=== PATIENT | male | born 1940 | race Caucasian/White ===

== ENCOUNTER 2016-04-24 23:34 | Emergency (ER) | payer OTHER ==
[~2016-04-24] VITALS: Ht 180.3 cm; Wt 99.5 kg
[2016-04-24 23:38] VITALS: TEMP 36.6; Ht 180.3 cm; Wt 99.5 kg
--- NOTE | 2016-04-25 00:20 | EMERGENCY ROOM VISIT NOTE ---
History Report prepared by Nydia: Kamila Schneider Under the Supervision of: Dr. Silvino Moyer M.D. First contact with patient: 23:52 Chief Complaint: URINARY SYMPTOMS Stated Complaint: BLOOD IN URINE Nursing Triage Summary: pt reports he noticed "a lot" of bright red blood in his urine starting at 0 today. Hx of enlarged prostate. Denies flank or back pain. No pain or discomfort during urination. History of Present Illness The patient is a 75 year old male who presents to the Emergency Room with complaints of persistent hematuria that started around 2129 tonight. He admits to some mild flank pain. He states he is still able to urinate normally and denies any dysuria, his urine is just "really red". He denies any history of kidney stones but notes he has a history of an enlarged prostate. He does take a daily baby Aspirin. He denies any fevers, headaches, chest pain, shortness of breath, abdominal pain, rashes or recent trauma. The patient denies any personal history of cancer or blood clots. He also denies any rectal pain or pain with bowel movements. He reports he has never seen a Urologist before. Source of History: patient Onset: 2129 tonight Position: other (urinary system) Timing: other (persistent) Associated Symptoms: + back pain, No SOB, No abdominal pain, No chest pain, No fevers, No headache, No rash Review of Systems See HPI for pertinent positives & negatives. A total of 10 systems reviewed and were otherwise negative. Past Medical & Surgical Medical Problems: (1) Enlarged prostate Family History Cancer Social History Smoking Status: Never Smoker Alcohol Use: none Drug Use: none Marital Status: Housing Status: lives with family Occupation Status: retired Current/Historical Medications Scheduled Ciprofloxacin Tab (Cipro), 1 TAB PO BID Physical Exam Vital Signs Date Time Temp Pulse Resp B/P Pulse Ox O2 Delivery O2 Flow Rate FiO2 04/25/16 01:24 87 18 127/71 95 Room Air 04/24/16 23:38 36.6 104 18 127/79 93 Room Air Physical Exam GENERAL: Patient is mildly anxious appearing and appears to be in minimal distress. HEENT: No acute trauma, normocephalic atraumatic, mucous membranes moist, no nasal congestion, no scleral icterus. NECK: No stridor, no adenopathy, no meningismus, trachea is midline. LUNGS: No dyspnea. Clear to auscultation and equal bilaterally. No wheeze, no rhonchi. HEART: Regular rate and rhythm. No murmurs, rubs, gallops appreciated. ABDOMEN: Soft, nontender, bowel sounds positive, no masses appreciated, no peritonitis. BACK: No midline tenderness, no CVA tenderness EXTREMITIES: Normal motion all extremities, no cyanosis, no edema. NEUROLOGIC: Alert and oriented, no acute motor or sensory deficits, no focal weakness, cranial nerves grossly intact. SKIN: No rash, no jaundice, no diaphoresis. Medical Decision & Procedures Laboratory Results Test 04/25/16 00:30 Urine Color RED Urine Appearance CLOUDY (CLEAR) Urine pH 6.0 (4.5-7.5) Urine Specific [place] 1.025 (1.000-1.030) Urine Protein 3+ (NEG) Urine Glucose (UA) NEG (NEG) Urine Ketones TRACE (NEG) Urine Occult Blood 3+ (NEG) Urine Nitrite NEG (NEG) Urine Bilirubin NEG (NEG) Urine Urobilinogen NEG (NEG) Urine Leukocyte Esterase NEG (NEG) Urine RBC >30 /hpf (0-4) Urine WBC 10-30 /hpf (0-5) Urine Epithelial Cells 20-30 /lpf (0-5) Urine Bacteria 1+ (NEG) Laboratory results as reviewed by me. Medications Administered Medications (Trade) Dose Ordered Sig/Colt Route Start Time Stop Time Status Last Admin Dose Admin Ciprofloxacin (Cipro Tab) 500 mg NOW STAT PO 04/25/16 01:33 04/25/16 01:34 DC 04/25/16 01:38 500 MG Ciprofloxacin (Cipro 500MG Home Pack) 1 homepack UD ONCE PO 04/25/16 01:45 04/25/16 01:46 DC 04/25/16 01:44 1 HOMEPACK ED Course 0015: The patient was evaluated in room B12. A complete history and physical exam was performed. 0133: Cipro Tab 500 mg PO. 0140: I reevaluated the patient. He is feeling much better. I discussed his results and discharge instructions and he verbalized complete understanding and agreement. 0145: Cipro Tab 500 mg 1 homepack PO. Medical Decision Differential: UTI, Cancer, Spontaneous bleed, renal colic, Hemorrhagic Cystitis , Prostatitis amongst other pathologies entertained. 75 yr old male with painless hematuria. Did note very faint right lower back discomfort though no flank pain nor other symptoms. No rashes appreciated. No rectal pain nor pain with bowel movements. Stable and in no distress. UA clearly bloody with 1+ bacteria. Will start 1 week of cipro with PCP follow up in 1 week. Given Uro information to make appointment with them as well. Discussed symptoms requiring return. I did discuss possibility that this is cancer related and the importance of PCP/Uro follow up. Aware risks of retention. With no other significant symptoms I do not feel imaging indicated at this time nor further lab testing. Impression Primary Impression: Blood in urine Scribe Attestation The scribe's documentation has been prepared under my direction and personally reviewed by me in its entirety. I confirm that the note above accurately reflects all work, treatment, procedures, and medical decision making performed by me. Departure Information Dispostion Home / Self-Care Prescriptions Ciprofloxacin Tab (Cipro) 250 Mg Tab 1 TAB PO BID for 7 Days, #14 TAB Prov: Silvino Moyer M.D. 04/25/16 Referrals Evangelist Bragg III, M.D. (PCP) Chinyere Mercado MD Patient Instructions ED Hematuria, My [facility] Additional Instructions Please follow up with your primary care provider in 1 week for repeat check.
[2016-04-25 01:12] LABS: MANUAL MICROSCOPIC REQUIRED? YES; URINE APPEARANCE CLOUDY (CLEAR); URINE BILIRUBIN NEG (NEG); URINE COLOR RED; URINE NITRITE NEG (NEG); URINE SPECIFIC GRAVITY 1.025 (1.000-1.030); UROBILINOGEN NEG (NEG)
[2016-04-25 01:13] LABS: REVIEW REQ? NO
[2016-04-25 01:15] LABS: URINE RBC >30 /hpf (0-4)
[2016-04-25 01:18] LABS: URINE BACTERIA 1+ (NEG)
[2016-04-25 01:19] LABS: ZZUR CULT IF INDIC CLEAN CATCH YES
[2016-04-25 01:24] VITALS: BP 127/71; PULSE 87; O2SAT 95
[2016-04-25] MEDS ORDERED: CIPROFLOXACIN 500 MG TAB PO STA (01:33)
[2016-04-25] MEDS ORDERED: CIPR1TAB11 PO (01:34)
[2016-04-25] MEDS ORDERED: CIPROFLOXACIN 500MG HOME PACK PO ONE (01:45)
[2016-06-12] MEDS ORDERED: SIMV40TA2 PO (14:38)
[2016-06-12] MEDS ORDERED: LISI-461 PO (14:38)
[2016-06-12] MEDS ORDERED: TADA10TA PO (14:38)
[2016-06-12] MEDS ORDERED: CHOL2000 PO (14:38)
[2016-06-12] MEDS ORDERED: ASPI81TA28 PO (14:38)
[2016-06-25] MEDS ORDERED: OXYC-57 PO (11:41)
== END 2016-04-25 01:45 | disposition home or self-care (01) ==
LOC: C.EDB 23:35
DX: R31.9 Hematuria, unspecified (principal); N40.0 Benign prostatic hyperplasia without lower urinary tract symptoms; Z80.9 Family history of malignant neoplasm, unspecified

== ENCOUNTER → 2016-04-30 | Outpatient (CLI) | payer OTHER ==
[~2016-04-30] MED LIST: ASPI81TA28 PO; CHOL2000 PO; CIPR1TAB11 PO; LISI-461 PO; OXYC-57 PO; SIMV40TA2 PO; TADA10TA PO
== END | disposition home or self-care (01) ==
LOC: C.PATHSPEC 17:25
PROVIDERS: ATTEND Urology
DX: Z12.5 Encounter for screening for malignant neoplasm of prostate (principal)

== ENCOUNTER → 2016-05-10 | Outpatient (CLI) | payer OTHER ==
[~2016-05-10] MED LIST changes: -CIPR1TAB11 PO; +OPTIRAY 320 IV PRN
--- NOTE | 2016-05-10 11:06 | DIAGNOSTIC IMAGING REPORT ---
ABDOMEN AND PELVIS CT WITH AND WITHOUT IV CONTRAST, UROGRAM PROTOCOL CT DOSE: 1880.80 mGycm HISTORY: Hematuria. TECHNIQUE: Multiaxial CT images of the abdomen and pelvis were performed both before and after the use of intravenous contrast to evaluate the urinary system. Maximal intensity projection images were performed at the workstation by the radiologist. COMPARISON STUDY: None. FINDINGS: No renal or ureteral calculi. No hydronephrosis. No suspicious filling defects seen within the bilateral renal collecting systems, ureters, or bladder. A 3 mm hypodense lesion within the right kidney is too small to characterize. There is mild to moderate bladder wall thickening. The lung bases are clear. There are few hypodense lesions within the left hepatic dome with the largest measuring 2.2 cm. These favor cysts. The gallbladder, spleen, adrenal glands, and pancreas are unremarkable. No retroperitoneal lymphadenopathy. Left retroaortic renal vein. Small fat-containing umbilical hernia. No bowel wall thickening or obstruction. IMPRESSION: 1. No renal or ureteral stones. No hydronephrosis. 2. No suspicious filling defects seen within the opacified bilateral renal collecting systems, ureters, or bladder. 3. Mild/moderate bladder wall thickening. Some of this may be due to the underdistention. Electronically signed by: Antonio Godinez M.D. 05/10/2016 11:05 AM Dictated Date/Time: 05/10/2016 10:20 AM
== END | disposition home or self-care (01) ==
LOC: C.CTS 09:50
PROVIDERS: ATTEND Urology
DX: R31.9 Hematuria, unspecified (principal)

== ENCOUNTER 2016-06-25 08:29 | Day surgery (SDC) | payer OTHER ==
--- NOTE | 2016-06-12 15:02 | PAT Medication Instructions ---
Service Date Jun 12, 2016. Current Home Medication List Aspirin (Aspirin Ec), 81 MG PO QPM Cholecalciferol (Vitamin D3), 1 CAP PO QPM Lisinopril (Zestril), 10 MG PO QPM Simvastatin (Zocor), 40 MG PO QPM Tadalafil (Cialis), 10 MG PO UD Medication Instructions For Your Scheduled Surgery - Take the following medications as scheduled the night before surgery: Aspirin (Aspirin Ec), 81 MG PO QPM Cholecalciferol (Vitamin D3), 1 CAP PO QPM Simvastatin (Zocor), 40 MG PO QPM - DO NOT Take the following medications as scheduled the night before surgery: Lisinopril (Zestril), 10 MG PO QPM Nothing to eat or drink after midnight If you have any questions please call us at [phone] or [phone] or [phone]
[2016-06-12 15:48] LABS: BASO % 0.3 %; BASO ABS # 0.02 K/uL (0-0.2); COMPLETE YES; EOS % 1.9 %; HEMATOCRIT 45.4 % (42-52); IG% 0.2 %; LYMPH % 12.6 %; LYMPH ABS # 0.78 K/uL (1.2-3.4); MEAN CELL VOLUME 91.2 fL (80-100); MEAN CORPUSCULAR HEMOGLOBIN 30.5 pg (25-34); MEAN CORPUSCULAR HGB CONC 33.5 g/dl (32-36); MEAN PLATELET VOLUME 10.3 fL (7.4-10.4); MONO % 13.4 %; NEUT % 71.6 %; PLATELET COUNT 309 K/uL (130-400); RED BLOOD COUNT 4.98 M/uL (4.7-6.1); WHITE BLOOD COUNT 6.21 K/uL (4.8-10.8)
--- NOTE | 2016-06-12 15:54 | DIAGNOSTIC IMAGING REPORT ---
CHEST 2 VIEWS ROUTINE HISTORY: Preop. COMPARISON: None. FINDINGS: The lungs are clear. Cardiac silhouette is normal in size. No pleural effusions. No pneumothorax. IMPRESSION: No acute process. Electronically signed by: Antonio Godinez M.D. 06/12/2016 3:52 PM Dictated Date/Time: 06/12/2016 3:51 PM
[2016-06-12 15:57] LABS: URINE APPEARANCE CLEAR (CLEAR); URINE BILIRUBIN NEG (NEG); URINE COLOR YELLOW; URINE NITRITE NEG (NEG); URINE PH 6.5 (4.5-7.5); URINE SPECIFIC GRAVITY 1.016 (1.000-1.030); UROBILINOGEN NEG (NEG)
[2016-06-12 16:09] LABS: BUN/CREATININE RATIO 16.3 (10-20); CALCIUM 9.2 mg/dl (8.5-10.1); CREATININE 1.2 mg/dl (0.60-1.40); POTASSIUM 4.2 mmol/L (3.5-5.1)
[2016-06-12 16:15] LABS: MANUAL MICROSCOPIC REQUIRED? NO; REVIEW REQ? NO
[~2016-06-25] VITALS: Ht 180.3 cm; Wt 98.6 kg
[~2016-06-25 08:29] MED LIST changes: +CIPROFLOXACIN / D5W 400 MG IV SCH; +DEXAMETHASONE SOD INJ 4 MG/ML VIAL ONE; +FENTANYL CITRATE INJ 50 MCG/1 ML 2 ML VIAL ONE; +LACTATED RINGER'S 1000ML 1,000 ML IV SCH; +LACTATED RINGER'S 1000ML 500 ML IV ONE; +LIDOCAINE HCL 2% 2 ML VIAL (20MG/ML) ONE; +ONDANSETRON INJ 2 MG/ML 2 ML VIAL ONE; -OPTIRAY 320 IV PRN; -OXYC-57 PO; +PROPOFOL IV EMULSION 10 MG/ML 20 ML VIAL IV ONE
[2016-06-25 09:03] VITALS: BP 137/82; PULSE 100; TEMP 36.9; O2SAT 97; Ht 180.3 cm; Wt 98.6 kg
--- NOTE | 2016-06-25 10:12 | History & Physical Bridge Note ---
H&P Re-Evaluation Bridge Note: I have examined the patient, reviewed the History & Physical and in the interval since the performance of the History & Physical I have noted the following changes of clinical significance: No changes noted
[2016-06-25] MEDS ORDERED: CONRAY 30% 150ML BOTTLE ONE (10:40)
[2016-06-25] MEDS ORDERED: FENTANYL CITRATE INJ 50 MCG/1 ML 2 ML VIAL ONE (11:19)
[2016-06-25] MEDS ORDERED: PHENYLEPHRINE 100MCG/ML 5ML SYR ONE ×2 (11:26→11:27)
[2016-06-25] MEDS ORDERED: OXYC-57 PO (11:41)
--- NOTE | 2016-06-25 11:41 | [facility] Post Operative Brief Note ---
Immediate Operative Summary Operative Date Jun 25, 2016. Pre-Operative Diagnosis abnormal bladder mucosa Post-Operative Diagnosis abnormal bladder mucosa Procedure(s) Performed cystoscopy, bladder biospy, fulgeration Surgeon Dr Barrie Walker Molecular Biology Scientist Surgeon(s) none Estimated Blood Loss 2ml Findings abnormal mucosa at dome Specimens A: Bladder biopsy Drains none Anesthesia gen Complication(s) None Disposition Recovery Room / PACU
--- NOTE | 2016-06-25 11:42 | Discharge Instructions ---
Discharge Instructions Date of Service Jun 25, 2016. Visit Reason for Visit: Abnormal Mucosa Discharge Discharge Diagnosis / Problem: abnormal bladder mucosa Discharge Goals Goal(s): Therapeutic intervention Activity Recommendations Activity Limitations: resume your previous activity (take it easy today) Anesthesia . Post Anesthesia Instructions: If you have had General Anesthesia or IV Sedation: * Do not drive today. * Resume driving when surgeon permits. * Do not make important decisions or sign legal documents today. * Call surgeon for: 1. Temperature elevations greater than 101 degrees F. 2. Uncontrollable pain. 3. Excessive bleeding. 4. Persistent nausea and vomiting. 5. Medication intolerance (nausea, vomiting or rash). * For nausea and vomiting use only clear liquids such as: tea, soda, bouillon until nausea subsides, then gradually increase diet as tolerated. * If you have any concerns or questions, call your surgeon's office. If physician is unavailable and it is an emergency, call 911 or go to the nearest emergency room. . Diet Recommendations Recommended Home Diet: resume previous diet Procedures Procedures Performed: cystoscopy, bladder biospy, fulgeration Pending Studies Studies pending at discharge: no Medical Emergencies . Who to Call and When: Medical Emergencies: If at any time you feel your situation is an emergency, please call 911 immediately. . Non-Emergent Contact Non-Emergency issues call your: Urologist . . "Provider Documentation" section prepared by Barrie Walker. [place] Drug Monitoring Program Search Results: patient reviewed within database
[2016-06-25] MEDS ORDERED: OXYCODONE/ACETAMINOPHEN 5-325 TAB PO PRN (11:45)
--- NOTE | 2016-06-25 12:22 | Anesthesiology Progress Note ---
Anesthesia Post Op Note Date & Time Jun 25, 2016 at 12:22 Vital Signs Pain Intensity: 0 Vital Signs Past 12 Hours Date Time Temp Pulse Resp B/P Pulse Ox O2 Delivery O2 Flow Rate FiO2 06/25/16 12:15 36.7 100 13 117/77 94 Room Air 06/25/16 12:05 94 11 107/78 92 Room Air 06/25/16 11:55 100 19 116/74 99 Mask 10 06/25/16 11:45 105 15 98/63 96 Mask 10 06/25/16 11:39 36.5 112 12 122/67 95 Mask 10 06/25/16 09:03 36.9 100 18 137/82 97 Room Air Notes Mental Status: alert / awake / arousable, participated in evaluation Pt Amnestic to Procedure: Yes Nausea / Vomiting: adequately controlled Pain: adequately controlled Airway Patency, RR, SpO2: stable & adequate BP & HR: stable & adequate Hydration State: stable & adequate Anesthetic Complications: no major complications apparent
[2016-06-25 12:25] VITALS: BP 119/73; PULSE 93; TEMP 36.9; O2SAT 95
[2016-06-25 12:55] VITALS: BP 120/76; PULSE 84; TEMP 36.3; O2SAT 98
[2016-06-25 13:25] VITALS: BP 119/70; PULSE 89; TEMP 36.6; O2SAT 97
--- NOTE | 2016-06-25 14:00 | OPERATIVE REPORT ---
DATE OF OPERATION: 06/25/2016 PREOPERATIVE DIAGNOSIS: Abnormal bladder mucosa. POSTOPERATIVE DIAGNOSIS: Same. PROCEDURE: Cystoscopy, bladder biopsy x4 with fulguration. FINDINGS: Cystoscopic exam revealed normal anterior urethra. Prostatic fossa was mild to moderately obstructing with kissing lateral lobes and elevated median lobe. Bladder showed 1+ trabeculation. There were no bladder tumors seen. Both ureteral orifices were effluxing clear urine. There was an area on the dome of the bladder which was some beefy red and heaped up mucosa which was somewhat worrisome for carcinoma in situ. SURGEON: Dr. Walker. ANESTHESIA: General. DRAINS: None. COMPLICATIONS: None. SPECIMENS: Bladder biopsy x4. INDICATIONS: The patient is a 75-year-old white male who on workup for hematuria was found to have some abnormal bladder mucosa is being brought in now for biopsy. PROCEDURE: After the induction of an adequate general anesthetic and appropriate time-out, the patient was placed in the dorsal lithotomy position, lower abdomen and genitalia were prepped with Hibiclens and draped in a sterile fashion. Using a 22-Cymraes cystoscope, routine cystoscopic exam was performed with the above-noted findings with the 30 and 70 degree lenses. Next, using cold cup biopsy forceps, the abnormal mucosa was biopsied x4 and off the table as specimen. Next, using a Bugbee electrode the entire area was fulgurated for hemostasis and to eliminate the rest of the abnormal-looking mucosa. After completing this making sure there was no bleeding. The patient's bladder was drained, cystoscope and sheath were removed. All needle, sponge and instrument counts were correct at the end of the case. The patient tolerated the procedure well and went to the recovery room in stable condition. I attest to the content of the Intraoperative Record and any orders documented therein. Any exceptio ns are noted below.
== END 2016-06-25 13:40 | disposition home or self-care (01) ==
LOC: C.ACU 08:29
PROVIDERS: ATTEND Urology
DX: R94.8 Abnormal results of function studies of other organs and systems (principal); N40.0 Benign prostatic hyperplasia without lower urinary tract symptoms; Z87.891 Personal history of nicotine dependence; Z79.82 Long term (current) use of aspirin; Z83.3 Family history of diabetes mellitus

== ENCOUNTER 2020-07-14 16:42 | Inpatient (IN) ==
[2020-07-14] MEDS ORDERED: SODIUM CHLORIDE 0.9% 1000ML 1,000 ML IV ONE (17:13)
--- NOTE | 2020-07-14 17:20 | Emergency Department Note ---
Impression & Plan Pneumonia due to COVID-19 virus, Hypoxia, Breath shortness ED Provider Note NAME: VIKAS COLLINS AGE: 79 SEX: M : 1940 ARRIVES VIA: Walk-In INFORMANT: Patient ED PROVIDER(S): Mainor Massey DO CHIEF COMPLAINT: Shortness of breath HPI: Patient is an 79-year-old male who presents to the ER for shortness of breath. Symptoms started this past Friday. He admits to cough and congestion as well as loss of taste or smell. Everybody in the family's been sick with same symptoms. Denies any headache or change in vision. No chest pain, belly pain, nausea, vomiting, or diarrhea. No dysuria, urgency, or frequency. ROS: See above HPI for pertinent positives & negatives. A total of 10 systems reviewed and were otherwise negative. PAST MEDICAL HISTORY:See Below PAST SURGICAL HISTORY:See Below FAMILY HISTORY:See Below SOCIAL HISTORY:See Below HOME MEDICATIONS:See Below ALLERGIES:See Below VITALS:See Below PHYSICAL EXAMINATION: GENERAL: Sitting up in bed, alert, ill-appearing, disheveled, on nasal cannula EYE EXAM: normal conjunctiva. OROPHARYNX: no exudate, no erythema, lips, buccal mucosa, and tongue normal and mucous membranes are moist NECK: supple, no nuchal rigidity, no adenopathy, non-tender LUNGS: Diminished bilaterally. Normal chest wall mechanics HEART: no murmurs, S1 normal and S2 normal ABDOMEN: abdomen soft, non-tender, normo-active bowel sounds, no masses, no rebound or guarding. BACK: Back is symmetrical on inspection and there is no deformity, no midline tenderness, no CVA tenderness. SKIN: no rashes and no bruising UPPER EXTREMITIES: upper extremities are grossly normal. LOWER EXTREMITIES: No pitting edema. Calves are equal bilateral NEURO EXAM: Normal sensorium, cranial nerves II-XII grossly intact, normal speech, no gross weakness of arms, no gross weakness of legs. MEDICAL DECISION MAKING: Patient is an 79-year-old male who presents ER with a cough and shortness of breath. He was found to be hypoxic. He was placed on 4 L nasal cannula initially. IV was established blood work was obtained. Labs show no significant leukocytosis or anemia. BMP with mild hyponatremia. LFTs bilirubin was unremarkable. Troponin was negative. He is Covid positive. Chest x-ray with multifocal pneumonia. Lipase slightly elevated at 458. Patient was given steroids and remained on nasal cannula. He was updated bedside and discussed with the hospitalist for further evaluation. Triage Nursing notes reviewed. Limited review of prior medical records performed Vital Signs: reviewed and remarkable for hypoxic Differential diagnosis: Differential diagnoses includes but is not limited to pneumonia, bronchitis, COPD/Asthma exacerbation, pneumothorax, pulmonary embolism, congestive heart failure, acute coronary syndrome ER treatment provided: See below Diagnostics interpreted by me: ECG: Sinus rhythm rate of 91 Left axis No PVCs QTC 396 Cardiac Monitoring: An order was placed for continuous cardiac monitoring. The monitor shows a rate of 80 with sinus rhythm. Laboratory studies: As stated above and show below. Imaging studies: Portable AP upright 1 view of the chest shows multifocal pneumonia Consultation(s): Discussed with the hospitalist for further evaluation Procedures: none Critical Care: I have personally spent 40 minutes of critical care time in the direct management of this patient. This includes bedside care, interpretation of diagnostic studies, and testing, discussion with consultants, patient, and family members, and other required patient management activities. This 40 min utes is in excess of all separately billable procedures. Past Med/Surg History Medical History (Updated 07/14/20 @ 21:38 by Mainor Massey DO) Hematuria No pertinent past medical history Prostate cancer screening encounter, options and risks discussed Surgical History (Updated 11/22/19 @ 14:52 by Todd Pascual) No pertinent past surgical history Family History (Updated 11/22/19 @ 14:53 by Todd Pascual) Brother Diabetes Social History (Updated 11/22/19 @ 14:53 by Todd Pascual) Smoking Status: Former smoker Tobacco Type: Cigarettes Preferred Language: Citizen Of [place] marital status: Feels Safe at Home: Yes Allergies Allergies Allergy/AdvReac Type Severity Reaction Status Date / Time ENVIRONMENTAL Allergy Intermediate RUNNY Uncoded 07/14/20 17:37 NOSE, SNEEZING Home Meds Home Medications Medication Instructions Recorded Confirmed cholecalciferol (vitamin D3) 25 1,000 unit PO DAILY 11/22/19 07/14/20 mcg (1,000 unit) tablet coQ10 (ubiquinol) 100 mg capsule 100 mg PO DAILY 11/22/19 07/14/20 lisinopril 10 mg tablet 10 mg PO DAILY 11/22/19 07/14/20 simvastatin 40 mg tablet 40 mg PO HS 11/22/19 07/14/20 tadalafil 20 mg tablet 10 - 20 mg PO DIRECTED PRN 11/22/19 07/14/20 aspirin 81 mg PO DAILY 07/14/20 07/14/20 dextromethorphan-guaifenesin 10 ml PO DIRECTED PRN 07/14/20 07/14/20 [Delsym Cough-Chest Congest DM] tamsulosin 0.8 mg PO DAILY 07/14/20 07/14/20 Results & Data (ED) Vital Signs Vital Signs - 24 hr 07/14/20 16:55 07/14/20 17:16 07/14/20 17:20 Temperature 37.6 C H Temperature Source Temporal Artery Scan Pulse Rate 93 H 88 90 Pulse Rate from SpO2 Sensor 87 88 Pulse Rhythm Respiratory Rate 24 Respiratory Effort / Characteristics Short of Breath Blood Pressure 144/66 H Blood Pressure Mean 92 Blood Pressure Position Sitting Pulse Oximetry 74 L 96 94 Oxygen Delivery Method Room Air Oxygen Flow Rate Sepsis Recent Fever Within 48 Hours No Sepsis New/Unexplained Change in Mental Status N/A Sepsis Action Taken by Nursing No Action Required 07/14/20 17:26 07/14/20 17:30 07/14/20 17:40 Temperature Temperature Source Pulse Rate 88 88 95 H Pulse Rate from SpO2 Sensor 88 91 H Pulse Rhythm Regular Respiratory Rate 20 21 Respiratory Effort / Characteristics Blood Pressure Blood Pressure Mean Blood Pressure Position Pulse Oximetry 95 94 94 Oxygen Delivery Method Oxymask Oxygen Flow Rate 8 Sepsis Recent Fever Within 48 Hours Sepsis New/Unexplained Change in Mental Status Sepsis Action Taken by Nursing 07/14/20 17:50 07/14/20 18:00 07/14/20 18:01 Temperature Temperature Source Pulse Rate 88 89 89 Pulse Rate from SpO2 Sensor 90 91 H 89 Pulse Rhythm Respiratory Rate 32 H Respiratory Effort / Characteristics Blood Pressure 138/64 Blood Pressure Mean 88 Blood Pressure Position Pulse Oximetry 96 96 97 Oxygen Delivery Method Oxygen Flow Rate Sepsis Recent Fever Within 48 Hours Sepsis New/Unexplained Change in Mental Status Sepsis Action Taken by Nursing 07/14/20 18:10 07/14/20 18:20 07/14/20 18:30 Temperature Temperature Source Pulse Rate 85 83 83 Pulse Rate from SpO2 Sensor 86 85 83 Pulse Rhythm Respiratory Rate 29 H 32 H 37 H Respiratory Effort / Characteristics Blood Pressure 130/67 Blood Pressure Mean 88 Blood Pressure Position Pulse Oximetry 96 94 96 Oxygen Delivery Method Oxygen Flow Rate Sepsis Recent Fever Within 48 Hours Sepsis New/Unexplained Change in Mental Status Sepsis Action Taken by Nursing 07/14/20 18:31 07/14/20 18:40 07/14/20 18:50 Temperature Temperature Source Pulse Rate 81 83 82 Pulse Rate from SpO2 Sensor 81 83 82 Pulse Rhythm Respiratory Rate 35 H 29 H 27 H Respiratory Effort / Characteristics Blood Pressure Blood Pressure Mean Blood Pressure Position Pulse Oximetry 96 95 93 Oxygen Delivery Method Oxygen Flow Rate Sepsis Recent Fever Within 48 Hours Sepsis New/Unexplained Change in Mental Status Sepsis Action Taken by Nursing 07/14/20 19:00 07/14/20 19:01 07/14/20 19:10 Temperature Temperature Source Pulse Rate 82 83 83 Pulse Rate from SpO2 Sensor 83 84 83 Pulse Rhythm Respiratory Rate 33 H 40 H 32 H Respiratory Effort / Characteristics Blood Pressure 129/64 Blood Pressure Mean 85 Blood Pressure Position Pulse Oximetry 94 93 96 Oxygen Delivery Method Oxygen Flow Rate Sepsis Recent Fever Within 48 Hours Sepsis New/Unexplained Change in Mental Status Sepsis Action Taken by Nursing 07/14/20 19:20 07/14/20 19:30 07/14/20 19:31 Temperature Temperature Source Pulse Rate 96 H 84 80 Pulse Rate from SpO2 Sensor 99 H 83 81 Pulse Rhythm Respiratory Rate 20 35 H 26 H Respiratory Effort / Characteristics Blood Pressure 121/70 Blood Pressure Mean 87 Blood Pressure Position Pulse Oximetry 90 93 94 Oxygen Delivery Method Oxygen Flow Rate Sepsis Recent Fever Within 48 Hours Sepsis New/Unexplained Change in Mental Status Sepsis Action Taken by Nursing 07/14/20 19:40 07/14/20 19:50 07/14/20 20:00 Temperature Temperature Source Pulse Rate 84 81 78 Pulse Rate from SpO2 Sensor 83 81 78 Pulse Rhythm Respiratory Rate 21 28 H 31 H Respiratory Effort / Characteristics Blood Pressure 132/68 Blood Pressure Mean 89 Blood Pressure Position Pulse Oximetry 93 93 92 Oxygen Delivery Method Oxygen Flow Rate Sepsis Recent Fever Within 48 Hours Sepsis New/Unexplained Change in Mental Status Sepsis Action Taken by Nursing 07/14/20 20:01 07/14/20 20:10 07/14/20 20:20 Temperature Temperature Source Pulse Rate 81 81 81 Pulse Rate from SpO2 Sensor 81 81 81 Pulse Rhythm Respiratory Rate 27 H Respiratory Effort / Characteristics Blood Pressure Blood Pressure Mean Blood Pressure Position Pulse Oximetry 93 94 94 Oxygen Delivery Method Oxygen Flow Rate Sepsis Recent Fever Within 48 Hours Sepsis New/Unexplained Change in Mental Status Sepsis Action Taken by Nursing 07/14/20 20:30 07/14/20 20:31 07/14/20 20:40 Temperature Temperature Source Pulse Rate 80 81 78 Pulse Rate from SpO2 Sensor 78 81 78 Pulse Rhythm Respiratory Rate 31 H 36 H Respiratory Effort / Characteristics Blood Pressure 124/66 Blood Pressure Mean 85 Blood Pressure Position Pulse Oximetry 93 92 93 Oxygen Delivery Method Oxygen Flow Rate Sepsis Recent Fever Within 48 Hours Sepsis New/Unexplained Change in Mental Status Sepsis Action Taken by Nursing 07/14/20 20:50 07/14/20 21:00 07/14/20 21:01 Temperature Temperature Source Pulse Rate 73 75 79 Pulse Rate from SpO2 Sensor 72 76 79 Pulse Rhythm Respiratory Rate 29 H 35 H 39 H Respiratory Effort / Characteristics Blood Pressure 128/60 Blood Pressure Mean 82 Blood Pressure Position Pulse Oximetry 93 93 93 Oxygen Delivery Method Oxygen Flow Rate Sepsis Recent Fever Within 48 Hours Sepsis New/Unexplained Change in Mental Status Sepsis Action Taken by Nursing Laboratory Data Result diagrams: 07/14/20 17:20 07/14/20 17:20 Lab Results 07/14/20 07/14/20 07/14/20 Range/Units 17:20 17:20 18:02 WBC 7.02 (4.8-10.8) K/uL RBC 4.50 L (4.7-6.1) M/uL Hgb 13.8 L (14.0-18.0) g/dL Hct 40.0 L (42-52) % MCV 88.9 (80-100) fL MCH 30.7 (25-34) pg MCHC 34.5 (32-36) g/dL RDW Std Deviation 45.6 (36.4-46.3) fL RDW Coeff of Coretta 13.8 (11.5-14.5) % Plt Count 290 (130-400) K/uL MPV 9.8 (7.4-10.4) fL Immature Gran % (Auto) 0.1 % Neut % (Auto) 89.7 % Lymph % (Auto) 4.4 % [place] % (Auto) 5.3 % Eos % (Auto) 0.4 % Baso % (Auto) 0.1 % Neut # (Auto) 6.29 (1.4-6.5) K/uL Lymph # (Auto) 0.31 L (1.2-3.4) K/uL [place] # (Auto) 0.37 (0.11-0.59) K/uL Eos # (Auto) 0.03 (0-0.5) K/uL Baso # (Auto) 0.01 (0-0.2) K/uL Immature Gran # (Auto) 0.01 (0.00-0.02) K/uL Sodium 134 L (136-145) mmol/L Potassium 4.5 (3.5-5.1) mmol/L Chloride 105 (98-107) mmol/L Carbon Dioxide 24 (21-32) mmol/L Anion Gap 5.0 (3-11) BUN 35 H (7-18) mg/dl Creatinine 1.47 H (0.6-1.4) mg/dl Est Cr Clr Drug Dosing 46.5 ml/min Est GFR ( Amer) 51.1 Est GFR (Non-Af Amer) 44.1 BUN/Creatinine Ratio 23.5 H (10-20) Glucose 114 H (70-99) mg/dl Calcium 8.6 (8.5-10.1) mg/dl Total Bilirubin 0.6 (0.2-1) mg/dl AST 58 H (15-37) U/L ALT 54 (12-78) U/L Alkaline Phosphatase 67 (45-117) U/L Troponin I < 0.015 (0-0.045) ng/ml Total Protein 8.1 (6.4-8.2) gm/dl Albumin 3.2 L (3.4-5.0) gm/dl Globulin 4.9 H (2.5-4.0) gm/dl Albumin/Globulin Ratio 0.7 L (0.9-2) Lipase 458 H (73-393) U/L COVID-19 Eval Order CovFluRsv at [facility] SARS-CoV-2 (PCR) (Negative) Influenza Type A (PCR) (Neg) Influenza Type B (PCR) (Neg) RSV (RT-PCR) (Neg) 07/14/20 Range/Units 18:02 WBC (4.8-10.8) K/uL RBC (4.7-6.1) M/uL Hgb (14.0-18.0) g/dL Hct (42-52) % MCV (80-100) fL MCH (25-34) pg MCHC (32-36) g/dL RDW Std Deviation (36.4-46.3) fL RDW Coeff of Coretta (11.5-14.5) % Plt Count (130-400) K/uL MPV (7.4-10.4) fL Immature Gran % (Auto) % Neut % (Auto) % Lymph % (Auto) % [place] % (Auto) % Eos % (Auto) % Baso % (Auto) % Neut # (Auto) (1.4-6.5) K/uL Lymph # (Auto) (1.2-3.4) K/uL [place] # (Auto) (0.11-0.59) K/uL Eos # (Auto) (0-0.5) K/uL Baso # (Auto) (0-0.2) K/uL Immature Gran # (Auto) (0.00-0.02) K/uL Sodium (136-145) mmol/L Potassium (3.5-5.1) mmol/L Chloride (98-107) mmol/L Carbon Dioxide (21-32) mmol/L Anion Gap (3-11) BUN (7-18) mg/dl Creatinine (0.6-1.4) mg/dl Est Cr Clr Drug Dosing ml/min Est GFR ( Amer) Est GFR (Non-Af Amer) BUN/Creatinine Ratio (10-20) Glucose (70-99) mg/dl Calcium (8.5-10.1) mg/dl Total Bilirubin (0.2-1) mg/dl AST (15-37) U/L ALT (12-78) U/L Alkaline Phosphatase (45-117) U/L Troponin I (0-0.045) ng/ml Total Protein (6.4-8.2) gm/dl Albumin (3.4-5.0) gm/dl Globulin (2.5-4.0) gm/dl Albumin/Globulin Ratio (0.9-2) Lipase (73-393) U/L COVID-19 Eval Order SARS-CoV-2 (PCR) POSITIVE A* (Negative) Influenza Type A (PCR) Negative (Neg) Influenza Type B (PCR) Negative (Neg) RSV (RT-PCR) Negative (Neg) Administered Medications Discontinued Medications Dexamethasone Sodium Phosphate (DexamethasonePf 10 Mg/Ml Vial) 8 mg IV NOW ONE Stop: 07/14/20 17:49 Last Admin: 07/14/20 18:20 Dose: 8 mg Documented by: [id number] Sodium Chloride (Nss 1000ml) 1,000 mls @ 999 mls/hr IV .Q1H1M ONE Stop: 07/14/20 18:13 Last Admin: 07/14/20 18:02 Dose: 999 mls/hr Documented by: [id number] Imaging Data Radiologist's Impression: Chest X-Ray 07/14/20 17:13 XR chest 1V portable CLINICAL HISTORY: Atypical chest pain. COMPARISON STUDY: Chest radiograph June 12, 2016. FINDINGS: Lung volumes are normal. There is no pneumothorax or pleural effusion. Moderate multifocal bilateral airspace opacities are noted. These are most pronounced within the left mid to lower lung. Cardiac size is at the upper limits of normal. IMPRESSION: Moderate multifocal bilateral airspace opacities suggestive of an infectious process such as viral pneumonia. Radiographic follow-up to ensure resolution is recommended. ACT 112: Negative or not required by law. Electronically signed by: Adrian Olson M.D. 07/14/2020 5:41 PM Discharge Plan Visit Data Chief Complaint: Illness Stated Complaint: COVID SYMPTOMS ED Provider: Mainor Massey Discharge Problem: Pneumonia due to COVID-19 virus, Hypoxia, Breath shortness Discharge Instructions Interventions: ED Discharge Assessment Last Done: 07/14/20 21:08 Forms Stand Alone Forms: My [facility] [employer] Prescriptions Prescriptions: No Action coQ10 (ubiquinol) 100 mg capsule 100 mg PO DAILY RF: 0 cholecalciferol (vitamin D3) 25 mcg (1,000 unit) tablet 1,000 unit PO DAILY RF: 0 tadalafil 20 mg tablet 10 - 20 mg PO DIRECTED PRN (Reason: Erectile Dysfunction) RF: 0 lisinopril 10 mg tablet 10 mg PO DAILY RF: 0 simvastatin 40 mg tablet 40 mg PO HS RF: 0 aspirin 81 mg Tablet,Delayed Release (Dr/Ec) 81 mg PO DAILY RF: 0 Delsym Cough-Chest Congest DM 5-100 mg/5 mL Liquid 10 ml PO DIRECTED PRN (Reason: Cough) RF: 0 tamsulosin 0.4 mg capsule 0.8 mg PO DAILY RF: 0 Referrals Referrals: Evangelist Bragg MD [Primary Care Provider] -
[2020-07-14 17:31] LABS: Basophils # (auto) 0.01 K/uL (0-0.2); Basophils % (auto) 0.1 %; Eosinophils # (auto) 0.03 K/uL (0-0.5); Eosinophils % (auto) 0.4 %; Hemoglobin 13.8 g/dL (14.0-18.0); Immature Granulocytes # (auto) 0.01 K/uL (0.00-0.02); Immature Granulocytes % (auto) 0.1 %; Lymphocytes # (auto) 0.31 K/uL (1.2-3.4); Lymphocytes % (auto) 4.4 %; Mean Corpuscular Hemoglobin 30.7 pg (25-34); Mean Corpuscular Hgb Conc 34.5 g/dL (32-36); Mean Corpuscular Volume 88.9 fL (80-100); Mean Platelet Volume 9.8 fL (7.4-10.4); Monocytes # (auto) 0.37 K/uL (0.11-0.59); Monocytes % (auto) 5.3 %; Neutrophils # (auto) 6.29 K/uL (1.4-6.5); Neutrophils % (auto) 89.7 %; Platelet Count 290 K/uL (130-400); RDW Coefficient of Variation 13.8 % (11.5-14.5); RDW Standard Deviation 45.6 fL (36.4-46.3); White Blood Count 7.02 K/uL (4.8-10.8)
--- NOTE | 2020-07-14 17:43 | XRay Report ---
XR chest 1V portable CLINICAL HISTORY: Atypical chest pain. COMPARISON STUDY: Chest radiograph June 12, 2016. FINDINGS: Lung volumes are normal. There is no pneumothorax or pleural effusion. Moderate multifocal bilateral airspace opacities are noted. These are most pronounced within the left mid to lower lung. Cardiac size is at the upper limits of normal. IMPRESSION: Moderate multifocal bilateral airspace opacities suggestive of an infectious process suc h as viral pneumonia. Radiographic follow-up to ensure resolution is recommended. ACT 112: Negative or not required by law. Electronically signed by: Adrian Olson M.D. 07/14/2020 5:41 PM
[2020-07-14 17:47] LABS: Albumin Level 3.2 gm/dl (3.4-5.0); BUN Creatinine Ratio 23.5 (10-20); Blood Urea Nitrogen 35 mg/dl (7-18); Calcium 8.6 mg/dl (8.5-10.1); Carbon Dioxide 24 mmol/L (21-32); Chloride 105 mmol/L (98-107); Creatinine Clr Calc Pharmacy 46.5 ml/min; Est GFR (African American) 51.1; Est GFR (Non-African American) 44.1; Glucose 114 mg/dl (70-99); Lipase 458 U/L (73-393); Potassium 4.5 mmol/L (3.5-5.1); Sodium 134 mmol/L (136-145)
[2020-07-14] MEDS ORDERED: dexAMETHasone**PF** 10 MG/ML VIAL IV ONE (17:48)
[2020-07-14 17:55] LABS: Alanine Aminotransferase 54 U/L (12-78); Albumin Globulin Ratio 0.7 (0.9-2); Alkaline Phosphatase 67 U/L (45-117); Aspartate Aminotransferase 58 U/L (15-37); Bilirubin,Total 0.6 mg/dl (0.2-1); Globulin 4.9 gm/dl (2.5-4.0); Total Protein 8.1 gm/dl (6.4-8.2); Troponin I < 0.015 ng/ml (0-0.045)
[2020-07-14 19:29] LABS: Influenza A virus by PCR Negative (Neg); Influenza B virus by PCR Negative (Neg); RSV by PCR Negative (Neg)
[2020-07-14 20:09] LABS: SARS CoV2 RNA(COVID-19) InHosp POSITIVE (Negative)
[2020-07-14] MEDS ORDERED: ACETAMINOPHEN 325 MG TAB PO PRN (21:55)
[2020-07-14] MEDS ORDERED: SODIUM CHLORIDE 0.9% 1000ML 1,000 ML IV SCH (21:55)
[2020-07-14] MEDS ORDERED: REMDESIVIR 200 MG in SODIUM CHLORIDE 0.9% 210 ML IV STA (21:58)
--- NOTE | 2020-07-14 21:59 | History and Physical Report ---
DATE OF ADMISSION: 07/14/2020 CHIEF COMPLAINT: Fever, cough, and shortness of breath. HISTORY OF PRESENT ILLNESS: This is an 79-year-old male with past medical history significant for hyperlipidemia, hypertension, who lives with his 5 family members with his and sons having symptoms of cough, fever since last Friday, having fever on and off and bringing some phlegm with cough, poor appetite, feeling weak, tired and getting short of breath, not getting better, so came to the ER. In the ER, he was saturating 74%, requiring 8 liters OxyMask. Currently with oxygen he is feeling fine and is able to talk and give history. Son is in the room. Son says all the family members are sick. While all of them got better, but dad was only not getting better and was bought to ER. Denies any chest pain, some nausea, no vomiting, no abdominal pain, some diarrhea. Normal bladder movements. Has headache, and some runny nose, no earaches, no sore throat. He has loss of sense of smell and taste and poor appetite. Otherwise, ambulating okay at home. ALLERGIES: No known drug allergies. PAST MEDICAL HISTORY: As mentioned above. PAST SURGICAL HISTORY: Removal of tonsillectomy. MEDICATIONS: Aspirin 81 mg p.o. daily, vitamin D 1000 units p.o. daily, Coenzyme Q10 100 mg p.o. daily, Delsym DM 10 mL p.o. p.r.n., lisinopril 10 mg p.o. daily, simvastatin 40 mg p.o. at bedtime, Flomax 0.8 mg p.o. daily. FAMILY HISTORY: Significant for brother has diabetes and heart disorder. SOCIAL HISTORY: and lives with his family. No smoking, no alcohol, no drug use. REVIEW OF SYMPTOMS: As per HPI. Rest of review of systems negative. PHYSICAL EXAMINATION: GENERAL: The patient is of moderate build, not in acute distress. VITAL SIGNS: Temperature 37.6, pulse 81, respiratory rate 28, blood pressure 121/70, oxygen 72% on room air, 93% on 8 liters OxyMask. HEENT: Pupils equal, round, reactive to light. Oral mucosa dry. NECK: No JVD. No neck masses. CARDIOVASCULAR: S1, S2 heard, regular rate and rhythm, no murmur, no gallop. RESPIRATORY SYSTEM: Normal AP diameter. No accessory muscle use. Mild bibasilar crackles. No wheezing. ABDOMEN: Soft, bowel sounds present, nontender. No distention. CENTRAL NERVOUS SYSTEM: Cranial nerves II-XII grossly intact, nonfocal. EXTREMITIES: No edema, no erythema. LABORATORY DATA: WBC 7, hemoglobin 13.8, hematocrit 40, platelets 290. Sodium 134, potassium 4.5, chloride 105, bicarbonate 24, BUN 35, creatinine 1.4, serum glucose 114, calcium 8.6, total bilirubin 0.6, AST 58, ALT 54, alkaline phosphatase 67. Troponin I less than 0.015. Lipase 458. SARS-CoV-2 PCR positive. Influenza A and B PCR negative, RSV PCR negative. IMAGING DATA: Chest x-ray, moderate multifocal bilateral airspace opacities suggestive of infectious process such as viral pneumonia. EKG: Sinus rhythm with first degree AV block at a rate of 91. Incomplete right bundle branch block, Q-waves in inferior leads. ASSESSMENT AND PLAN: An 79-year-old male presents with COVID pneumonia and hypoxia. 1. COVID pneumonia, hypoxia. Symptoms started since last Friday, about 6-7 days ago. Hypoxic, requiring 8 liters OxyMask. Meets criteria for remdesivir and steroids. Continue steroids and remdesivir. Follow remdesivir labs. Monitor inflammatory markers. Closely monitor in tele floor. 2. History of hypertension. Continue his lisinopril. 3. History of hyperlipidemia. Continue statin. 4. History of benign prostatic hypertrophy, ongoing. Monitor for urinary retention. We will continue his Flomax. 5. Chronic kidney disease stage III, creatinine is 1.4, which seems to be close to baseline. We will follow the labs. 6. Deep venous thrombosis prophylaxis. We will place him on Lovenox. DISPOSITION: Closely monitor in the tele floor. Level 1 full code. Expect discharge home and follow with family doctor. JOE
[2020-07-14] MEDS: SIMVASTATIN 40 MG TAB PO SCH (23:34)
[2020-07-15] MEDS: SODIUM CHLORIDE 0.9% 10ML FLUSH IV SCH ×2 (01:48→22:40)
[2020-07-15 06:43] LABS: Hemoglobin 12.8 g/dL (14.0-18.0); Immature Granulocytes # (auto) 0.01 K/uL (0.00-0.02); Immature Granulocytes % (auto) 0.2 %; Lymphocytes # (auto) 0.14 K/uL (1.2-3.4); Lymphocytes % (auto) 3.2 %; Mean Corpuscular Hgb Conc 33.7 g/dL (32-36); Mean Corpuscular Volume 89.2 fL (80-100); Mean Platelet Volume 9.9 fL (7.4-10.4); Monocytes # (auto) 0.29 K/uL (0.11-0.59); Monocytes % (auto) 6.6 %; Neutrophils # (auto) 3.94 K/uL (1.4-6.5); Platelet Count 259 K/uL (130-400); RDW Coefficient of Variation 13.9 % (11.5-14.5); RDW Standard Deviation 45.8 fL (36.4-46.3); Red Blood Count 4.26 M/uL (4.7-6.1); White Blood Count 4.38 K/uL (4.8-10.8)
[2020-07-15 06:53] LABS: D Dimer 2390 ug/L FEU (0-500)
[2020-07-15 07:32] LABS: Alanine Aminotransferase 53 U/L (12-78); Albumin Level 2.5 gm/dl (3.4-5.0); Aspartate Aminotransferase 52 U/L (15-37); BUN Creatinine Ratio 25.4 (10-20); Bilirubin Direct 0.1 mg/dl (0-0.2); Blood Urea Nitrogen 30 mg/dl (7-18); Calcium 7.8 mg/dl (8.5-10.1); Carbon Dioxide 23 mmol/L (21-32); Chloride 110 mmol/L (98-107); Creatinine Clr Calc Pharmacy 58.1 ml/min; Est GFR (African American) 67.4; Est GFR (Non-African American) 58.1; Glucose 165 mg/dl (70-99); Magnesium 2.3 mg/dl (1.8-2.4); Potassium 4.6 mmol/L (3.5-5.1); Sodium 137 mmol/L (136-145)
[2020-07-15 07:34] LABS: Alkaline Phosphatase 61 U/L (45-117); Bilirubin,Total 0.4 mg/dl (0.2-1); Ferritin 489.1 ng/ml (8-388); Total Protein 6.8 gm/dl (6.4-8.2); Troponin I < 0.015 ng/ml (0-0.045)
[2020-07-15] MEDS: dexAMETHasone 6 MG in SYRINGE 0 ML IV SCH (08:27)
[2020-07-15] MEDS: CHOLECALCIFEROL 1,000 UNITS 25 MCG TAB PO SCH (08:27)
[2020-07-15] MEDS: ASPIRIN 81 MG ECTAB PO SCH (08:27)
[2020-07-15] MEDS: lisinopril 10 MG TAB PO SCH (08:27)
[2020-07-15] MEDS: TAMSULOSIN HCL 0.4 MG CAP PO SCH (08:28)
[2020-07-15] MEDS: ENOXAPARIN INJ 40 MG/0.4 ML SYR SQ SCH (08:31)
[2020-07-15] MEDS ORDERED: NON-FORMULARY MEDICATION (Coq10 (Ubiquinol) 100 mg capsule) PO SCH (09:00)
--- NOTE | 2020-07-15 19:04 | Hospitalist Progress Note ---
Date of Service July 15, 2020 Assessment & Plan (1) Pneumonia due to COVID-19 virus: (2) Hypoxia: Present on admission with cough, fever and SOB since Friday CXR showed moderate multifocal bilateral airspace opacities suggestive of an infectious process such as viral pneumonia Continue Dexamethasone 6mg IV daily and remdesivir daily Will monitor LFT while on Remdesivir Will check inflammatory markers Since symptoms as been going for 1 week, not a candidate for convalescent plasma Continue oxygen supplement Pt was encouraged to prone Continue monitor closely Elevated D-Dimer Mostly related to COVID 19 If no improvement in respiratory status, consider to get a doppler of LE Continue monitor History of hypertension BP stable Continue his lisinopril History of hyperlipidemia Continue statin. History of benign prostatic hypertrophy Continue Flomax. Chronic kidney disease stage III Creatinine 1.17 Stable DVT px on Lovenox subq Code status Full code Admission and Anticipated Discharge Date Admission Date: July 14, 2020 Subjective Pt was seen and examined for follow of SOB due to COVID 19 Lying in bed with nod distress watching TV Pt said that his breathing a little better compare to when he came Denies any chest pain, palpitation, dizziness and SOB Review of Systems Review of Systems: All systems reviewed & are unremarkable except as noted in Subjective Physical Exam Physical Exam: General- No acute distress Head- atraumatic Eyes- PERRL, EOMI, ENT- oropharynx clear Neck- supple, no JVD Lungs- No wheezing Heart- regular rhythm; no murmur Abdomen- normal bowel sounds, soft, nontender Extremities- no calf tenderness Neuro- alert, oriented x 3; PERRL, EOMI; no facial palsy; no dysarthria Skin- warm & dry Results & Data Results & Data ([facility]) Vital Signs (Past 12 Hours) Vital Signs Temp Pulse Pulse Resp BP Pulse Ox 07/15/20 18:46 36.8 C 72 19 110/54 L 91 07/15/20 15:59 72 07/15/20 14:54 36.9 C 69 20 99/45 L 91 07/15/20 11:16 36.5 C 63 22 118/67 90 07/15/20 08:00 54 L 07/15/20 07:49 36.4 C L 53 L 20 115/65 93
[2020-07-15] MEDS: SIMVASTATIN 40 MG TAB PO SCH (20:17)
[2020-07-15] MEDS: REMDESIVIR 100 MG in SODIUM CHLORIDE 0.9% 230 ML IV SCH (20:17)
[2020-07-16 06:42] LABS: D Dimer 4290 ug/L FEU (0-500)
[2020-07-16 06:43] LABS: Albumin Level 2.7 gm/dl (3.4-5.0); BUN Creatinine Ratio 33.8 (10-20); C Reactive Protein 10.5 mg/dl (0-0.29); Creatinine Clr Calc Pharmacy 53.9 ml/min; Est GFR (African American) 61.6; Est GFR (Non-African American) 53.1; Potassium 4.3 mmol/L (3.5-5.1)
[2020-07-16 06:49] LABS: Albumin Globulin Ratio 0.6 (0.9-2); Bilirubin,Total 0.4 mg/dl (0.2-1); Globulin 4.2 gm/dl (2.5-4.0); Total Protein 6.9 gm/dl (6.4-8.2)
--- NOTE | 2020-07-16 06:53 | Electrocardiogram Report ---
Test Reason : Blood Pressure : / mmHG Vent. Rate : 091 BPM Atrial Rate : 091 BPM P-R Int : 212 ms QRS Dur : 094 ms QT Int : 322 ms P-R-T Axes : 048 -52 027 degrees QTc Int : 396 ms Sinus rhythm with 1st degree A-V block Left axis deviation Incomplete right bundle branch block Possible Inferior infarct , age undetermined Possible Anterior infarct , age undetermined Abnormal ECG When compared with ECG of 12-JUN-2016 15:12, Borderline criteria for Anterior infarct are now Present Inferior infarct is now Present Confirmed by Wesley Seals ([id number]) on 07/16/2020 6:53:37 AM Referred By: REFERRED SELF Confirmed By:Wesley Seals
[2020-07-16] MEDS: dexAMETHasone 6 MG in SYRINGE 0 ML IV SCH (09:01)
[2020-07-16] MEDS: TAMSULOSIN HCL 0.4 MG CAP PO SCH (09:01)
[2020-07-16] MEDS: ASPIRIN 81 MG ECTAB PO SCH (09:01)
[2020-07-16] MEDS: lisinopril 10 MG TAB PO SCH (09:01)
[2020-07-16] MEDS: ENOXAPARIN INJ 40 MG/0.4 ML SYR SQ SCH ×2 (09:01→19:41)
[2020-07-16] MEDS: CHOLECALCIFEROL 1,000 UNITS 25 MCG TAB PO SCH (09:01)
[2020-07-16] MEDS ORDERED: FUROSEMIDE 20 MG in SYRINGE 0 ML IV ONE (09:45)
--- NOTE | 2020-07-16 18:55 | Hospitalist Progress Note ---
Date of Service July 16, 2020 Assessment & Plan (1) Pneumonia due to COVID-19 virus: (2) Hypoxia: Present on admission with cough, fever and SOB since Friday CXR showed moderate multifocal bilateral airspace opacities suggestive of an infectious process such as viral pneumonia Continue Dexamethasone 6mg IV daily and remdesivir daily Continue monitor LFT while on Remdesivir Inflammatory markers with ESR 58 , Ferritin 680 and C-rec 10.5 Since symptoms as been going for 1 week, not a candidate for convalescent plasma Continue oxygen supplement Continue encouraging pt to prone Continue monitor closely Elevated D-Dimer Mostly related to COVID 19 Ddimer increased to 4290 If no improvement in respiratory status, consider to CTA chest to r/o PE But we need to be very caution of the contrast since creatinine on admission was 1.47 We might get a doppler of LE (denies any swelling and tenderness in LE History of hypertension BP stable Continue his lisinopril History of hyperlipidemia Continue statin. History of benign prostatic hypertrophy Continue Flomax. Chronic kidney disease stage III Creatinine 1.26 Stable DVT px on Lovenox subq Code status Full code Admission and Anticipated Discharge Date Admission Date: July 14, 2020 Subjective Pt was seen and examined for follow of SOB due to COVID 19 Sitting in chair with no distress watching TV Pt said that his breathing a little better compare to yesterday he continues requiring oxygen supplement Denies any chest pain, palpitation, dizziness and fever Review of Systems Review of Systems: All systems reviewed & are unremarkable except as noted in Subjective Physical Exam Physical Exam: General- No acute distress Head- atraumatic Eyes- PERRL, EOMI, ENT- oropharynx clear Neck- supple, no JVD Lungs- No wheezing Heart- regular rhythm; no murmur Abdomen- normal bowel sounds, soft, nontender Extremities- no calf tenderness Neuro- alert, oriented x 3; PERRL, EOMI; no facial palsy; no dysarthria Skin- warm & dry Results & Data Results & Data ([facility]) Vital Signs (Past 12 Hours) Vital Signs Temp Pulse Resp BP Pulse Ox 07/16/20 18:48 36.7 C 71 21 115/43 L 92 07/16/20 15:49 36.5 C 71 18 105/54 L 90 07/16/20 12:13 89 L 07/16/20 11:19 36.6 C 65 20 117/63 07/16/20 10:43 36.7 C 60 20 101/50 L 94
[2020-07-16] MEDS: REMDESIVIR 100 MG in SODIUM CHLORIDE 0.9% 230 ML IV SCH (19:40)
[2020-07-16] MEDS: SIMVASTATIN 40 MG TAB PO SCH (19:42)
[2020-07-16] MEDS: SODIUM CHLORIDE 0.9% 10ML FLUSH IV SCH (19:43)
[2020-07-17] MEDS ORDERED: ALBUTEROL HFA 8 GM INHALER INH ONE (03:46)
[2020-07-17 05:10] LABS: Partial Thromboplastin Ratio 1.1; Partial Thromboplastin Time 28.8 Seconds (21.0-31.0)
[2020-07-17 05:19] LABS: D Dimer 2740 ug/L FEU (0-500)
[2020-07-17 05:20] LABS: Hematocrit (blood only) 36.2 % (42-52); Hemoglobin 12.9 g/dL (14.0-18.0); Mean Corpuscular Hemoglobin 30.7 pg (25-34); Mean Corpuscular Hgb Conc 35.6 g/dL (32-36); Mean Corpuscular Volume 86.2 fL (80-100); Mean Platelet Volume 10.7 fL (7.4-10.4); Platelet Count 390 K/uL (130-400); RDW Coefficient of Variation 14.3 % (11.5-14.5); RDW Standard Deviation 45.1 fL (36.4-46.3); White Blood Count 10.19 K/uL (4.8-10.8)
[2020-07-17 05:21] LABS: Basophils # (auto) 0.02 K/uL (0-0.2); Basophils % (auto) 0.2 %; Echinocytes 1+; Immature Granulocytes # (auto) 0.02 K/uL (0.00-0.02); Immature Granulocytes % (auto) 0.2 %; Lymphocytes # (auto) 0.69 K/uL (1.2-3.4); Lymphocytes % (auto) 6.8 %; Monocytes # (auto) 0.52 K/uL (0.11-0.59); Monocytes % (auto) 5.1 %; Neutrophils # (auto) 8.94 K/uL (1.4-6.5); Neutrophils % (auto) 87.7 %
[2020-07-17 05:22] LABS: Albumin Level 2.4 gm/dl (3.4-5.0); BUN Creatinine Ratio 37.8 (10-20); Calcium 8.2 mg/dl (8.5-10.1); Creatinine Clr Calc Pharmacy 57.1 ml/min; Est GFR (Non-African American) 56.9; Magnesium 2.4 mg/dl (1.8-2.4); Potassium 4.5 mmol/L (3.5-5.1)
[2020-07-17 05:28] LABS: Albumin Globulin Ratio 0.6 (0.9-2); Bilirubin,Total 0.4 mg/dl (0.2-1); C Reactive Protein 7.1 mg/dl (0-0.29); Ferritin 518.3 ng/ml (8-388); Globulin 4.2 gm/dl (2.5-4.0); Total Protein 6.6 gm/dl (6.4-8.2)
[2020-07-17] MEDS: dexAMETHasone 6 MG in SYRINGE 0 ML IV SCH (05:32)
--- NOTE | 2020-07-17 07:10 | XRay Report ---
XR chest 1V portable CLINICAL HISTORY: Hypoxia COMPARISON STUDY: 07/14/2020 FINDINGS: The heart remains enlarged. There is slight progression in bilateral multifocal airspace op acities suspicious for a multifocal pneumonia.[There are no large pleural effusions. IMPRESSION: Minimal progression in bilateral pulmonary airspace opacity suspicious for a multifocal p neumonia. ACT 112: Negative or not required by law. Electronically signed by: Farhat Manuel M.D. 07/17/2020 7:08 AM
[2020-07-17] MEDS: lisinopril 10 MG TAB PO SCH (08:32)
[2020-07-17] MEDS: guaiFENesin/DEXTROM SYRUP 200MG/20MG 10ML UDC PO PRN (08:32)
[2020-07-17] MEDS: TAMSULOSIN HCL 0.4 MG CAP PO SCH (08:33)
[2020-07-17] MEDS: CHOLECALCIFEROL 1,000 UNITS 25 MCG TAB PO SCH (08:33)
[2020-07-17] MEDS: ENOXAPARIN INJ 40 MG/0.4 ML SYR SQ SCH ×2 (08:33→20:26)
[2020-07-17] MEDS: ASPIRIN 81 MG ECTAB PO SCH (08:33)
[2020-07-17] MEDS: ALBUTEROL HFA 8 GM INHALER INH SCH ×4 (09:24→19:24)
--- NOTE | 2020-07-17 13:14 | Hospitalist Progress Note ---
Date of Service July 17, 2020 Assessment & Plan (1) Pneumonia due to COVID-19 virus: (2) Hypoxia: Present on admission with cough, fever and SOB since Friday CXR showed moderate multifocal bilateral airspace opacities suggestive of an infectious process such as viral pneumonia Continue Dexamethasone 6mg IV daily and remdesivir daily Continue monitor LFT while on Remdesivir Inflammatory markers with ESR 58 , Ferritin 680 and C-rec 10.5 Since symptoms as been going for 1 week, not a candidate for convalescent plasma Currently remains on high flow nasal cannula. D-dimer of 2390 on admission>>> 4290>>> 2740. Likely in the setting of COVID-19. Given increasing oxygen requirement, pulmonary medicine has been consulted. Continue with Lovenox twice daily. History of hypertension BP stable Continue his lisinopril History of hyperlipidemia Continue statin. History of benign prostatic hypertrophy Continue Flomax. Chronic kidney disease stage III Creatinine 1.19 Stable DVT px on Lovenox subq Code status Full code Admission and Anticipated Discharge Date Admission Date: July 14, 2020 Subjective Patient reports he feels better since he got transitioned to high flow nasal cannula this morning. He does have minimal productive cough. He denies any chest pain. Denies any headache or dizziness. Reports appetite is okay. Denies any diarrhea. Mild abdominal discomfort. Rest of the review of system is negative. Review of Systems Review of Systems: All systems reviewed & are unremarkable except as noted in HPI & below Physical Exam Physical Exam: General: A&Ox3 HENT: NCAT, MMM, EOMI Eyes: PERRLA Neck: Supple, normal range of motion CVS: normal rate and rhythm Resp: b/l coarse breath sounds Abdomen: Soft, ND/NT, +BS Extremities: No c/c/e Neuro: face symmetric, no focal deficit Skin: warm and dry, no rashes/lesions/errythema MSK: normal ROM, no joint swelling/erythema Results & Data Results & Data ([facility]) Vital Signs (Past 12 Hours) Vital Signs Temp Pulse Pulse Resp BP Pulse Ox 07/17/20 11:51 92 07/17/20 11:11 68 22 90 07/17/20 08:00 36.8 C 72 84 24 125/73 88 L 07/17/20 07:15 88 26 H 89 L 07/17/20 04:58 66 16 93 07/17/20 03:00 36.4 C L 63 22 121/60 88 L
--- NOTE | 2020-07-17 13:45 | Electrocardiogram Report ---
Test Reason : Blood Pressure : / mmHG Vent. 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 rate has decreased BY 35 BPM Borderline criteria for Anterior infarct are no longer Present Confirmed by Indra Bar ([id number]) on 07/17/2020 1:45:30 PM Referred By: REFERRED SELF Confirmed By:Indra Bar
--- NOTE | 2020-07-17 15:46 | Pulmonary Consultation ---
Date of Consultation July 17, 2020 Assessment & Plan (1) Pneumonia due to COVID-19 virus: 79-year-old male with a past medical history as noted above presenting to the hospital due to COVID-19 illness. Acute hypoxic respiratory failure: Secondary to COVID-19. Inflammatory marke rs are trending downwards. We will hold on Tocilizumab at this time. Continue with IV Decadron. Volume status appears euvolemic at this time. Chest x-ray noted from this morning demonstrates bilateral airspace opacities. I strongly encouraged him to self prone. Upon self proning with my assistance, the patient's saturations improved to 97% on 35 L and 70% FiO2. We were able to wean him down to 60% FiO2 and his saturations continued to maintain in the mid 90s. Nursing and respiratory therapy was updated. Patient was instructed to continue self prone for 20 to 30 minutes at a time as much as he can during the day and night. Pulmonary will continue to follow along with you. Thank you for the consult. (2) Hypoxia: (3) Breath shortness: History of Present Illness Reason for Consultation: COVID-19 pneumonia Attending Physician: Marian Caceres MD History of Present Illness 79-year-old male with a past medical history of hypertension hyperlipidemia who presented to the hospital on 07/14/2020 due to increasing shortness of breath and hypoxia. Patient notes that he has been feeling weak and has a dry cough. He does feel mildly improved today. His appetite has been poor due to the loss of taste and smell. He denies any fevers or chills today. He feels that his shortness of breath has improved since being placed on high flow nasal cannula. He is currently receiving Decadron 6 mg IV daily and remdesivir daily. His CRP has trended down from 15-7.0. Pulmonary was consulted due to increasing oxygen demands. Allergies Allergy/AdvReac Type Severity Reaction Status Date / Time pollen extracts Allergy Intermediate "Environmental" Verified 07/14/20 21:57 -- runny nose, sneezing Home Medications Medication Instructions Recorded Confirmed Type cholecalciferol (vitamin D3) 25 1,000 unit PO DAILY 11/22/19 07/14/20 History mcg (1,000 unit) tablet coQ10 (ubiquinol) 100 mg capsule 100 mg PO DAILY 11/22/19 07/14/20 History lisinopril 10 mg tablet 10 mg PO DAILY 11/22/19 07/14/20 History simvastatin 40 mg tablet 40 mg PO HS 11/22/19 07/14/20 History tadalafil 20 mg tablet 10 - 20 mg PO DIRECTED PRN 11/22/19 07/14/20 History aspirin 81 mg PO DAILY 07/14/20 07/14/20 History dextromethorphan-guaifenesin 10 ml PO DIRECTED PRN 07/14/20 07/14/20 History [Delsym Cough-Chest Congest DM] tamsulosin 0.8 mg PO DAILY 07/14/20 07/14/20 History Patient History Medical History Hematuria No pertinent past medical history Prostate cancer screening encounter, options and risks discussed Surgical History No pertinent past surgical history Family History Brother Diabetes Social History Smoking Status: Former smoker Tobacco Type: Cigarettes Hx Alcohol Use: No Hx Substance Use: No Preferred Language: Slovenian Communication Ability: Effective 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 High flow nasal cannula in place. Neck: normal visual inspection Respiratory: Mild tachypnea. No use of accessory muscles at this time. Diminished lung sounds. No wheezing. Cardiovascular: RRR, no murmur, no edema Gastrointestinal (Abdomen): normal bowel sounds, soft, nontender, no hepatosplenomegaly Musculoskeletal: no cyanosis or clubbing, extremities motor strength 5/5 Neurologic: PERRL, EOMI, accommodation nl, no face palsy, no dysarthria Psychiatric: A+Ox3, euthymic affect Results & Data Results & Data ([facility]) Vital Signs (Past 12 Hours) Vital Signs Temp Pulse Pulse Resp BP Pulse Ox 07/17/20 15:04 78 18 95 07/17/20 11:51 92 07/17/20 11:11 68 22 90 07/17/20 08:00 98.2 F 72 84 24 125/73 88 L 07/17/20 07:15 88 26 H 89 L 07/17/20 04:58 66 16 93 I reviewed the vital signs, labs and imaging PG Care Time/CCT Total # of Minutes Spent Total Time Spent with Patient: Total time spent is greater than 50% in coordination of care (as documented) at patient's floor/unit and/or counseling patient: Coding Level of Care Code 42989 Initial Inpt Care Lvl 2 Diagnoses Pneumonia due to COVID-19 virus U07.1; J12.82 Hypoxia R09.02 Breath shortness R06.02
[2020-07-17] MEDS: REMDESIVIR 100 MG in SODIUM CHLORIDE 0.9% 230 ML IV SCH (20:25)
[2020-07-17] MEDS: SODIUM CHLORIDE 0.9% 10ML FLUSH IV SCH (20:26)
[2020-07-17] MEDS: SIMVASTATIN 40 MG TAB PO SCH (20:27)
[2020-07-17] MEDS ORDERED: CALCIUM CARBONATE 500 MG CHEWABLE TAB PO STA (20:53)
[2020-07-17] MEDS ORDERED: POLYETHYLENE (MIRALAX) 17 GM PACK PO PRN (20:53)
[2020-07-17] MEDS: DOCUSATE SODIUM/SENNA 50/8.6MG TAB PO SCH (21:54)
[2020-07-18] MEDS: DOCUSATE SODIUM/SENNA 50/8.6MG TAB PO SCH ×2 (05:38→08:51)
[2020-07-18] MEDS: ALBUTEROL HFA 8 GM INHALER INH SCH ×4 (07:03→19:59)
[2020-07-18 07:06] LABS: Est GFR (African American) 68.1; Est GFR (Non-African American) 58.7
[2020-07-18] MEDS: dexAMETHasone 6 MG in SYRINGE 0 ML IV SCH (08:52)
[2020-07-18] MEDS: guaiFENesin/DEXTROM SYRUP 200MG/20MG 10ML UDC PO PRN (08:52)
[2020-07-18] MEDS: ASPIRIN 81 MG ECTAB PO SCH (08:53)
[2020-07-18] MEDS: TAMSULOSIN HCL 0.4 MG CAP PO SCH (08:53)
[2020-07-18] MEDS: lisinopril 10 MG TAB PO SCH (08:53)
[2020-07-18] MEDS: CHOLECALCIFEROL 1,000 UNITS 25 MCG TAB PO SCH (08:53)
[2020-07-18] MEDS: ENOXAPARIN INJ 40 MG/0.4 ML SYR SQ SCH ×2 (08:54→20:19)
--- NOTE | 2020-07-18 11:45 | Hospitalist Progress Note ---
Date of Service July 18, 2020 Assessment & Plan (1) Pneumonia due to COVID-19 virus: (2) Hypoxia: Present on admission with cough, fever and SOB since Friday CXR showed moderate multifocal bilateral airspace opacities suggestive of an infectious process such as viral pneumonia Continue Dexamethasone 6mg IV daily and remdesivir daily Continue monitor LFT while on Remdesivir Inflammatory markers with ESR 58 , Ferritin 680 and C-rec 10.5 Since symptoms as been going for 1 week, not a candidate for convalescent plasma Currently remains on high flow nasal cannula. D-dimer of 2390 on admission>>> 4290>>> 2740. Likely in the setting of COVID-19. Appreciate pulmonary medicine input. Continue with Lovenox twice daily. Proning encouraged. History of hypertension BP stable Continue his lisinopril History of hyperlipidemia Continue statin. History of benign prostatic hypertrophy Continue Flomax. Chronic kidney disease stage III Creatinine 1.16 Stable DVT px on Lovenox subq Code status Full code Admission and Anticipated Discharge Date Admission Date: July 14, 2020 Subjective Patient reports today is the best he has felt in days. Ports shortness of breath is much better. However patient remains on high flow nasal cannula. Now he does have productive cough. Rest of the review of system is negative. Appetite has been fine. Review of Systems Review of Systems: All systems reviewed & are unremarkable except as noted in HPI & below Physical Exam Physical Exam: General: A&Ox3 HENT: NCAT, MMM, EOMI Eyes: PERRLA Neck: Supple, normal range of motion CVS: normal rate and rhythm Resp: b/l coarse breath sounds Abdomen: Soft, ND/NT, +BS Extremities: No c/c/e Neuro: face symmetric, no focal deficit Skin: warm and dry, no rashes/lesions/errythema MSK: normal ROM, no joint swelling/erythema Results & Data Results & Data ([facility]) Vital Signs (Past 12 Hours) Vital Signs Temp Pulse Resp BP Pulse Ox 07/18/20 10:50 99 H 22 91 07/18/20 07:22 37.5 C 90 24 137/56 L 92 07/18/20 07:03 81 20 92 07/18/20 02:48 61 18 91 07/18/20 02:30 36.3 C L 71 22 102/66 90 07/17/20 23:54 36.9 C 55 L 20 114/54 L 94
[2020-07-18 12:33] LABS: D Dimer 6520 ug/L FEU (0-500)
--- NOTE | 2020-07-18 18:25 | Pulmonology Progress Note ---
Date of Service July 18, 2020 Assessment & Plan (1) Pneumonia due to COVID-19 virus: 79-year-old male with a past medical history as noted above presenting to the hospital due to COVID-19 illness. Acute hypoxic respiratory failure: Secondary to COVID-19. Inflammatory markers are trending downwards. However, D-dimer has gone up. D-dimer is a nonspecific value. Continue current dose of Lovenox. We will hold on Tocilizumab at this time. Continue with IV Decadron. Continue with IV Decadron. I strongly encouraged him to self prone and use the incentive spirometer. Nursing and respiratory therapy was updated. He does have mild lower extremity edema. He is positive approximately 760 mL. Can consider IV Lasix if respiratory status continues to worsen. Prognosis remains guarded. I had a long discussion with the patient regarding CODE STATUS. He indicates that he would not want to be on a ventilator, but he wants to think about this decision further. He understands that he is currently listed as a full code. Pulmonary will continue to follow along with you. Thank you for the consult. (2) Hypoxia: (3) Breath shortness: (4) Lower extremity edema: Admission and Anticipated Discharge Date Admission Date: July 14, 2020 Subjective Patient seen and examined this afternoon. He is sitting up in a chair. He says that his breathing feels fine and he would like to walk around the room, but acknowledges that he cannot as he is currently attached to the high flow nasal cannula. He feels that his appetite is improved today. He has not been proning. He has been using his incentive spirometry very rarely. He denies any chest pain. He does have a mildly productive cough. No nausea or vomiting. Otherwise no significant acute events today. He has been requiring escalating doses of high flow nasal cannula and is currently on 90% FiO2 at 40 L/min. Review of Systems Review of Systems: All systems reviewed & are unremarkable except as noted in HPI & below Physical Exam Constitutional: Elderly-appearing male in mild distress. High flow nasal cannula in place. Neck: normal visual inspection Respiratory: Mild tachypnea. No use of accessory muscles at this time. Diminished lung sounds. No wheezing. Cardiovascular: Rate/Rhythm: regular rate and regular rhythm Heart Sounds: normal S1 and normal S2 Extremities: + edema Gastrointestinal (Abdomen): normal bowel sounds, soft, nontender, no hepatosplenomegaly Musculoskeletal: no cyanosis or clubbing, extremities motor strength 5/5 Neurologic: PERRL, EOMI, accommodation nl, no face palsy, no dysarthria Psychiatric: A+Ox3, euthymic affect Results & Data Results & Data ([facility]) Vital Signs (Past 12 Hours) Vital Signs Temp Pulse Pulse Resp BP Pulse Ox 07/18/20 17:11 74 22 91 07/18/20 16:00 80 07/18/20 15:42 97.5 F L 74 19 93/50 L 93 07/18/20 15:01 80 07/18/20 14:43 76 20 91 07/18/20 11:48 98.2 F 100 H 22 113/65 89 L 07/18/20 10:50 99 H 22 91 07/18/20 07:22 99.5 F 90 24 137/56 L 92 07/18/20 07:03 81 20 92 vital signs, labs and imaging reviewed PG Care Time/CCT Total # of Minutes Spent Total Time Spent with Patient: Total time spent is greater than 50% in coordination of care (as documented) at patient's floor/unit and/or counseling patient: Coding Level of Care Code 77514 Subseq Hosp Care Lvl 3 Diagnoses Pneumonia due to COVID-19 virus U07.1; J12.82 Hypoxia R09.02 Breath shortness R06.02 Lower extremity edema R60.0
[2020-07-18] MEDS: REMDESIVIR 100 MG in SODIUM CHLORIDE 0.9% 230 ML IV SCH (20:18)
[2020-07-18] MEDS: SODIUM CHLORIDE 0.9% 10ML FLUSH IV SCH (20:19)
[2020-07-18] MEDS: SIMVASTATIN 40 MG TAB PO SCH (20:20)
[2020-07-19] MEDS ORDERED: LEVALBUTEROL TARTRATE 15 GM HFA.AER.AD INH PRN (07:00)
[2020-07-19] MEDS ORDERED: ALBUMIN 25% 12.5 GM/50 ML VIAL IV ONE (07:01)
[2020-07-19 07:06] LABS: Creatinine Clr Calc Pharmacy 64.8 ml/min; Est GFR (African American) 77.7
--- NOTE | 2020-07-19 08:07 | XRay Report ---
XR chest 1V portable CLINICAL HISTORY: Hypoxia COMPARISON STUDY: 07/17/2020 FINDINGS: The cardiac and mediastinal contours remain able. There are persistent bilateral pulmonary airspace opacities suspicious for multifocal pneumonia. There is no overt failure. There are no signi ficant pleural effusions.[ IMPRESSION: Persistent multifocal airspace opacity suspicious for a multifocal pneumonia ACT 112: Negative or not required by law. Electronically signed by: Farhat Manuel M.D. 07/19/2020 8:05 AM
[2020-07-19] MEDS ORDERED: FUROSEMIDE 40 MG in SYRINGE 0 ML IV STA (08:26)
[2020-07-19 08:33] LABS: Allen Test Pos (Pos); HCO3 ABG 21 mmol/L (19-24); PCO2 ABG 29 mmHg (35-46); PO2 ABG 63 mmHg (80-95); pH ABG 7.48 (7.35-7.45)
[2020-07-19 08:34] LABS: Basophils # (auto) 0.03 K/uL (0-0.2); Basophils % (auto) 0.3 %; Eosinophils # (auto) 0.14 K/uL (0-0.5); Eosinophils % (auto) 1.2 %; Hematocrit (blood only) 36.3 % (42-52); Hemoglobin 12.7 g/dL (14.0-18.0); Immature Granulocytes # (auto) 0.15 K/uL (0.00-0.02); Immature Granulocytes % (auto) 1.3 %; Lymphocytes # (auto) 0.63 K/uL (1.2-3.4); Lymphocytes % (auto) 5.6 %; Mean Corpuscular Volume 85.6 fL (80-100); Mean Platelet Volume 9.8 fL (7.4-10.4); Monocytes # (auto) 0.39 K/uL (0.11-0.59); Monocytes % (auto) 3.5 %; Neutrophils # (auto) 9.91 K/uL (1.4-6.5); Neutrophils % (auto) 88.1 %; Platelet Count 411 K/uL (130-400); RDW Coefficient of Variation 14.4 % (11.5-14.5); RDW Standard Deviation 45.2 fL (36.4-46.3); Red Blood Count 4.24 M/uL (4.7-6.1); White Blood Count 11.25 K/uL (4.8-10.8)
[2020-07-19 08:58] LABS: BUN Creatinine Ratio 29.4 (10-20); Calcium 8.9 mg/dl (8.5-10.1); Creatinine Clr Calc Pharmacy 62.4 ml/min; Est GFR (African American) 74.2; Magnesium 1.9 mg/dl (1.8-2.4); Potassium 4.1 mmol/L (3.5-5.1)
[2020-07-19] MEDS ORDERED: dexAMETHasone 6 MG in SYRINGE 0 ML IV SCH (09:00)
[2020-07-19 09:10] LABS: Albumin Level 2.6 gm/dl (3.4-5.0); BUN Creatinine Ratio 31.1 (10-20); C Reactive Protein 9.29 mg/dl (0-0.29); Calcium 8.9 mg/dl (8.5-10.1); Creatinine Clr Calc Pharmacy 66.7 ml/min; Est GFR (African American) 80.5; Est GFR (Non-African American) 69.4; Potassium 4.1 mmol/L (3.5-5.1)
[2020-07-19 09:14] LABS: Albumin Globulin Ratio 0.7 (0.9-2); Bilirubin,Total 0.9 mg/dl (0.2-1); Globulin 3.8 gm/dl (2.5-4.0); Total Protein 6.4 gm/dl (6.4-8.2)
--- NOTE | 2020-07-19 09:16 | Critical Care Progress Note ---
Date of Service July 19, 2020 Assessment & Plan (1) Pneumonia due to COVID-19 virus: 79-year-old male with a past medical history of hypertension, hyperlipidemia and BPH presenting to the hospital due to COVID-19 illness. Acute hypoxic respiratory failure: Secondary to COVID-19. His CRP is starting to go up again to 9.29 mg/deciliter. I am going to increase his Decadron to 20 mg daily for 5 days per the DEXA ARDS trial results. We will need to keep a close eye on his glucose. I had a lengthy discussion with regards to his CODE STATUS. He clearly indicated to me that he would like to be a DNR/DNI in the event that his condition continued to deteriorate. I also called the patient's family and had a lengthy discussion with the patient's and his 2 sons. His family was hesitant about him being a DNR/DNI. One of his sons was asking whether the patient can be transferred to [facility]. I indicated that at this time it is unlikely that a different facility would do anything different from what we are doing. I encouraged the family to have a zoom session via iPad with the patient and discuss his wishes. I am also going to consult palliative care for their assistance in this matter. 40 mg of IV Lasix has been given this morning. Prognosis remains guarded. Patient status was changed to ICU. We will continue to monitor the situation closely. CRITICAL CARE TIME - I have personally spent 64 minutes of critical care time in the direct management of this patient. This is a life/limb threatening event. This includes time spent evaluating patient, direct bedside care, chart review, placing orders, interpretation of diagnostic studies, discussion with consultants, patient, and family members, as well as other required patient management activities. This time is exclusive of all separately billable procedures, and teaching time and separate from and in addition to any other critical care service time. (2) Hypoxia: (3) Breath shortness: (4) Lower extremity edema: Admission and Anticipated Discharge Date Admission Date: July 14, 2020 Subjective Patient seen and examined this morning. Patient with worsening tachypnea with respiratory rates in the 20s. He is also tachycardic with heart rates in the low one teens. He denies any chest pain today. He does have ongoing dry cough. He has been requiring escalating amounts of high flow oxygen via nasal cannula. He is currently on 4 L of oxygen and 100% FiO2 saturating in the low 90s. He has been having low-grade temperatures overnight. Review of Systems Review of Systems: All systems reviewed & are unremarkable except as noted in HPI & below Physical Exam Constitutional: Elderly-appearing male in mild distress. High flow nasal cannula in place. Neck: normal visual inspection Respiratory: Mild tachypnea. No use of accessory muscles at this time. Diminished lung sounds. No wheezing. Cardiovascular: Rate/Rhythm: regular rate and regular rhythm Heart Sounds: normal S1 and normal S2 Extremities: + edema Gastrointestinal (Abdomen): normal bowel sounds, soft, nontender, no hepatosplenomegaly Musculoskeletal: no cyanosis or clubbing, extremities motor strength 5/5 Neurologic: PERRL, EOMI, accommodation nl, no face palsy, no dysarthria Psychiatric: A+Ox3, euthymic affect Results & Data Results & Data ([facility] [place]) Vital Signs (Past 12 Hours) Vital Signs Temp Pulse Pulse Resp BP Pulse Ox 07/19/20 08:10 107 H 24 93 07/19/20 08:08 107 H 24 93 07/19/20 07:47 99.9 F H 104 H 24 121/70 94 07/19/20 07:44 142 H 07/19/20 07:42 90 07/19/20 07:27 99.1 F 99 H 24 136/74 92 07/19/20 03:34 93 H 18 92 07/19/20 03:23 99.0 F 85 26 H 117/54 L 92 07/18/20 23:00 79 07/18/20 22:29 98.2 F 85 22 122/73 90 07/18/20 22:05 79 20 91 I reviewed the vital signs, labs and imaging. Chest x-ray imaging similar to prior. Continues with multifocal infiltrates. Coding Level of Care Code Critical Care 1st 30-74 mins Diagnoses Pneumonia due to COVID-19 virus U07.1; J12.82 Hypoxia R09.02 Breath shortness R06.02 Lower extremity edema R60.0 Time Spent (min) 64
[2020-07-19] MEDS: ENOXAPARIN INJ 40 MG/0.4 ML SYR SQ SCH ×2 (10:01→20:33)
[2020-07-19] MEDS ORDERED: FUROSEMIDE 40 MG/4 ML VIAL IV ONE (10:12)
[2020-07-19] MEDS ORDERED: dexAMETHasone 14 MG in DEXTROSE 5% 25 ML IV ONE (11:00)
--- NOTE | 2020-07-19 15:09 | Palliative Care Consultation ---
Date of Consultation July 19, 2020 Assessment & Plan (1) Palliative care encounter: I spoke with Giovanni at bedside as well as with his family via zoom with the RN present and later by phone. Giovanni is alert and absolutely capable of making decisions. He has consistently said that he would not want intubation or resuscitation if his condition were to decline. He asked me what it would be like on the ventilator and what would happen if he didn't improve to be taken off the vent. We discussed tracheostomy, PEG tube placement and possible LTAC as worst case scenario on vent. We also discussed his family having to make a decision to withdraw vent support if he did not do well. He does not want either of these options. He talks openly about wanting to peacefully and asked me what his might be like. He is a retired electrical systems design engineer and values time with is family more than anything else. He would not consider long-term vent support to be quality of life. His family, his and two sons, are understandably upset and unable to visit due to their own covid infections. They have heard him say that he would not want intubation. They have designated Giovanni's son, also named Giovanni, to be the spokesperson for the family. I spoke with Giovanni on the phone. He tells me that the family wants to respect Giovanni's wishes and would not want intubation. Giovanni's other son, Helene, is quite vocal about wanting to override his father's decision, however, Giovanni Clarke confirms that family massiel montoya is not to proceed with intubation if indicated. Code status has been changed to reflect the patient's wishes. (2) Pneumonia due to COVID-19 virus: History of Present Illness Reason for Consultation: goals of care Requesting Physician: Dr. Dowd Attending Physician: Cleo Valerio MD History of Present Illness 79 yo gentleman who was admitted with acute hypoxic respiratory failure related to covid pneumonia. He has multiple family members who also have covid, though they are recovering at home. He has been treated with decadron and remdesivir but has had progressive increase in O2 requirement. He has also had tachypnea and tachycardia. He is currently on high flow O2 and desaturates into the 80s with conversation. He reports feeling short of breath but feels well otherwise. We have been consulted to assist with goals of care discussion. Allergies Allergy/AdvReac Type Severity Reaction Status Date / Time pollen extracts Allergy Intermediate "Environmental" Verified 07/14/20 21:57 -- runny nose, sneezing Home Medications Medication Instructions Recorded Confirmed Type cholecalciferol (vitamin D3) 25 1,000 unit PO DAILY 11/22/19 07/14/20 History mcg (1,000 unit) tablet coQ10 (ubiquinol) 100 mg capsule 100 mg PO DAILY 11/22/19 07/14/20 History lisinopril 10 mg tablet 10 mg PO DAILY 11/22/19 07/14/20 History simvastatin 40 mg tablet 40 mg PO HS 11/22/19 07/14/20 History tadalafil 20 mg tablet 10 - 20 mg PO DIRECTED PRN 11/22/19 07/14/20 History aspirin 81 mg PO DAILY 07/14/20 07/14/20 History dextromethorphan-guaifenesin 10 ml PO DIRECTED PRN 07/14/20 07/14/20 History [Delsym Cough-Chest Congest DM] tamsulosin 0.8 mg PO DAILY 07/14/20 07/14/20 History Patient History Medical History Hematuria Lower extremity edema No pertinent past medical history Prostate cancer screening encounter, options and risks discussed Surgical History No pertinent past surgical history Family History Brother Diabetes Social History Smoking Status: Former smoker Tobacco Type: Cigarettes Hx Alcohol Use: No Hx Substance Use: No Preferred Language: Montenegrin Communication Ability: Effective Personal Lines Agent Required: No Beliefs That Will Affect Care: None marital status: Current Living Situation: Spouse and Family Feels Safe at Home: Yes Safety Concerns: Feels Safe At This Time Assistive Devices: Glasses and Oxygen - Continuous Review of Systems Review of Systems: [place] Symptom Assessment Scale Pain 0/3 Dyspnea 2/3 Anxiety 2/3 Fatigue 2/3 Nausea 0/3 Palliative Performance Score 30% Physical Exam Constitutional: + ill appearing ENMT: Mouth: oral mucous membranes not dry clear rhinorrhea Respiratory: + labored breathing and + uses accessory muscles on 40% FiO2, high flow Cardiovascular: Rate/Rhythm: regular rhythm Gastrointestinal (Abdomen): Inspection/Auscultation: abdomen not distended Musculoskeletal: Extremities: extremities normal to inspection Neurologic: awake; not confused Results & Data ([facility]) Vital Signs (Past 12 Hours) Vital Signs Temp Pulse Pulse Resp BP BP Pulse Ox 07/19/20 11:29 102 H 22 92 07/19/20 10:00 95 H 27 H 134/72 94 07/19/20 09:45 106 H 22 140/73 90 07/19/20 09:00 124 H 34 H 90 07/19/20 08:10 107 H 24 93 07/19/20 08:08 107 H 24 93 07/19/20 07:47 99.9 F H 104 H 24 121/70 94 07/19/20 07:44 142 H 07/19/20 07:42 90 07/19/20 07:27 99.1 F 99 H 24 136/74 92 07/19/20 03:34 93 H 18 92 07/19/20 03:23 99.0 F 85 26 H 117/54 L 92 PG Care Time/CCT Total # of Minutes Spent Total Time Spent with Patient: Total time spent is greater than 50% in coordination of care (as documented) at patient's floor/unit and/or counseling patient: total time spent 80 minutes with more than 50% of time spent on patient support, family support, goals of care, coordination of care. Coding Level of Care Code 38814 Inpt Consult Level 5 Diagnoses Palliative care encounter Z51.5 Pneumonia due to COVID-19 virus U07.1; J12.82
--- NOTE | 2020-07-19 16:43 | Hospitalist Progress Note ---
Date of Service July 19, 2020 Assessment & Plan (1) Pneumonia due to COVID-19 virus: (2) Hypoxia: Acute hypoxemic respiratory failure secondary to COVID-19 pneumonia Present on admission with cough, fever and SOB CXR showed moderate multifocal bilateral airspace opacities suggestive of an infectious process such as viral pneumonia Continue Dexamethasone 6mg IV daily Patient's respiratory status continues to decline, currently on high flow oxygen, transfer to ICU pulmonary critical care input appreciated, After long discussion with patient and patient family patient is DNR/DNI Observe in ICU status overnight, Process remains guarded History of hypertension Hypotensive episode noted, DC lisinopril Patient was given IV Lasix earlier for pulmonary congestion secondary to COVID- 19 pneumonia History of hyperlipidemia Continue statin. History of benign prostatic hypertrophy Hold Flomax in the setting of hypotension Chronic kidney disease stage III Creatinine 1.16 Stable DVT px on Lovenox subq CODE STATUS DNR/DNI Overall prognosis remains guarded Admission and Anticipated Discharge Date Admission Date: July 14, 2020 Subjective Pt was seen and examined for follow-up of for acute hypoxemic respiratory failure secondary to COVID-19 pneumonia: Patient remains on high flow oxygen, Reports of feeling of shortness of breath, does not want BiPAP or CPAP, makes him very claustrophobic Able to speak in complete sentences, febrile episode noted, borderline hypotensive Overall prognosis remains guarded Review of Systems Review of Systems: All systems reviewed & are unremarkable except as noted in Subjective Physical Exam Physical Exam: Physical exam: General: Ill appearing elderly male HEENT: PERRLA, EOMI, Heart: Regular S1-S2, Lungs: Very diminished breath sound with coarse Rales Abdomen: Soft nontender, no organomegaly Extremity: No cyanosis, no deformity, Neuro: No focal neurological deficit normal speech, n Psych: Alert awake oriented x3, normal affect Results & Data Results & Data ([facility]) Vital Signs (Past 12 Hours) Vital Signs Temp Pulse Pulse Resp BP BP Pulse Ox 07/19/20 16:33 87 07/19/20 15:30 71 20 89 L 07/19/20 15:00 74 33 H 92/57 L 93 07/19/20 14:00 88 29 H 128/65 87 L 07/19/20 13:00 96 H 27 H 114/49 L 96 07/19/20 12:00 98 H 23 98/59 L 96 07/19/20 11:29 102 H 22 92 07/19/20 11:00 109 H 31 H 137/77 93 07/19/20 10:00 95 H 27 H 134/72 94 07/19/20 09:45 106 H 22 140/73 90 07/19/20 09:00 124 H 34 H 90 07/19/20 08:10 107 H 24 93 07/19/20 08:08 107 H 24 93 07/19/20 07:47 37.7 C H 104 H 24 121/70 94 07/19/20 07:44 142 H 07/19/20 07:42 90 07/19/20 07:27 37.3 C 99 H 24 136/74 92
[2020-07-19] MEDS: SIMVASTATIN 40 MG TAB PO SCH (20:32)
[2020-07-20] MEDS: ENOXAPARIN INJ 40 MG/0.4 ML SYR SQ SCH ×2 (08:15→21:04)
[2020-07-20] MEDS: DOCUSATE SODIUM/SENNA 50/8.6MG TAB PO SCH (08:15)
[2020-07-20] MEDS: dexAMETHasone 20 MG in DEXTROSE 5% 25 ML IV SCH (08:16)
[2020-07-20] MEDS: ASPIRIN 81 MG ECTAB PO SCH (08:16)
[2020-07-20] MEDS: CHOLECALCIFEROL 1,000 UNITS 25 MCG TAB PO SCH (08:16)
[2020-07-20 08:56] LABS: Basophils # (auto) 0.02 K/uL (0-0.2); Basophils % (auto) 0.2 %; Eosinophils # (auto) 0.01 K/uL (0-0.5); Eosinophils % (auto) 0.1 %; Immature Granulocytes # (auto) 0.18 K/uL (0.00-0.02); Immature Granulocytes % (auto) 1.4 %; Lymphocytes # (auto) 0.38 K/uL (1.2-3.4); Mean Corpuscular Hemoglobin 30.4 pg (25-34); Mean Corpuscular Hgb Conc 34.9 g/dL (32-36); Mean Platelet Volume 10.3 fL (7.4-10.4); Monocytes # (auto) 0.42 K/uL (0.11-0.59); Monocytes % (auto) 3.3 %; Neutrophils # (auto) 11.71 K/uL (1.4-6.5); Platelet Count 447 K/uL (130-400); RDW Coefficient of Variation 14.4 % (11.5-14.5); RDW Standard Deviation 45.7 fL (36.4-46.3); Red Blood Count 4.94 M/uL (4.7-6.1); White Blood Count 12.72 K/uL (4.8-10.8)
[2020-07-20] MEDS ORDERED: dexAMETHasone 20 MG in SYRINGE 0 ML IV SCH (09:00)
[2020-07-20 09:21] LABS: BUN Creatinine Ratio 33.3 (10-20); Calcium 9.1 mg/dl (8.5-10.1); Creatinine Clr Calc Pharmacy 53.4 ml/min; Est GFR (African American) 61.6; Est GFR (Non-African American) 53.1; Magnesium 2.3 mg/dl (1.8-2.4); Phosphorus 3.5 mg/dl (2.5-4.9); Potassium 4.4 mmol/L (3.5-5.1)
--- NOTE | 2020-07-20 13:51 | Palliative Care Progress Note ---
Date of Service July 20, 2020 Assessment & Plan (1) Palliative care encounter: Giovanni is more hopeful today but realizes that he is not out of the russell. He is grateful for his care and continues to take one day at a time. He has been making some arrangements for his family in the event that he does not survive. I spoke with his family to let them know that he was very relieved that they would follow through with his wishes. (2) Pneumonia due to COVID-19 virus: Admission and Anticipated Discharge Date Admission Date: July 14, 2020 Subjective Reports feeling less short of breath today. Had some cheerios for breakfast. Sitting in chair at bedside. He remains on high flow O2 40L at 75%. Review of Systems Review of Systems: [place] Symptom Assessment Scale Pain 0/3 Dyspnea 1/3 Anxiety 1/3 Fatigue 2/3 Nausea 0/3 Drowsiness 0/3 Palliative Performance Score 40% Physical Exam Constitutional: + ill appearing; no acute distress Respiratory: + uses accessory muscles Cardiovascular: Rate/Rhythm: regular rate and regular rhythm Gastrointestinal (Abdomen): Inspection/Auscultation: abdomen not distended Neurologic: awake; not confused Results & Data ([facility]) Vital Signs (Past 12 Hours) Vital Signs Temp Pulse Pulse Resp BP Pulse Ox 07/20/20 11:30 79 20 93 07/20/20 11:00 90 94/58 L 92 07/20/20 10:00 95 H 119/69 100 07/20/20 09:00 96 H 97 07/20/20 08:00 97 H 71 L 07/20/20 07:44 98.4 F 07/20/20 07:39 75 110/57 L 89 L 07/20/20 07:12 72 24 93 07/20/20 06:01 63 90 07/20/20 06:00 61 20 91/53 L 90 07/20/20 05:01 63 91 07/20/20 05:00 64 96/55 L 87 L 07/20/20 04:02 98.2 F 07/20/20 04:01 60 94 07/20/20 04:00 61 90/50 L 91 07/20/20 03:55 60 20 93 07/20/20 03:17 68 104/48 L 89 L 07/20/20 03:16 65 90/71 L 86 L 07/20/20 03:02 65 85 L 07/20/20 03:00 65 85 L 07/20/20 02:00 67 101/50 L 95 PG Care Time/CCT Total # of Minutes Spent Total Time Spent with Patient: Total time spent is greater than 50% in coordination of care (as documented) at patient's floor/unit and/or counseling patient: total time spent 35 minutes with more than 50% of time spent on patient support, family update and support. Coding Level of Care Code 45546 Subseq Hosp Care Lvl 3 Diagnoses Palliative care encounter Z51.5 Pneumonia due to COVID-19 virus U07.1; J12.82
--- NOTE | 2020-07-20 15:05 | Critical Care Progress Note ---
Date of Service July 20, 2020 Assessment & Plan (1) Pneumonia due to COVID-19 virus: 79-year-old male with a past medical history of hypertension, hyperlipidemia and BPH presenting to the hospital due to COVID-19 illness. Acute hypoxic respiratory failure: Secondary to COVID-19. Decadron increased to 20 mg for 5 days and then will decrease to 10 mg for 5 days. Continue to wean high flow nasal cannula to maintain saturations of 92 to 94%. Prognosis remains guarded. Patient can be downgraded to PCU status from ICU. Palliative care is following the patient. (2) Hypoxia: (3) Breath shortness: (4) Lower extremity edema: Admission and Anticipated Discharge Date Admission Date: July 14, 2020 Subjective Patient seen and examined this morning. Continues on high flow nasal cannula. He has increasing tachypnea. Patient feels that he is doing better today with improved dyspnea. Denies any chest pain. Still has an ongoing dry cough. Sitting up in chair today. Review of Systems Review of Systems: All systems reviewed & are unremarkable except as noted in HPI & below Physical Exam Constitutional: Elderly-appearing male in mild distress. High flow nasal cannula in place. Neck: normal visual inspection Respiratory: Mild tachypnea. No use of accessory muscles at this time. Diminished lung sounds. No wheezing. Cardiovascular: Rate/Rhythm: regular rate and regular rhythm Heart Sounds: normal S1 and normal S2 Extremities: + edema Gastrointestinal (Abdomen): normal bowel sounds, soft, nontender, no hepatosplenomegaly Musculoskeletal: no cyanosis or clubbing, extremities motor strength 5/5 Neurologic: PERRL, EOMI, accommodation nl, no face palsy, no dysarthria Psychiatric: A+Ox3, euthymic affect Results & Data Results & Data ([facility]) Vital Signs (Past 12 Hours) Vital Signs Temp Pulse Pulse Resp BP Pulse Ox 07/20/20 15:00 82 07/20/20 14:58 82 19 92 07/20/20 14:00 90 117/72 87 L 07/20/20 13:00 88 113/62 93 07/20/20 12:00 78 108/63 96 07/20/20 11:30 79 20 93 07/20/20 11:00 90 94/58 L 92 07/20/20 10:00 95 H 119/69 100 04/29/21 09:00 96 H 97 07/20/20 08:00 97 H 71 L 07/20/20 07:44 98.4 F 07/20/20 07:39 75 110/57 L 89 L 07/20/20 07:12 72 24 93 07/20/20 06:01 63 90 07/20/20 06:00 61 20 91/53 L 90 07/20/20 05:01 63 91 07/20/20 05:00 64 96/55 L 87 L 07/20/20 04:02 98.2 F 07/20/20 04:01 60 94 07/20/20 04:00 61 90/50 L 91 07/20/20 03:55 60 20 93 07/20/20 03:17 68 104/48 L 89 L 07/20/20 03:16 65 90/71 L 86 L Vital signs, labs and imaging reviewed Coding Level of Care Code 13459 Subseq Hosp Care Lvl 2 Diagnoses Pneumonia due to COVID-19 virus U07.1; J12.82 Hypoxia R09.02 Breath shortness R06.02 Lower extremity edema R60.0
--- NOTE | 2020-07-20 15:20 | Hospitalist Progress Note ---
Date of Service July 20, 2020 Assessment & Plan (1) Pneumonia due to COVID-19 virus: (2) Hypoxia: Acute hypoxemic respiratory failure secondary to COVID-19 pneumonia Presented on admission with cough, fever and SOB CXR showed moderate multifocal bilateral airspace opacities suggestive of an infectious process such as viral pneumonia Continue Dexamethasone 6mg IV daily /completed 5 days of IV remdesivir On high flow oxygen, remained stable overnight, downgraded to PCU status Patient is DNR/DNI History of hypertension Patient is borderline hypotensive SBP in low 100 All antihypertensives kept on hold History of hyperlipidemia Continue statin. History of benign prostatic hypertrophy Hold Flomax in the setting of hypotension Chronic kidney disease stage III Creatinine 1.16 Stable DVT px on Lovenox subq CODE STATUS DNR/DNI Overall prognosis remains guarded Update will be given to patient's family over phone Admission and Anticipated Discharge Date Admission Date: July 14, 2020 Subjective Pt was seen and examined for follow-up of for acute hypoxemic respiratory failure secondary to COVID-19 pneumonia: Patient sitting up on chair, still on high flow oxygen, reports of feeling little bit better At rest saturation noted to be 92/94%, desaturates quickly during conversation to low 80s Has not been febrile, Denies of any chest pain, shortness of breath improved, occasional dry nonproductive cough Review of Systems Review of Systems: All systems reviewed & are unremarkable except as noted in Subjective Physical Exam Physical Exam: Physical exam: General: Ill appearing elderly male HEENT: PERRLA, EOMI, Heart: Regular S1-S2, Lungs: Very diminished breath sound with coarse Rales Abdomen: Soft nontender, no organomegaly Extremity: No cyanosis, no deformity, Neuro: No focal neurological deficit normal speech, n Psych: Alert awake oriented x3, normal affect Results & Data Results & Data ([facility]) Vital Signs (Past 12 Hours) Vital Signs Temp Pulse Pulse Resp BP Pulse Ox 07/20/20 15:00 82 07/20/20 14:58 82 19 92 07/20/20 14:00 90 117/72 87 L 07/20/20 13:00 88 113/62 93 07/20/20 12:00 78 108/63 96 07/20/20 11:30 79 20 93 07/20/20 11:00 90 94/58 L 92 07/20/20 10:00 95 H 119/69 100 07/20/20 09:00 96 H 97 07/20/20 08:00 97 H 71 L 07/20/20 07:44 36.9 C 07/20/20 07:39 75 110/57 L 89 L 07/20/20 07:12 72 24 93 07/20/20 06:01 63 90 07/20/20 06:00 61 20 91/53 L 90 07/20/20 05:01 63 91 07/20/20 05:00 64 96/55 L 87 L 07/20/20 04:02 36.8 C 07/20/20 04:01 60 94 07/20/20 04:00 61 90/50 L 91 07/20/20 03:55 60 20 93
[2020-07-20] MEDS ORDERED: DEXTROSE 50% 50 ML SYRINGE IV PRN (16:15)
[2020-07-20] MEDS ORDERED: CARBOHYDRATES FOR HYPOGLYCEMIA PO PRN (16:15)
[2020-07-20] MEDS ORDERED: GLUCOSE 40% GEL 15 GM TUBE PO PRN (16:15)
[2020-07-20] MEDS ORDERED: GLUCOSE 10 TABS/TUBE PO PRN (16:15)
[2020-07-20] MEDS ORDERED: GLUCAGON FOR INJ 1 MG VIAL IM PRN (16:15)
[2020-07-20] MEDS: INSULIN ASPART 100 UNITS/ML 3 ML PEN SC SCH ×2 (17:30→20:43)
[2020-07-20] MEDS ORDERED: bisacodyL 5 MG TABEC PO ONE (17:56)
[2020-07-20] MEDS ORDERED: POLYETHYLENE (MIRALAX) 17 GM PACK PO ONE (18:15)
[2020-07-20] MEDS: SIMVASTATIN 40 MG TAB PO SCH (21:04)
[2020-07-21] MEDS: ASPIRIN 81 MG ECTAB PO SCH (09:31)
[2020-07-21] MEDS: CHOLECALCIFEROL 1,000 UNITS 25 MCG TAB PO SCH (09:31)
[2020-07-21] MEDS: dexAMETHasone 20 MG in DEXTROSE 5% 25 ML IV SCH (09:34)
[2020-07-21] MEDS: ENOXAPARIN INJ 40 MG/0.4 ML SYR SQ SCH ×2 (09:35→20:19)
[2020-07-21] MEDS: POLYETHYLENE (MIRALAX) 17 GM PACK PO SCH ×2 (09:36→20:20)
[2020-07-21] MEDS: guaiFENesin/DEXTROM SYRUP 200MG/20MG 10ML UDC PO PRN (09:36)
[2020-07-21] MEDS: DOCUSATE SODIUM/SENNA 50/8.6MG TAB PO SCH (09:38)
[2020-07-21] MEDS: INSULIN ASPART 100 UNITS/ML 3 ML PEN SC SCH ×4 (09:46→21:25)
--- NOTE | 2020-07-21 10:53 | Hospitalist Progress Note ---
Date of Service July 21, 2020 Assessment & Plan (1) Pneumonia due to COVID-19 virus: (2) Hypoxia: Acute hypoxemic respiratory failure secondary to COVID-19 pneumonia Presented on admission with cough, fever and SOB COVID-19 positive CXR moderate multifocal bilateral airspace opacities suggestive of an infectious process such as viral pneumonia completed 5 days of IV remdesivir Dexamethasone dose increased to 20 mg daily by pulmonology Prognosis remains guarded On high flow oxygen, Patient is DNR/DNI History of hypertension Patient is borderline hypotensive SBP in low 100 All antihypertensives kept on hold History of hyperlipidemia Continue statin. History of benign prostatic hypertrophy Hold Flomax in the setting of hypotension Chronic kidney disease stage III Creatinine stable DVT px on Lovenox subq CODE STATUS DNR/DNI Overall prognosis remains guarded Update will be given to patient's family over phone Admission and Anticipated Discharge Date Admission Date: July 14, 2020 Subjective Pt was seen and examined for follow-up of for acute hypoxemic respiratory failure secondary to COVID-19 pneumonia: Patient is sitting up on chair, on high flow oxygen oxygen saturation at rest remains to [id number], Desaturates down to low 80s during conversation Patient's states that he started to experience a sore throat with posterior nasal drip since yesterday causing him to cough making him more short of breath Had a bowel movement after getting an enema yesterday, feels much better Febrile episode now, appetite fair Review of Systems Review of Systems: All systems reviewed & are unremarkable except as noted in Subjective Physical Exam Physical Exam: Physical exam: General: Ill appearing elderly male HEENT: PERRLA, EOMI, Heart: Regular S1-S2, Lungs: Very diminished breath sound with coarse Rales Abdomen: Soft nontender, no organomegaly Extremity: No cyanosis, no deformity, Neuro: No focal neurological deficit normal speech, Psych: Alert awake oriented x3, normal affect Results & Data Results & Data ([facility]) Vital Signs (Past 12 Hours) Vital Signs Temp Pulse Resp BP BP Pulse Ox 07/21/20 08:05 87 20 90 07/21/20 07:41 36.4 C L 96 H 24 105/72 91 07/21/20 03:46 76 20 91 07/20/20 23:51 36.7 C 85 20 122/69 90 07/20/20 23:31 86 20 95
[2020-07-21] MEDS ORDERED: COUGH DROP (SUGAR FREE) LOZ 24 LOZ/1 BOX BUCCAL ONE (11:29)
[2020-07-21] MEDS: BENZONATATE 100 MG CAPSULE PO SCH ×2 (13:33→20:19)
[2020-07-21] MEDS: SIMVASTATIN 40 MG TAB PO SCH (20:19)
[2020-07-22] MEDS ORDERED: FUROSEMIDE 20 MG in SYRINGE 0 ML IV ONE (08:13)
[2020-07-22] MEDS: guaiFENesin/DEXTROM SYRUP 200MG/20MG 10ML UDC PO PRN (08:40)
[2020-07-22] MEDS: ENOXAPARIN INJ 40 MG/0.4 ML SYR SQ SCH ×2 (08:41→20:35)
[2020-07-22] MEDS: ASPIRIN 81 MG ECTAB PO SCH (08:41)
[2020-07-22] MEDS: CHOLECALCIFEROL 1,000 UNITS 25 MCG TAB PO SCH (08:41)
[2020-07-22] MEDS: BENZONATATE 100 MG CAPSULE PO SCH ×3 (08:42→20:34)
[2020-07-22] MEDS ORDERED: FUROSEMIDE 40 MG/4 ML VIAL IV ONE (08:45)
[2020-07-22] MEDS: dexAMETHasone 20 MG in DEXTROSE 5% 25 ML IV SCH (08:51)
[2020-07-22] MEDS: DOCUSATE SODIUM/SENNA 50/8.6MG TAB PO SCH ×2 (08:51→12:29)
[2020-07-22] MEDS: INSULIN ASPART 100 UNITS/ML 3 ML PEN SC SCH ×4 (08:52→20:35)
--- NOTE | 2020-07-22 08:53 | XRay Report ---
XR chest 1V portable HISTORY: 79 years-old Male SOB /CoVID pneumonia acute shortness of breath. COMPARISON: Chest radiograph 07/19/2020 TECHNIQUE: Portable AP view of the chest FINDINGS: Cardiac silhouette is upper limits of normal in size. There is a new right-sided pneumothorax, pleura l separation of 2.5 cm. Moderate associated subcutaneous emphysema of the upper chest and supraclavic ular distributions. Moderate associated pneumomediastinum. Interstitial coarsening with progressed bi lateral airspace opacities. Blunted costophrenic angles. IMPRESSION: 1. Interval development of a right-sided pneumothorax, apical pleural separation of 2.5 cm. 2. Moderate subcutaneous emphysema of the chest wall and supraclavicular distributions with pneumomed iastinum is also new from comparison. 3. Progressive airspace opacities suggest worsening pneumonia. ACT 112: Negative or not required by law. The above report was generated using voice recognition software. It may contain grammatical, syntax o r spelling errors. Electronically signed by: Marco A Browne M.D. 07/22/2020 8:52 AM
--- NOTE | 2020-07-22 09:16 | Communication Note ---
Date of Service: July 22, 2020 received update from resp therapist this AM pt noted to have episodes of desaturation this AM and last night ( while asleep spo2 drops to 80% ) improves to 90% when awake on 80% on 40L , 100% high flow remains tachypneic RR in 30's pulm updated , cxray ordered shows 25 mm pneumothorax on right upper lobe per pulm size of pneumothorax is too small for intervention recommends repeat Cxray in 4 hrs , avoid CPAP/BiPAP or any positive pressure pt will remain on high flow prognosis is poor , will update Cleo Valerio MD
--- NOTE | 2020-07-22 10:10 | Hospitalist Progress Note ---
Date of Service July 22, 2020 Assessment & Plan (1) Pneumonia due to COVID-19 virus: (2) Hypoxia: Acute hypoxemic respiratory failure secondary to COVID-19 pneumonia rt sided spontaneous pneumothorax progressive hypoxia , and respiratory desaturation noted today has been on high flow 02 was on 40Lpm /100% fio2 , increased to 60Lpm spo02 remains around 80's , desaturates to 78-79% while talking Chest Xay shows rt sided 25 mm pneumothorax Pulm aware , pneumothorax size is too small to place chest tube recommends to continue supportive care repeat Cxray ordered at 1 pm and then daily xray updated over phone . xay shows progressive infectious process , lasix 20 mg IV given to keep pt on dryer side to better ventilation over all prognosis poor pt Presented on admission with cough, fever and SOB COVID-19 positive CXR moderate multifocal bilateral airspace opacities suggestive of an infectious process such as viral pneumonia completed 5 days of IV remdesivir Dexamethasone dose increased to 20 mg daily by pulmonology Patient is DNR/DNI History of hypertension Patient is borderline hypotensive SBP in low 100 with worsening of respiratory failure All antihypertensives kept on hold intermittent lasix to prevent pulmonary congestion due to COVID 19 infection History of hyperlipidemia Continue statin. History of benign prostatic hypertrophy Hold Flomax in the setting of hypotension Chronic kidney disease stage III Creatinine stable DVT px on Lovenox subq CODE STATUS DNR/DNI Overall prognosis remains guarded Update will be given to patient's [place] over phone aware of the new development and seriousness of the xray finding wants to have a update regarding repeat xray when available Admission and Anticipated Discharge Date Admission Date: July 14, 2020 Subjective Pt was seen and examined for follow-up of for acute hypoxemic respiratory failure secondary to COVID-19 pneumonia: got called to the unit , as pt was desaturating , tachypneic seen at bedside , on high flow , no apparent distress , says he feels more fatigued than yesterday does not feel short of breath or chest heaviness , aware that he is requiring more 02 support now updated about the chest xray finding , size of pneumatothorax too small to intervene , pt is aware , ok for chest tube if needed in future prognosis remains guarded Review of Systems Respiratory: as per Subjective / HPI and + dyspnea Physical Exam Physical Exam: Physical exam: General: Ill appearing elderly male/anxious HEENT: PERRLA, EOMI, Heart: Regular S1-S2, Lungs: Very diminished breath sound with coarse Rales/tachypneic Abdomen: Soft nontender, no organomegaly Extremity: No cyanosis, no deformity, Neuro: No focal neurological deficit normal speech, Psych: Alert awake oriented x3, normal affect Results & Data Results & Data ([facility]) Vital Signs (Past 12 Hours) Vital Signs Temp Pulse Pulse Resp BP BP Pulse Ox 07/22/20 07:54 75 26 H 90 07/22/20 07:37 36.8 C 82 21 116/57 L 80 L 07/22/20 04:10 36.7 C 76 22 106/58 L 91 07/22/20 03:00 63 24 88 L 07/21/20 23:48 36.8 C 73 20 104/68 89 L 07/21/20 23:25 75 22 90 07/21/20 22:20 71
[2020-07-22] MEDS: POLYETHYLENE (MIRALAX) 17 GM PACK PO SCH ×2 (12:27→20:34)
--- NOTE | 2020-07-22 13:51 | XRay Report ---
XR chest 1V portable CLINICAL HISTORY: Pneumonia. Pneumothorax. COMPARISON STUDY: 07/22/2020 FINDINGS: The cardiac and mediastinal contours remain stable. There is a persistent right-sided pneum othorax with apical pleural separation of 29 mm. There is subcutaneous gas present. There is minimal mediastinum. There are persistent bilateral pulmonary airspace opacities consistent with a multifocal pneumonia. IMPRESSION: 1. Multifocal pulmonary airspace opacities consistent with a multifocal pneumonia 2. Persistent right-sided pneumothorax with apical pleural separation of 29 mm 3. Pneumomediastinum and subcutaneous emphysema. ACT 112: Negative or not required by law. Electronically signed by: Farhat Manuel M.D. 07/22/2020 1:50 PM
--- NOTE | 2020-07-22 14:19 | Pulmonology Progress Note ---
Date of Service July 22, 2020 Assessment & Plan (1) Pneumonia due to COVID-19 virus: 79-year-old male with a past medical history of hypertension, hyperlipidemia and BPH presenting to the hospital due to COVID-19 illness. Acute hypoxic respiratory failure: Secondary to COVID-19. Day #3 of 20 mg Decadron. Continue to wean high flow nasal cannula to maintain saturations of 92 to 94%. Spontaneous pneumothorax on the right: He now has evidence of pneumothorax on the right likely related to ARDS and poor lung compliance. The pneumothorax appears to be expanding in size. There is an apical portion measuring approximately 3 cm. I have asked Dr. Sharma of general surgery to evaluate the patient for a possible surgical chest tube that can be placed and directed apically. Dr. Sharma is going to evaluate the patient. Greatly appreciate his input. I have updated the patient's son and over the phone. They are agreeable with the procedure. Prognosis remains very guarded at this time. Palliative care is following the patient. (2) Hypoxia: (3) Breath shortness: (4) Lower extremity edema: (5) Pneumothorax: (6) Pneumomediastinum: Admission and Anticipated Discharge Date Admission Date: July 14, 2020 Subjective She is seen examined this morning. He has increased work of breathing and is currently requiring 100% FiO2 at 60 L of oxygen. He appears tired. He denies any chest pain at this time. He denies any significant shortness of breath, but clearly appears dyspneic with conversation. Review of Systems Review of Systems: All systems reviewed & are unremarkable except as noted in HPI & below Physical Exam Constitutional: Elderly-appearing male in mild distress. High flow nasal cannula in place. Neck: normal visual inspection Respiratory: + uses accessory muscles and + tachypneic Diminished lung sounds. No wheezing. Cardiovascular: Rate/Rhythm: regular rate and regular rhythm Heart Sounds: normal S1 and normal S2 Extremities: + edema Gastrointestinal (Abdomen): normal bowel sounds, soft, nontender, no hepatosplenomegaly Musculoskeletal: no cyanosis or clubbing, extremities motor strength 5/5 Neurologic: PERRL, EOMI, accommodation nl, no face palsy, no dysarthria Psychiatric: A+Ox3, euthymic affect Results & Data Results & Data ([facility]) Vital Signs (Past 12 Hours) Vital Signs Temp Pulse Pulse Resp BP BP Pulse Ox 07/22/20 12:01 97.7 F 91 H 24 116/80 92 07/22/20 10:50 100 07/22/20 10:44 90 18 90 07/22/20 10:25 96 H 18 89 L 07/22/20 08:00 82 07/22/20 07:54 75 26 H 90 07/22/20 07:37 98.2 F 82 21 116/57 L 80 L 07/22/20 04:10 98.1 F 76 22 106/58 L 91 07/22/20 03:00 63 24 88 L Pulse Ox 07/22/20 12:01 07/22/20 10:50 07/22/20 10:44 07/22/20 10:25 07/22/20 08:00 84 L 07/22/20 07:54 07/22/20 07:37 07/22/20 04:10 07/22/20 03:00 vital signs labs and imaging reviewed. Serial chest x-rays obtained today d emonstrate increasing pneumothorax on the right with evidence of pneumomediastinum. PG Care Time/CCT Total # of Minutes Spent Total Time Spent with Patient: Total time spent is greater than 50% in coordination of care (as documented) at patient's floor/unit and/or counseling patient: Coding Level of Care Code 47690 Subseq Hosp Care Lvl 3 Diagnoses Pneumonia due to COVID-19 virus U07.1; J12.82 Hypoxia R09.02 Breath shortness R06.02 Lower extremity edema R60.0 Pneumothorax J93.9 Pneumomediastinum J98.2
[2020-07-22] MEDS ORDERED: LIDOCAINE HCL 1% 20 ML VIAL ONE (14:52)
[2020-07-22] MEDS ORDERED: LIDO/EPINEPHRINE/SOD BICARB 20 ML VIAL INFIL ONE (14:57)
[2020-07-22] MEDS ORDERED: HYDROmorphone INJ 1 MG/ML SYRINGE ONE (15:39)
--- NOTE | 2020-07-22 16:04 | Surgery Consultation ---
Date of Consultation July 22, 2020 Assessment & Plan (1) Pneumothorax: I had a discussion with Dr. Clark as well as the patient himself. Dr. Clark discussed with the family previously as well. We discussed the pros and cons of a tube thoracostomy. We discussed the risks which include bleeding, infection, injury to other structures such as the lung, etc. He is agreeable. 20 Swiss chest tube was placed this afternoon. Postoperative checks x-ray currently pending. (2) Pneumomediastinum: (3) Pneumonia due to COVID-19 virus: History of Present Illness Attending Physician: Cleo Valerio MD History of Present Illness 79-year-old white male admitted on 07/14/2020 due to respiratory failure with increasing shortness of breath fatigue and decreased taste and smell. Work-up revealed he was Covid positive. He had a chest x-ray earlier this morning showing a small pneumothorax which was different from his previous chest x-ray. Dr. Dowd feels he is going to need positive pressure oxygen he does not believe he could safely put a pigtail and to take care of this. Is requesting a larger bore surgical chest tube. Allergies Allergy/AdvReac Type Severity Reaction Status Date / Time pollen extracts Allergy Intermediate "Environmental" Verified 07/14/20 21:57 -- runny nose, sneezing Home Medications Medication Instructions Recorded Confirmed Type cholecalciferol (vitamin D3) 25 1,000 unit PO DAILY 11/22/19 07/14/20 History mcg (1,000 unit) tablet coQ10 (ubiquinol) 100 mg capsule 100 mg PO DAILY 11/22/19 07/14/20 History lisinopril 10 mg tablet 10 mg PO DAILY 11/22/19 07/14/20 History simvastatin 40 mg tablet 40 mg PO HS 11/22/19 07/14/20 History tadalafil 20 mg tablet 10 - 20 mg PO DIRECTED PRN 11/22/19 07/14/20 History aspirin 81 mg PO DAILY 07/14/20 07/14/20 History dextromethorphan-guaifenesin 10 ml PO DIRECTED PRN 07/14/20 07/14/20 History [Delsym Cough-Chest Congest DM] tamsulosin 0.8 mg PO DAILY 07/14/20 07/14/20 History Patient History Medical History (Updated 07/22/20 @ 14:17 by Jaydon Dowd MD) Hematuria Lower extremity edema No pertinent past medical history Pneumomediastinum Pneumothorax Prostate cancer screening encounter, options and risks discussed Surgical History No pertinent past surgical history Family History Brother Diabetes Social History Smoking Status: Former smoker Tobacco Type: Cigarettes Hx Alcohol Use: No Hx Substance Use: No Preferred Language: Georgian Communication Ability: Effective Guest Services Manager Required: No Beliefs That Will Affect Care: None marital status: Current Living Situation: Spouse and Family Feels Safe at Home: Yes Safety Concerns: Feels Safe At This Time Assistive Devices: None Review of Systems Review of Systems: All systems reviewed & are unremarkable except as noted in HPI & below Physical Exam Constitutional: WD/WN, vitals as above no acute distress and not ill appearing Eyes: PERRL, conjunctivae normal, anicteric sclerae EOM intact bilaterally ENMT: external ear and nose normal, oropharynx normal Ears: no hearing impairment Neck: trachea midline, no thyromegaly Respiratory: + uses accessory muscles and + tachypneic Decreased breath sound on the right base Cardiovascular: Rate/Rhythm: regular rhythm and + tachycardic Gastrointestinal (Abdomen): normal bowel sounds, soft, nontender, no hepatosplenomegaly Skin: no rashes, warm and dry Psychiatric: Orientation: alert, oriented x 3 and cooperative Results & Data ([facility]) Vital Signs (Past 12 Hours) Vital Signs Temp Pulse Pulse Resp BP BP Pulse Ox 07/22/20 15:20 90 18 89 L 07/22/20 12:01 36.5 C 91 H 24 116/80 92 07/22/20 10:50 100 07/22/20 10:44 90 18 90 07/22/20 10:25 96 H 18 89 L 07/22/20 08:00 82 07/22/20 07:54 75 26 H 90 07/22/20 07:37 36.8 C 82 21 116/57 L 80 L 07/22/20 04:10 36.7 C 76 22 106/58 L 91 Pulse Ox 07/22/20 15:20 07/22/20 12:01 07/22/20 10:50 07/22/20 10:44 07/22/20 10:25 07/22/20 08:00 84 L 07/22/20 07:54 07/22/20 07:37 07/22/20 04:10 PG Care Time/CCT Total # of Minutes Spent Total Time Spent with Patient: Total time spent is greater than 50% in coordination of care (as documented) at patient's floor/unit and/or counseling patient: Coding Level of Care Code 55171 Initial Inpt Care Lvl 3 Diagnoses Pneumothorax J93.9 Pneumomediastinum J98.2 Pneumonia due to COVID-19 virus U07.1; J12.82
--- NOTE | 2020-07-22 16:08 | Operative Report ---
PG Post Operative Report Pre & Post Diagnosis pre-op: right pneumothorax post-op: right pneumothorax I identified the patient and participated in the time-out.: Yes Procedure right tube thoracostomy Surgeon Akahs Sharma DO Director Of Software Engineering n/a Estimated Blood Loss 5 Findings Consistent with Post-Op Diagnosis Specimens none Description of Procedure At the patient's bedside informed consent was obtained. The patient was placed in the left lateral Jensen's position. The right chest wall was sterilely prepped and draped in usual fashion. Sterile technique was used throughout the procedure. An area near the seventh intercostal space was sterilely prepped and draped in usual fashion. Lidocaine with epinephrine was used to create a skin wheal over this area. I continued using lidocaine to numb the periosteum and the intercostal space. I was able to use a 1-1/2 inch needle to cannulate the thoracic cavity revealing air bubbles. I then used a 15 blade scalpel to make a horizontal incision. This was carried down primarily bluntly using finger penetration. A hemostat clamp was used to come over top of the seventh intercostal space into the thoracic cavity releasing a large amount of air. I then exchanged for a larger Jaqui clamp and again spread the intercostal muscles. A 20 Chilean chest tube was advanced through this without difficulty. It was advanced to the apex. It was secured to the skin using #1 Ethibond. The tube itself was connected to tubing to a Thoraclex device which was connected to 20 cm of wall suction. Xeroform and a sterile dressing was applied and secured. Postoperative portable chest x-ray is currently pending. The patient tolerated the procedure well. I attest to the content of the Intraoperative Record and any orders documented therein. Any exceptions are noted below.
--- NOTE | 2020-07-22 16:51 | XRay Report ---
XR chest 1V portable CLINICAL HISTORY: Pneumothorax status post chest tube placement COMPARISON STUDY: 07/22/2020 FINDINGS: There is been interval placement of a right-sided chest tube. The tip projects over the rig ht mid thoracic spine. There is interval decrease in the size the right apical pneumothorax which has a pleural separation of 1 cm. There is extensive subcutaneous emphysema. There is pneumomediastinum. There are bilateral pulmonary airspace opacities consistent with a multifocal pneumonia.[ IMPRESSION: 1. Interval placement of right-sided chest tube with interval decrease in the size of the right pneum othorax 2. Multifocal airspace opacities persist consistent with a multifocal pneumonia 3. Persistent subcutaneous emphysema and pneumomediastinum ACT 112: Negative or not required by law. Electronically signed by: Farhat Manuel M.D. 07/22/2020 4:50 PM
[2020-07-22] MEDS: SIMVASTATIN 40 MG TAB PO SCH (20:34)
[2020-07-22] MEDS: HYDROmorphone INJ 0.5 MG/0.5 ML SYR IV PRN (20:49)
[2020-07-23] MEDS: HYDROmorphone INJ 0.5 MG/0.5 ML SYR IV PRN (04:32)
[2020-07-23] MEDS: DOCUSATE SODIUM/SENNA 50/8.6MG TAB PO SCH (08:19)
[2020-07-23] MEDS: POLYETHYLENE (MIRALAX) 17 GM PACK PO SCH ×2 (08:19→20:19)
[2020-07-23] MEDS: dexAMETHasone 20 MG in DEXTROSE 5% 25 ML IV SCH (08:20)
[2020-07-23] MEDS: CHOLECALCIFEROL 1,000 UNITS 25 MCG TAB PO SCH (08:21)
[2020-07-23] MEDS: BENZONATATE 100 MG CAPSULE PO SCH (08:21)
[2020-07-23] MEDS: ENOXAPARIN INJ 40 MG/0.4 ML SYR SQ SCH ×3 (08:21→21:20)
[2020-07-23] MEDS: ASPIRIN 81 MG ECTAB PO SCH (08:21)
[2020-07-23] MEDS: INSULIN ASPART 100 UNITS/ML 3 ML PEN SC SCH ×4 (08:23→21:20)
--- NOTE | 2020-07-23 09:07 | XRay Report ---
XR chest 1V portable HISTORY: 79 years-old Male rt sided pneumothorax , COVID 19 pneumonia follow-up study in a patient w ith pneumonia and right-sided pneumothorax COMPARISON: Chest radiograph 07/22/2020 TECHNIQUE: Portable AP view of the chest FINDINGS: A right-sided chest tube is in unchanged positioning. The previously noted right-sided pneumothorax i s not definitively seen on today's study. Subcutaneous emphysema of the chest with pneumomediastinum redemonstrated. Multifocal airspace opacities are unchanged. No large pleural effusion. Degenerative changes of the shoulders and spine. IMPRESSION: 1. Unchanged positioning of the right-sided chest tube. The previously noted right-sided pneumothorax is not definitively seen. 2. Subcutaneous emphysema with pneumomediastinum redemonstrated. 3. Unchanged bilateral multifocal airspace opacities compatible with pneumonia. ACT 112: Negative or not required by law. The above report was generated using voice recognition software. It may contain grammatical, syntax o r spelling errors. Electronically signed by: Marco A Browne M.D. 07/23/2020 9:06 AM
--- NOTE | 2020-07-23 09:32 | Hospitalist Progress Note ---
Date of Service July 23, 2020 Assessment & Plan (1) Pneumonia due to COVID-19 virus: (2) Hypoxia: Acute hypoxemic respiratory failure secondary to COVID-19 pneumonia progressive resp failure with ARDS due to COVID 19 infection developed rt sided spontaneous pneumothorax , with progression of size and pneumomediastinum and subcutaneous air due to poor lung compliance in setting of ARDS and requirement for positive pressure ,high flow 02 right sided chest tube placed by Gen surgery yesterday Cxray show today morning shows resolution of rt sided pneumothorax , persistent pneumomediastinum and subcutaneous air remains in high flow 02 , spo2 between 90-80' tachypneic , pt is alert and oriented , understands the poor prognosis ordered to keep NPO to prevent hypoxia , holding meds -Aspirin /statin /vitamin supplement on Iv 0.5 mg Dilaudid for pain at chest tube side will limit Iv narcotic for sedative effect - ordered PRN roxanol liq will consider IV moprhine if pain is not relieved with Liquid morphine extremely poor prognosis daily chest xray ordered to asses position of chest tube and pneumothorax pt Presented on admission with cough, fever and SOB COVID-19 positive CXR moderate multifocal bilateral airspace opacities suggestive of an infect ious process such as viral pneumonia completed 5 days of IV remdesivir/high dose of Iv dexamethasone has been on high , spon pneumothorax as above very poor prognosis Patient is DNR/DNI History of hypertension Patient is borderline hypotensive SBP in low 100 with worsening of respiratory failure All antihypertensives discontinued as respiratory status continues to decline /hypoxia with PO intake -all maintenace meds: aspirin , statin ,vitamin supplements ordered to keep on hold receiving intermittent lasix to prevent pulmonary congestion due to COVID 19 infection Chronic kidney disease stage III Creatinine stable DVT px on Lovenox subq CODE STATUS DNR/DNI Overall prognosis remains guarded Update will be given to patient's [place] over phone spoke with Pt's Eldest son Giovanni -pt earlier expressed wish to sign POA papers so his son can take care of the bank account and financial issues , family been in touch with pt client account representative to co-ordinated with an Baggagemaster / if pt is too sick , family wants to hold it off till he gets better Mr Flores updated , he wants to sign the papers tomorrow, will update Pt client account representative Admission and Anticipated Discharge Date Admission Date: July 14, 2020 Subjective Pt was seen and examined for follow-up of for acute hypoxemic respiratory failure secondary to COVID-19 pneumonia: pt remains very tachypneic , gets hypoxic with minimum movement , conversation seen at bedside rt sided chest tube placed yesterday for progression of rt sided spontaneous pneumothorax . complains of sharp pain at chest tube site with breathing ,able to get pain control with PRN Iv dilaudid no appetite , ok to hold of diet for now ,as getting more hypoxic while attempt to eat or drink remains on high flow 02 with Spo2 in low 90's /desaturation to 80's during conversation overall prognosis is very poor . Review of Systems Review of Systems: All systems reviewed & are unremarkable except as noted in Subjective Physical Exam Physical Exam: Physical exam: General: very frail ill appearing , elderly male, in moderate resp distress HEENT: PERRLA, EOMI, Heart: Regular S1-S2, Lungs: tachypneic , rt sided chest tube present , audible breath sound on rt apex Abdomen: Soft nontender, Extremity: cyanosis noted on tip of nose , extremities , worse with conversation Neuro: No focal neurological deficit /conversation difficult due to resp distress Psych: Alert awake / Results & Data Results & Data ([facility]) Vital Signs (Past 12 Hours) Vital Signs Temp Pulse Resp BP Pulse Ox 07/23/20 07:41 36.5 C 82 24 133/76 90 07/23/20 07:32 86 20 89 L 07/23/20 03:30 36.5 C 68 21 126/76 92 07/23/20 03:25 80 20 91 07/22/20 23:47 36.2 C L 78 21 123/71 92 07/22/20 22:51 73 24 91
--- NOTE | 2020-07-23 10:09 | Surgery Progress Note ---
Date of Service July 23, 2020 Assessment & Plan (1) Pneumothorax: pneumothorax appears resolved on this AM cxr will keep to wall suction as he is on positive pressure oxygen will probably need to keep tube in place as long as he requires positive pressure. will d/w Dr. Dowd regarding management of the tube since he is in the covid unit to limit foot traffic. (2) Pneumomediastinum: (3) Pneumonia due to COVID-19 virus: Admission and Anticipated Discharge Date Admission Date: July 14, 2020 Subjective pt seen. feeling better than yesterday. some pain at tube site. Physical Exam Physical Exam: alert. appears more comfortable than yesterday tube unchanged. less respiratory effort. Results & Data ([facility]) Vital Signs (Past 12 Hours) Vital Signs Temp Pulse Resp BP Pulse Ox 07/23/20 07:41 36.5 C 82 24 133/76 90 07/23/20 07:32 86 20 89 L 07/23/20 03:30 36.5 C 68 21 126/76 92 07/23/20 03:25 80 20 91 07/22/20 23:47 36.2 C L 78 21 123/71 92 07/22/20 22:51 73 24 91 PG Care Time/CCT Total # of Minutes Spent Total Time Spent with Patient: Total time spent is greater than 50% in coordination of care (as documented) at patient's floor/unit and/or counseling patient: Coding Level of Care Code 76539 Subseq Hosp Care Lvl 3 Diagnoses Pneumothorax J93.9 Pneumomediastinum J98.2 Pneumonia due to COVID-19 virus U07.1; J12.82
--- NOTE | 2020-07-23 13:10 | Pulmonology Progress Note ---
Date of Service July 23, 2020 Assessment & Plan (1) Pneumonia due to COVID-19 virus: 79-year-old male with a past medical history of hypertension, hyperlipidemia and BPH presenting to the hospital due to COVID-19 illness. Acute hypoxic respiratory failure: Secondary to COVID-19. Day #4 of 20 mg Decadron. Continue to wean high flow nasal cannula to maintain saturations of 92 to 94%. Chest x-ray with persistent bilateral infiltrates consistent with COVID-19 related inflammation. Patient essentially has ARDS at this time. Spontaneous pneumothorax on the right: Underwent surgical chest tube placement on 07/22/2020. Size 20 Tu[place]uan chest tube is currently in place. Appreciate the assistance of Dr. Sharma of general surgery. The pneumothorax appears to have improved today. We will leave the patient on wall suction today given the use of high flow oxygen (60 L, 100% FiO2). Will consider clamping trials tomorrow. He also has evidence of pneumomediastinum which should reabsorb over time as the pneumothorax heals. If he has worsening respiratory failure despite improvement of the pneumothorax, may need to consider small chest wall incisions to help vent out the subcutaneous emphysema. Prognosis remains very guarded at this time. Palliative care is following the patient and will be available again on Friday. Pulmonary will continue to follow along with you. Thank you for the consultation. (2) Hypoxia: (3) Breath shortness: (4) Lower extremity edema: (5) Pneumothorax: (6) Pneumomediastinum: (7) ARDS (adult respiratory distress syndrome): Admission and Anticipated Discharge Date Admission Date: July 14, 2020 Subjective Patient continues to remain hypoxic. He looks weak and frail at this time. He denies shortness of breath and says that he is doing well. He clearly appears tired. He denies any chest pain. Review of Systems Review of Systems: All systems reviewed & are unremarkable except as noted in HPI & below Physical Exam Constitutional: Elderly-appearing male in mild distress. High flow nasal cannula in place. Neck: normal visual inspection Respiratory: + uses accessory muscles and + tachypneic Diminished lung sounds. No wheezing. Cardiovascular: Rate/Rhythm: regular rate and regular rhythm Heart Sounds: normal S1 and normal S2 Extremities: + edema Gastrointestinal (Abdomen): normal bowel sounds, soft, nontender, no hepato splenomegaly Musculoskeletal: no cyanosis or clubbing, extremities motor strength 5/5 Neurologic: PERRL, EOMI, accommodation nl, no face palsy, no dysarthria Psychiatric: A+Ox3, euthymic affect Results & Data Results & Data ([facility]) Vital Signs (Past 12 Hours) Vital Signs Temp Pulse Resp BP Pulse Ox 07/23/20 11:23 98.1 F 78 24 108/72 91 07/23/20 11:00 79 20 90 07/23/20 07:41 97.7 F 82 24 133/76 90 07/23/20 07:32 86 20 89 L 07/23/20 03:30 97.7 F 68 21 126/76 92 07/23/20 03:25 80 20 91 Vital signs, labs and imaging reviewed. PG Care Time/CCT Total # of Minutes Spent Total Time Spent with Patient: Total time spent is greater than 50% in coordination of care (as documented) at patient's floor/unit and/or counseling patient: Coding Level of Care Code 59970 Subseq Hosp Care Lvl 3 Diagnoses Pneumonia due to COVID-19 virus U07.1; J12.82 Hypoxia R09.02 Breath shortness R06.02 Lower extremity edema R60.0 Pneumothorax J93.9 Pneumomediastinum J98.2 ARDS (adult respiratory distress syndrome) J80
[2020-07-23] MEDS: MoRPHine SULFATE 5 MG/0.25 ML UDP PO PRN ×2 (20:18→23:31)
[2020-07-24 06:44] LABS: Hematocrit (blood only) 51.2 % (42-52); Hemoglobin 17.8 g/dL (14.0-18.0); Mean Corpuscular Hemoglobin 30.7 pg (25-34); Mean Corpuscular Hgb Conc 34.8 g/dL (32-36); Mean Corpuscular Volume 88.3 fL (80-100); Mean Platelet Volume 10.4 fL (7.4-10.4); Platelet Count 519 K/uL (130-400); RDW Coefficient of Variation 14.2 % (11.5-14.5); RDW Standard Deviation 45.7 fL (36.4-46.3); White Blood Count 17.73 K/uL (4.8-10.8)
[2020-07-24 06:59] LABS: BUN Creatinine Ratio 40.3 (10-20); Calcium 9.6 mg/dl (8.5-10.1); Creatinine Clr Calc Pharmacy 51.9 ml/min; Est GFR (African American) 59.3; Est GFR (Non-African American) 51.2; Potassium 4.8 mmol/L (3.5-5.1)
[2020-07-24] MEDS: ENOXAPARIN INJ 40 MG/0.4 ML SYR SQ SCH ×2 (08:16→20:28)
[2020-07-24] MEDS: POLYETHYLENE (MIRALAX) 17 GM PACK PO SCH ×2 (08:16→20:30)
[2020-07-24] MEDS: CHOLECALCIFEROL 1,000 UNITS 25 MCG TAB PO SCH (08:16)
--- NOTE | 2020-07-24 08:48 | XRay Report ---
XR chest 1V portable CLINICAL HISTORY: rt sided pneumothorax , COVID 19 pneumonia COMPARISON STUDY: Chest radiograph July 23, 2020. FINDINGS: Right chest tube is in place. A small right pneumothorax with superior pleural separation o f 2.4 cm has increased. Extensive pneumomediastinum and subcutaneous emphysema are similar to prior e xam. Bilateral airspace opacities are similar to prior study. Cardiac size is stable. Mediastinal con tours are stable. There is no left pneumothorax. IMPRESSION: 1. Increase in a small right apical pneumothorax with superior pleural separation of 2.4 cm. Right ch est tube in place. 2. Persistent pneumomediastinum and subcutaneous emphysema. 3. No change in bilateral airspace opacities suggestive of an infectious process. ACT 112: Negative or not required by law. Electronically signed by: Adrian Olson M.D. 07/24/2020 8:47 AM
[2020-07-24] MEDS: INSULIN ASPART 100 UNITS/ML 3 ML PEN SC SCH ×4 (09:00→20:28)
--- NOTE | 2020-07-24 12:01 | Surgery Progress Note ---
Date of Service July 24, 2020 Assessment & Plan (1) Pneumothorax: pt with slight increase in pneumothorax and some worsening of respiratory status. D/w Dr. Lopez... we both agree the pneumothorax is likely not his main issue. will keep chest tube so we can continue to give him positive pressure. B/c of him being on the Covid unit, I will allow Dr. Lopez to manage the chest tube to limit foot traffic. I will follow from periphery. I would be happy to reposition tube if he feels it would be of benefit. (2) Pneumomediastinum: (3) ARDS (adult respiratory distress syndrome): Admission and Anticipated Discharge Date Admission Date: July 14, 2020 Results & Data ([facility]) Vital Signs (Past 12 Hours) Vital Signs Temp Pulse Pulse Pulse Resp BP Pulse Ox 07/24/20 11:29 37.1 C 112 H 24 109/74 90 07/24/20 10:25 116 H 35 H 88 L 07/24/20 08:35 117 H 33 H 90 07/24/20 08:05 113 H 37 H 94 07/24/20 08:03 118 H 39 H 90 07/24/20 05:24 89 L 07/24/20 04:55 36.6 C 112 H 26 H 124/87 82 L 07/24/20 03:25 96 H 24 91 PG Care Time/CCT Total # of Minutes Spent Total Time Spent with Patient: Total time spent is greater than 50% in coordination of care (as documented) at patient's floor/unit and/or counseling patient: Coding Level of Care Code 67681 Subseq Hosp Care Lvl 2 Diagnoses Pneumothorax J93.9 Pneumomediastinum J98.2 ARDS (adult respiratory distress syndrome) J80
[2020-07-24] MEDS: MoRPHine SULFATE 5 MG/0.25 ML UDP PO PRN ×3 (13:05→20:34)
[2020-07-24] MEDS: MoRPHine SULFATE 2 MG/ML CARP IV PRN ×3 (13:23→19:17)
--- NOTE | 2020-07-24 13:45 | Pulmonology Progress Note ---
Date of Service July 24, 2020 Assessment & Plan (1) Pneumonia due to COVID-19 virus: Impression: 79-year-old male with a past medical history of hypertension, hyperlipidemia and BPH presenting to the hospital due to COVID-19 illness. His course has been complicated by development of pneumothorax pneumomediastinum and significant subcutaneous emphysema. Recommendations: 1. Acute hypoxic respiratory failure: Secondary to COVID-19. Day #5 of 20 mg Decadron. Continue to wean high flow nasal cannula however at this point time we cannot achieve acceptable oxygen saturations. The patient was tried on noninvasive positive pressure ventilation for a brief period of time however this was ineffectual and the patient felt worse on CPAP/BiPAP. Would continue supplemental oxygen at this point time although it appears appropriate to transition to a palliative care approach and I would strongly favor initiation of medications designed to improve patient's comfort. I do not think this is going to be a salvageable situation. 2. Spontaneous pneumothorax on the right: Underwent surgical chest tube placement on 07/22/2020. Size 20 Iranian chest tube is currently in place. Disc ussed with surgery. We will increase suction to 30 cm of water however his acute decompensation does not appear related to pneumothorax or pneumomediastinum. We will leave chest tube in place. There is no contraindication to trials of CPAP or BiPAP however the patient felt worse on these interventions and at this point time I would focus on patient comfort. 3. Recommend reengagement of palliative care. I think focusing on comfort at this point time for the patient would be the most reasonable approach. I am not sure that this will be survivable. Pulmonary is available to assist if needed. We will follow from a distance. Please call if we can be of additional assistance (2) Hypoxia: (3) Breath shortness: (4) Lower extremity edema: (5) Pneumothorax: (6) Pneumomediastinum: (7) ARDS (adult respiratory distress syndrome): Admission and Anticipated Discharge Date Admission Date: July 14, 2020 Subjective Patient seen and examined. Discussed with respiratory therapy and bedside nursing. The patient is had increasing work of breathing and worsening oxygenation. He is currently on high flow at 60 L/min 100% and only saturating in the low 80% range and despite this remains quite tachypneic with respiratory rates in the 20s to 30s. He received oral Roxanol which was effective in alleviating some of his work of breathing. He is a DO NOT INTUBATE DO NOT RESUSCITATE and apparently has completed a variety of end-of-life discussions with multiple family members earlier today. He is not complaining of any significant pain to the chest tube. Review of Systems Review of Systems: Please refer to hospitalist note for full details Physical Exam Constitutional: Elderly-appearing male in mild distress. High flow nasal cannula in place. Neck: normal visual inspection Respiratory: + uses accessory muscles and + tachypneic Diminished lung sounds. No wheezing. Cardiovascular: Rate/Rhythm: regular rate and regular rhythm Heart Sounds: normal S1 and normal S2 Extremities: + edema Gastrointestinal (Abdomen): normal bowel sounds, soft, nontender, no hepatosplenomegaly Musculoskeletal: no cyanosis or clubbing, extremities motor strength 5/5 Neurologic: PERRL, EOMI, accommodation nl, no face palsy, no dysarthria Psychiatric: A+Ox3, euthymic affect Results & Data Results & Data ([facility]) Vital Signs (Past 12 Hours) Vital Signs Temp Pulse Pulse Pulse Resp BP Pulse Ox 07/24/20 11:29 37.1 C 112 H 24 109/74 90 07/24/20 10:25 116 H 35 H 88 L 07/24/20 08:35 117 H 33 H 90 07/24/20 08:05 113 H 37 H 94 07/24/20 08:03 118 H 39 H 90 07/24/20 05:24 89 L 07/24/20 04:55 36.6 C 112 H 26 H 124/87 82 L 07/24/20 03:25 96 H 24 91 Laboratory Results 07/24/20 06:13 07/24/20 06:13 Diagnostic Findings Chest x-ray from this morning was reviewed. The chest tube is in the midlung zone with a small apical pneumothorax. There are persistent bilateral pulmonary infiltrates. PG Care Time/CCT Total # of Minutes Spent Total Time Spent with Patient: Total time spent is greater than 50% in coordination of care (as documented) at patient's floor/unit and/or counseling patient: Coding Level of Care Code 33086 Subseq Hosp Care Lvl 3 Diagnoses Pneumonia due to COVID-19 virus U07.1; J12.82 Hypoxia R09.02 Breath shortness R06.02 Lower extremity edema R60.0 Pneumothorax J93.9 Pneumomediastinum J98.2 ARDS (adult respiratory distress syndrome) J80
--- NOTE | 2020-07-24 16:01 | Palliative Care Progress Note ---
Date of Service July 24, 2020 Assessment & Plan (1) Palliative care encounter: Giovanni continues to have guarded prognosis. He was able to complete POA documentation today and to see his family for window visit. We discussed events over the weekend and how he is holding up emotionally. We discussed transition to more comfort directed approach. He acknowledges that his condition has not improved and is actually worse than it had been, however, he was boosted by family visit today and wants to continue with current treatment for now. We did discuss that if at any time he feels that he would want to shift focus of care, we would support that. His family has indicated that they support his decision regarding care. Admission and Anticipated Discharge Date Admission Date: July 14, 2020 Subjective Sleeping but easily arousable. Reports feeling less anxious and relieved to have completed POA documentation. Chest tube placed over the weekend for spontaneous pneumothorax. He c/o some pain at insertion site. He has been getting morphine prn which helps shortness of breath. Review of Systems Review of Systems: [place] Symptom Assessment Scale Pain 1/3 Dyspnea 2/3 Anxiety 1/3 Fatigue 2/3 Anorexia 2/3 Nausea 0/3 Drowsiness 1/3 Palliative Performance Score 30% Physical Exam Constitutional: + ill appearing; no acute distress ENMT: Mouth: + dry oral mucous membranes Respiratory: + uses accessory muscles high flow O2 Cardiovascular: Rate/Rhythm: + tachycardic Neurologic: awake; not confused Results & Data ([facility]) Vital Signs (Past 12 Hours) Vital Signs Temp Pulse Pulse Pulse Resp BP Pulse Ox 07/24/20 15:23 106 H 27 H 84 L 07/24/20 11:29 98.8 F 112 H 24 109/74 90 07/24/20 10:25 116 H 35 H 88 L 07/24/20 08:35 117 H 33 H 90 07/24/20 08:05 113 H 37 H 94 07/24/20 08:03 118 H 39 H 90 07/24/20 05:24 89 L 07/24/20 04:55 97.9 F 112 H 26 H 124/87 82 L PG Care Time/CCT Total # of Minutes Spent Total Time Spent with Patient: Total time spent is greater than 50% in coordination of care (as documented) at patient's floor/unit and/or counseling patient: total time spent 25 minutes with more than 50% of time spent on goals o f care Coding Level of Care Code 06611 Subseq Hosp Care Lvl 2 Diagnoses Palliative care encounter Z51.5
--- NOTE | 2020-07-24 23:21 | Hospitalist Progress Note ---
Date of Service July 24, 2020 Assessment & Plan (1) Pneumonia due to COVID-19 virus: (2) Hypoxia: Acute hypoxemic respiratory failure secondary to COVID-19 pneumonia progressive resp failure with ARDS due to COVID 19 infection developed rt sided spontaneous pneumothorax , with progression of size and pneumomediastinum and subcutaneous air due to poor lung compliance in setting of ARDS and requirement for positive pressure ,high flow 02 right sided chest tube placed by Gen surgery Patient remains tachypneic tachycardic and hypoxic Chest x-ray shows development of right sided pneumothorax again in spite of being on chest tube Overall prognosis remains very very poor Patient and family aware of poor prognosis ordered to keep NPO to prevent hypoxia , holding meds -Aspirin /statin /vitamin supplement Continue as needed Roxanol, intermittent IV morphine for pain and discomfort pt Presented on admission with cough, fever and SOB COVID-19 positive CXR moderate multifocal bilateral airspace opacities suggestive of an infectious process such as viral pneumonia completed 5 days of IV remdesivir/high dose of Iv dexamethasone has been on high , spon pneumothorax as above very poor prognosis Patient is DNR/DNI History of hypertension Patient is borderline hypotensive SBP in low 100 with worsening of respiratory failure All antihypertensives discontinued as respiratory status continues to decline /hypoxia with PO intake -all ma intenace meds: aspirin , statin ,vitamin supplements ordered to keep on hold receiving intermittent lasix to prevent pulmonary congestion due to COVID 19 infection Chronic kidney disease stage III Creatinine stable DVT px on Lovenox subq CODE STATUS DNR/DNI Overall prognosis remains guarded Contact. Patient's [place] over phone Admission and Anticipated Discharge Date Admission Date: July 14, 2020 Subjective Patient seen and examined. On high flow oxygen, remains tachypneic tachycardic, desaturation noted to late 80s, Overall prognosis remains poor Patient is very fatigued, lethargic open eyes briefly, offers no complaint other pain at the chest tube site, ordered for frequent dose of Roxanol, and IV morphine Review of Systems Review of Systems: Unobtainable due to reduced consciousness (Very lethargic/tired) Physical Exam Physical Exam: Physical exam: General: very frail ill appearing , elderly male, in moderate resp distress HEENT: PERRLA, EOMI, Heart: Regular S1-S2, Lungs: tachypneic , rt sided chest tube present , audible breath sound on rt apex Abdomen: Soft nontender, Extremity: cyanosis noted on tip of nose , extremities , worse with conversation Neuro: No focal neurological deficit /conversation difficult due to resp distress Psych: Alert awake / Results & Data Results & Data ([facility]) Vital Signs (Past 12 Hours) Vital Signs Temp Pulse Pulse Resp BP Pulse Ox 07/24/20 22:34 79 19 91 07/24/20 19:50 91 H 22 91 07/24/20 19:08 36.5 C 94 H 32 H 90/60 L 84 L 07/24/20 16:08 36.7 C 97 H 24 97/63 L 85 L 07/24/20 15:23 106 H 27 H 84 L 07/24/20 11:29 37.1 C 112 H 24 109/74 90
[2020-07-25] MEDS: POLYETHYLENE (MIRALAX) 17 GM PACK PO SCH (08:29)
[2020-07-25] MEDS: ENOXAPARIN INJ 40 MG/0.4 ML SYR SQ SCH ×2 (08:30→20:28)
[2020-07-25] MEDS: CHOLECALCIFEROL 1,000 UNITS 25 MCG TAB PO SCH (08:32)
[2020-07-25] MEDS: INSULIN ASPART 100 UNITS/ML 3 ML PEN SC SCH ×4 (08:35→20:28)
--- NOTE | 2020-07-25 09:10 | XRay Report ---
XR chest 1V portable HISTORY: 79 years-old Male rt sided pneumothorax , COVID 19 pneumonia follow-up study in a patient w ith pneumothorax and pneumonia COMPARISON: Chest radiograph 07/24/2020 TECHNIQUE: Portable AP view of the chest FINDINGS: Cardiac mediastinal and hilar silhouettes are unchanged. Right-sided chest tube distal tip projects o timothy the right lung base. Small right apical pneumothorax has decreased in size from comparison and no w with pleural separation 10 mm, previously 2.4 cm. Subcutaneous emphysema of the chest wall, and sup raclavicular distributions with pneumomediastinum redemonstrated. With progressively worsened multifo maxx airspace opacities. Small layering pleural effusions. Degenerative changes of the shoulders and s pine. IMPRESSION: 1. Right-sided chest tube in place with mildly decreased size of the small right apical pneumothorax, pleural separation of 1.0 cm. 2. Progressively worsened bilateral airspace opacities, left greater than right with small layering p leural effusions. 3. Subcutaneous emphysema with pneumomediastinum redemonstrated. ACT 112: Negative or not required by law. The above report was generated using voice recognition software. It may contain grammatical, syntax o r spelling errors. Electronically signed by: Marco A Browne M.D. 07/25/2020 9:08 AM
--- NOTE | 2020-07-25 12:06 | Palliative Care Progress Note ---
Date of Service July 25, 2020 Assessment & Plan (1) Palliative care encounter: I spoke with Giovanni about how he is holding up. He tells me that he's more tired today but "I want to beat this thing". We reviewed discussion last week about him not wanting intubation or vent support. He recalls and confirms this. Despite their own reservations, his family has stated that they would honor his wishes. We discussed his continued need for high flow oxygen without any significant progress over the last several days and concern that this may be as good as it gets for him. He understands this and said to me "I want you to be on my side". I explained that we are all on his side and hopeful that he can improved. However, over the next few days we will continue to talk about how he is doing while continuing current level of treatment. I assured him that we will be honest about his status and that we may face the difficult decision of whether to continue the high flow oxygen support if he does not improve. He is willing to take one day at a time. Called family to review. No answer. (2) Breath shortness: (3) ARDS (adult respiratory distress syndrome): (4) Pneumonia due to COVID-19 virus: Admission and Anticipated Discharge Date Admission Date: July 14, 2020 Subjective More weak today. Remains on high flow O2, 60LPM 100% FiO2. Feels short of breath with any exertion. O2 drops with repositioning. Review of Systems Review of Systems: [place] Symptom Assessment Scale Pain 0/3 Dyspnea 2/3 Anxiety 1/3 Fatigue 3/3 Nausea 0/3 Drowsiness 1/3 Palliative Performance Score 20% Physical Exam Constitutional: + ill appearing ENMT: Mouth: + dry oral mucous membranes Respiratory: + uses accessory muscles Cardiovascular: Rate/Rhythm: regular rate and regular rhythm Musculoskeletal: Extremities: + muscle atrophy Neurologic: not confused Results & Data ([facility]) Vital Signs (Past 12 Hours) Vital Signs Temp Pulse Pulse Resp BP BP Pulse Ox 07/25/20 11:37 99 H 27 H 87 L 07/25/20 08:00 77 07/25/20 07:44 78 21 93 07/25/20 07:20 97.9 F 76 19 88/63 L 94 07/25/20 03:54 82 18 89 L 07/25/20 03:53 97.7 F 80 20 91/65 L 92 07/25/20 00:34 94/68 L PG Care Time/CCT Total # of Minutes Spent Total Time Spent with Patient: Total time spent is greater than 50% in coordination of care (as documented) at patient's floor/unit and/or counseling patient: total time spent 35 minutes with more than 50% of time spent on goals of care, patient support and education Coding Level of Care Code 45001 Subseq Hosp Care Lvl 3 Diagnoses Palliative care encounter Z51.5 Breath shortness R06.02 ARDS (adult respiratory distress syndrome) J80 Pneumonia due to COVID-19 virus U07.1; J12.82
[2020-07-25] MEDS: MoRPHine SULFATE 5 MG/0.25 ML UDP PO PRN ×2 (16:23→19:23)
[2020-07-25] MEDS ORDERED: FUROSEMIDE 40 MG in SYRINGE 0 ML IV ONE (16:25)
[2020-07-25] MEDS ORDERED: LORazepam 0.5 MG/1 ML VIAL IV PRN (16:27)
[2020-07-25] MEDS ORDERED: POLYETHYLENE (MIRALAX) 17 GM PACK PO PRN (16:28)
[2020-07-25] MEDS ORDERED: guaiFENesin/CODEINE 100MG/10MG 5ML UDC PO PRN (16:29)
[2020-07-25] MEDS ORDERED: BENZONATATE 100 MG CAPSULE PO PRN (16:29)
[2020-07-25] MEDS ORDERED: FUROSEMIDE 40 MG/4 ML VIAL IV ONE (16:30)
--- NOTE | 2020-07-25 16:31 | Hospitalist Progress Note ---
Date of Service July 25, 2020 Assessment & Plan (1) Pneumonia due to COVID-19 virus: (2) Hypoxia: Acute hypoxemic respiratory failure secondary to COVID-19 pneumonia progressive resp failure with ARDS due to COVID 19 infection / due to poor lung compliance in setting of ARDS and requirement for positive pressure ,high flow 02 developed rt sided spontaneous pneumothorax , with progression of size and pneumomediastinum and subcutaneous air Status post right sided chest tube placement by Gen surgery Patient remains tachypneic tachycardic and hypoxic Chest x-ray shows development of right sided pneumothorax again in spite of having chest tube Overall prognosis remains very very poor Chest x-ray shows progression of ARDS /ordered 40 mg IV Lasix, Daily chest x-ray ordered Patient and family aware of poor prognosis For progressive hypoxia worsened get worse when trying to take p.o. meds, aspirin /statin /vitamin supplement ordered to keep on hold Continue pain control, supportive care on needed Roxanol, intermittent IV morphine for pain and discomfort Palliative care following, overall extremely poor prognosis- pt Presented on admission with cough, fever and SOB COVID-19 positive CXR moderate multifocal bilateral airspace opacities suggestive of an infecti ous process such as viral pneumonia completed 5 days of IV remdesivir/high dose of Iv dexamethasone has been on high , spon pneumothorax as above very poor prognosis Patient is DNR/DNI History of hypertension Patient is borderline hypotensive SBP in low 100 with worsening of respiratory failure All antihypertensives discontinued as respiratory status continues to decline /hypoxia with PO intake -all maintenace meds: aspirin , statin ,vitamin supplements ordered to keep on hold receiving intermittent lasix to prevent pulmonary congestion due to COVID 19 infection Chronic kidney disease stage III DVT px on Lovenox subq CODE STATUS DNR/DNI Prognosis is grim Patient's [place] updated over phone Admission and Anticipated Discharge Date Admission Date: July 14, 2020 Subjective Patient seen and examined. On high flow oxygen, remains tachypneic tachycardic, frequent desaturation noted with minimal movement and conversation. Very lethargic, opens eyes to voice, States he feels tired and wiped out, Main complaint is pain at right chest wall chest tube site Patient is ordered for frequent Roxanol and IV morphine, Patient requests to have pain medication more frequently, currently on every 1 hour prn p.o. Roxanol /IV morphine q2 hrs if pain not relieved with PO patient is updated pain medication frequency can be increased as needed to keep him pain-free/comfortable Patient is appreciative extremely poor prognosis , he is aware, hoping that he may feel little bit better in the coming days, wants to continue high flow O2 and current management, Review of Systems Respiratory: as per Subjective / HPI and + dyspnea Physical Exam Physical Exam: Physical exam: General: very frail ill appearing , elderly male, in moderate resp distress HEENT: PERRLA, EOMI, Heart: Regular S1-S2, Lungs: tachypneic , rt sided chest tube present , Abdomen: Soft nontender, Extremity: cyanosis noted on tip of nose , extremities , worse with conversation Neuro: No focal neurological deficit /conversation difficult due to resp distress Psych: Alert awake / Results & Data Results & Data ([facility]) Vital Signs (Past 12 Hours) Vital Signs Temp Pulse Pulse Resp BP Pulse Ox 07/25/20 15:40 117 H 24 85 L 07/25/20 15:39 37.0 C 103 H 26 H 101/72 90 07/25/20 11:59 36.8 C 95 H 34 H 139/95 90 07/25/20 11:37 99 H 27 H 87 L 07/25/20 08:00 77 07/25/20 07:44 78 21 93 07/25/20 07:20 36.6 C 76 19 88/63 L 94
[2020-07-25] MEDS ORDERED: bisacodyL 10 MG SUPP PR STA (20:48)
[2020-07-25] MEDS ORDERED: bisacodyL 5 MG TABEC PO ONE (20:49)
[2020-07-26] MEDS: MoRPHine SULFATE 5 MG/0.25 ML UDP PO PRN ×2 (01:39→05:25)
[2020-07-26] MEDS: MoRPHine SULFATE 2 MG/ML CARP IV PRN (02:41)
[2020-07-26 08:03] LABS: Creatinine Clr Calc Pharmacy 44.1 ml/min; Est GFR (African American) 48.7; Potassium 4.7 mmol/L (3.5-5.1)
[2020-07-26] MEDS: MoRPHine SULFATE 10 MG/0.5 ML UDP PO PRN (08:42)
[2020-07-26] MEDS: ENOXAPARIN INJ 40 MG/0.4 ML SYR SQ SCH ×2 (08:42→20:16)
[2020-07-26] MEDS: CHOLECALCIFEROL 1,000 UNITS 25 MCG TAB PO SCH (08:42)
[2020-07-26] MEDS: INSULIN ASPART 100 UNITS/ML 3 ML PEN SC SCH ×4 (08:50→22:27)
--- NOTE | 2020-07-26 09:03 | XRay Report ---
XR chest 1V portable CLINICAL HISTORY: resp failure /COVID 19 COMPARISON STUDY: Chest radiograph July 25, 2020. FINDINGS: Right chest tube is in place. A small right apical pneumothorax has increased in size since prior examination. There is no left pneumothorax. Pneumomediastinum is again noted. Subcutaneous gas within the neck and chest wall has slightly increased. Extensive bilateral airspace opacities persis t. IMPRESSION: 1. Increase in size of a small right pneumothorax. Right chest tube in place. 2. Increase in subcutaneous gas within the chest wall and neck. Persistent pneumomediastinum. 3. Persistent extensive bilateral airspace opacities suggestive of an infectious process. ACT 112: Negative or not required by law. Electronically signed by: Adrian Olson M.D. 07/26/2020 9:02 AM
--- NOTE | 2020-07-26 12:27 | Communication Note ---
Date of Service: July 26, 2020 Portable chest x-ray done today shows: 1. Increase in size of a small right pneumothorax. Right chest tube in place. 2. Increase in subcutaneous gas within the chest wall and neck. Persistent pneumomediastinum. 3. Persistent extensive bilateral airspace opacities suggestive of an infectious process. Patient continues to be very hypoxic on on high flow oxygen 60 mL/min, with desaturation noted with minimal activity, over all prognosis remains extremely poor, in spite of with right-sided chest tube, progression of pneumothorax, subcutaneous emphysema suggestive of worsening of ARDS, Patient may not be able to tolerate high flow O2, if the pneumothorax, and pneumomediastinum, subcutaneous emphysema continues to worsen: Chance of recovery, survival is minimal to 0. Palliative care has been following this patient, per Dr. Steele's note yesterday, patient still wants to continue on high flow O2 requests to keep him comfortable /pain free ( pain is mostly at the rt sided chest tube site ) Ordered for every hour as needed p.o. Roxanol, IV morphine q2 hrs Chest x-ray report updated to patient's eldest son Giovanni Flores Jr. phone number #[phone] Patient's , Giovanni, and 2 other sons( aJn and Abel ) all were updated at the same time over speaker phone . Family is very emotional, having hard time accepting the fact that there is no other treatment modality available to stop the lung damage, aware of the poor prognosis, son is very tearful, and asking if any IV meds or immunotherapy can be given to help the lung tissue recover , and give pt chance to survive I updated, as per current treatment and my medical knowledge there is none available Chance of survival is very unlikely Family requests an update from pulmonology, Dr. Lopez contacted, updated him about the conversation with family members: He agrees that pt's prognosis is grim , there is no treatment available to reverse the process at this stage He will call pt's son later today and update Dr. Krys Nash updated as well She is going to be the Hospitalist attending for Mr. Calderon from today and onward Extremely poor prognosis,very limited life expectancy . Patient is DNR/DNI Cleo Valerio MD
--- NOTE | 2020-07-26 15:24 | Pulmonology Progress Note ---
Date of Service July 26, 2020 Assessment & Plan (1) Pneumonia due to COVID-19 virus: Impression: 79-year-old male with a past medical history of hypertension, hyperlipidemia and BPH presenting to the hospital due to COVID-19 illness. His course has been complicated by development of pneumothorax pneumomediastinum and significant subcutaneous emphysema. Recommendations: 1. Acute hypoxic respiratory failure: Secondary to COVID-19. Patient completed a course of Decadron. There are no other adjunctive therapies at this point time which would offer the patient clinical improvement. Continued steroids may result in worsening of the pneumothorax.. 2. Spontaneous pneumothorax on the right: Underwent surgical chest tube placement on 07/22/2020. Size 20 Upper Sor[place] chest tube is currently in place. I will increase the suction to 40 cm of water. While the pneumothorax does appear slightly increased on the most current film, I do not think that is the course of his clinical deterioration and repositioning of the chest tube or placement of a new chest tube may result in more harm than good. At this point time I am unclear if serial chest x-rays are really offering the patient a clinical benefit as they appear to be causing the family and care team more distress and are not really changing management. The tube currently does not have an air leak and we could consider clamping it or placing it to waterseal however given the patient's tenuous circumstances, I think that is a hazardous proposition. While the subcutaneous emphysema does appear mildly increased, I would not recommend venting the skin at this point in time. 3. Recommend continued palliative care. I discussed with palliative care. The patient apparently continues to be optimistic about his ability to recover from this. He reiterates his desire to not pursue aggressive interventions such as mechanical ventilation which I would support. At the request of the hospitalist I called to update the family. Giovanni answered the phone but stated he had to go to the bank immediately and passed me off to his mother. She stated the family had done research on dexamethasone and wanted to know if we could give him this medication. I advised him that he had already received a full course of dexamethasone at this point in time. They were advised of the gravity of the situation. I advised him that I am not sure that this is survivable. He has reached a plateau at this point in time. He is currently maintaining oxygen saturations on as much noninvasive support as we can offer him. I am unclear if he will turn the corner and recover. There is certainly a possibility that he could deteriorate clinically and from this disease. Unfortunately, I have little else to offer the patient from a pulmonary standpoint at this point time other than palliative care. Pulmonary remains available to assist as needed however I am not sure I have much additionally to offer the patient at this point in time. (2) Hypoxia: (3) Breath shortness: (4) Lower extremity edema: (5) Pneumothorax: (6) Pneumomediastinum: (7) ARDS (adult respiratory distress syndrome): Admission and Anticipated Discharge Date Admission Date: July 14, 2020 Subjective Patient seen and examined. EMR reviewed. Discussed with admitting hospitalist. The patient reports that his breathing is doing okay. He satting 91% on 60 L high flow at 100%. There was concern about progression of his pneumothorax on the chest x-ray as well as the patient's failure to improve clinically. The patient did not report significant chest pain cough or sputum production. Review of Systems Review of Systems: Please refer to hospitalist note for details. No changes Physical Exam Neck: normal visual inspection Respiratory: + uses accessory muscles and + tachypneic Cardiovascular: Rate/Rhythm: regular rate and regular rhythm Heart Sounds: normal S1 and normal S2 Extremities: + edema Chest (Breasts): Additional Comments: Subcutaneous emphysematous changes are noted with crepitus. No tracheal deviation. No voice changes Gastrointestinal (Abdomen): normal bowel sounds, soft, nontender, no hepatosplenomegaly Musculoskeletal: no cyanosis or clubbing, extremities motor strength 5/5 Neurologic: PERRL, EOMI, accommodation nl, no face palsy, no dysarthria Psychiatric: A+Ox3, euthymic affect Results & Data Results & [facility] ([facility]) Vital Signs (Past 12 Hours) Vital Signs Temp Pulse Pulse Resp BP BP Pulse Ox 07/26/20 11:10 36.7 C 90 27 H 130/64 88 L 07/26/20 08:14 79 20 93 07/26/20 08:00 91 H 07/26/20 07:29 36.7 C 83 23 103/70 90 07/26/20 04:38 21 90 07/26/20 03:46 36.5 C 82 32 H 99/65 L 90 07/26/20 03:21 83 18 87 L Laboratory Results 07/24/20 06:13 07/26/20 06:19 Diagnostic Findings Chest x-ray from today was independently reviewed. The chest tube remains in the mid lung zone. There may have been a slight increase in the pneumothorax by a couple millimeters but it is certainly not significantly worse. He has persistent subcutaneous emphysema. PG Care Time/CCT Total # of Minutes Spent Total Time Spent with Patient: Total time spent is greater than 50% in coordination of care (as documented) at patient's floor/unit and/or counseling patient: Coding Level of Care Code 78724 Subseq Hosp Care Lvl 3 Diagnoses Pneumonia due to COVID-19 virus U07.1; J12.82 Hypoxia R09.02 Breath shortness R06.02 Lower extremity edema R60.0 Pneumothorax J93.9 Pneumomediastinum J98.2 ARDS (adult respiratory distress syndrome) J80 Time Spent (min) 35
--- NOTE | 2020-07-26 15:38 | Hospitalist Progress Note ---
Date of Service July 26, 2020 Assessment & Plan (1) Acute and chronic respiratory failure with hypoxia: Patient with COVID-19 pneumonia. He completed a course of Decadron and a 5-day course of remdesivir. Steroids have been stopped as it may result in worsening of the pneumothorax. Continue supportive care of Covid pneumonia with oxygen supplementation and palliative medications as needed. (2) ARDS (adult respiratory distress syndrome): On 07/19 patient's status was changed to ICU for worsening acute hypoxic respiratory failure secondary to COVID-19. His Decadron was increased per the ARDS trial results. His CODE STATUS was changed to DNR/DNI. (3) Pneumonia due to COVID-19 virus: Plan as above (4) Pneumothorax: On 07/22 he developed a spontaneous pneumothorax with a right tube thoracostomy placed by Dr. Sharma, general surgeon, at the bedside. Pulmonology is checking the tube and is confirmed there is no air leak, although subcutaneous emphysema appears to be worsening and pneumothorax appears to be somewhat worse. No utility with daily chest xrays, repositioning the chest tube or skin venting at this time. (5) Hypoxia: as above. (6) Pneumomediastinum: chest tube in place. cont current therapies. (7) Hypertension: all antihypertensives have been stopped for borderline low BP. (8) CKD (chronic kidney disease), stage III: (9) DVT prophylaxis: Lovenox BID DNR/DNI Dispo-uncertain at this time. Krys Nash DO [facility] Hospitalist Admission and Anticipated Discharge Date Admission Date: July 14, 2020 Subjective 79 yo M with COVID pneumonia, complicated by development of pneumothorax, pneumomediastinum and significant subcutaneous emphysema. I have asked the patient how he is doing today, and he replied, "taking it 1 day at a time." He denies any significant pain, and appears to be somewhat struggling to answer questions as a result of shortness of breath/intermittent hypoxia. Therefore, review of systems was somewhat limited. Per nursing, he is tolerating his boost supplementation. Review of Systems Review of Systems: All systems reviewed & are unremarkable except as noted in Subjective Physical Exam Physical Exam: CONSTITUTIONAL: WNWD, vitals as above, ill-appearing EYES: normal conjunctivae, no scleral icterus ENT: external ear and nose normal, MMM, significant subcutaneous emphysema present on the right supraclavicular space. RESPIRATORY: diminished breath sounds throughout, intermittent crackles, no rales or wheezes, some increased respiratory effort on max supplemental oxygen therapy. CARDIOVASCULAR: regular rate and rhythm, S1 and 2 heard without murmurs, gallops or rubs, no JVD, no peripheral edema, no carotid bruits CHEST: right chest tube in place. GASTROINTESTINAL: soft, nontender, nondistended. MUSCULOSKELETAL: generalized weakness. SKIN: warm and dry NEUROLOGIC: CN 2-12 grossly intact, normal cognition, normal speech, no tremor. No gross focal deficits. Exam is limited 2/2 illness. PSYCHIATRIC: alert cooperative and oriented Results & Data Results & Data ([facility]) Vital Signs (Past 12 Hours) Vital Signs Temp Pulse Pulse Resp BP BP Pulse Ox 07/26/20 15:36 95 H 07/26/20 15:29 91 H 93 07/26/20 11:10 36.7 C 90 27 H 130/64 88 L 07/26/20 08:14 79 20 93 07/26/20 08:00 91 H 07/26/20 07:29 36.7 C 83 23 103/70 90 07/26/20 04:38 21 90 07/26/20 03:46 36.5 C 82 32 H 99/65 L 90 Laboratory Results [facility] 07/26/20 06:19 Sodium 129 L Potassium 4.7 Chloride 95 L Carbon Dioxide 26 BUN 77 H Creatinine 1.53 H Glucose 114 H Calcium 9.0 Medications Administered Current Inpatient Medications Acetaminophen (Acetaminophen 325 Mg Tab) 650 mg PO Q4H PRN PRN Reason: Pain or Fever Stop: 08/13/20 21:54 Aspirin (Aspirin 81 Mg Ectab) 81 mg PO DAILY [facility] Stop: 08/14/20 08:59 Last Admin: 07/23/20 08:21 Dose: 81 mg Documented by: Benzonatate (Benzonatate 100 Mg Capsule) 100 mg PO TID PRN PRN Reason: cough Stop: 08/20/20 13:59 Dextrose (Dextrose 50% 50 Ml Syringe) 25 - 50 ml IV UD PRN; Protocol PRN Reason: Hypoglycemia Protocol Stop: 08/19/20 16:14 Enoxaparin Sodium (Enoxaparin Inj 40 Mg/0.4 Ml Syr) 40 mg SQ BID [facility]IN Stop: 08/15/20 20:59 Last Admin: 07/26/20 08:42 Dose: 40 mg Documented by: Glucagon (Glucagon For Inj 1 Mg Vial) 1 mg IM UD PRN; Protocol PRN Reason: Hypoglycemia Protocol Stop: 08/19/20 16:14 Glucose (Glucose 40% Gel 15 Gm Tube) 15 - 30 gm PO UD PRN; Protocol PRN Reason: Hypoglycemia Protocol Stop: 08/19/20 16:14 Glucose (Glucose 10 Tabs/Tube) 4 - 8 tabs PO UD PRN; Protocol PRN Reason: Hypoglycemia Protocol Stop: 08/19/20 16:14 Guaifenesin/Codeine Phosphate (Guaifenesin/Codeine 100mg/10mg 5ml Udc) 5 ml PO Q6H PRN PRN Reason: Cough Stop: 08/24/20 16:28 Lorazepam (Ativan) 0.5 mg in 1 mls @ 1 mls/min IV Q4H PRN PRN Reason: Anxiety Stop: 08/24/20 16:26 Insulin Aspart (Insulin Aspart 100 Units/Ml 3 Ml Pen) 0 units SC ACHS MARIN Stop: 08/19/20 16:29 Last Admin: 07/26/20 12:51 Dose: Not Given Documented by: Levalbuterol HCl (Levalbuterol Tartrate 15 Gm Hfa.Aer.Ad) 2 puffs INH Q4H PRN PRN Reason: sob/wheeze Stop: 08/18/20 06:59 Last Admin: 07/19/20 08:08 Dose: 2 puffs Documented by: Miscellaneous (Carbohydrates For Hypoglycemia ) 15 - 30 gm PO UD PRN PRN Reason: Hypoglycemia Treatment Stop: 08/19/20 16:14 Morphine Sulfate (Morphine Sulfate 2 Mg/Ml Carp) 2 mg IV Q2H PRN PRN Reason: Pain Stop: 08/06/20 10:25 Last Admin: 07/26/20 02:41 Dose: 2 mg Documented by: Morphine Sulfate (Morphine Sulfate 10 Mg/0.5 Ml Udp) 10 mg PO Q1H PRN PRN Reason: Pain Stop: 08/09/20 05:44 Last Admin: 07/26/20 08:42 Dose: 10 mg Documented by: Polyethylene Glycol (Polyethylene (Miralax) 17 Gm Pack) 17 gm PO BID PRN PRN Reason: CONSTIPATION Stop: 08/20/20 08:59 Senna/Docusate Sodium (Docusate Sodium/Senna 50/8.6mg Tab) 1 tab PO QAM MARIN Stop: 08/16/20 20:54 Last Admin: 07/23/20 08:19 Dose: Not Given Documented by: Simvastatin (Simvastatin 40 Mg Tab) 40 mg PO HS [facility] Stop: 08/13/20 21:54 Last Admin: 07/22/20 20:34 Dose: 40 mg Documented by: Vitamin D (Cholecalciferol 1,000 Units 25 Mcg Tab) 1,000 units PO DAILY [facility] Stop: 08/14/20 08:59 Last Admin: 07/26/20 08:42 Dose: Not Given Documented by:
--- NOTE | 2020-07-26 21:42 | Communication Note ---
Date of Service: July 26, 2020 Notified by RN of minimal bloody drainage from right chest tube and small amount of tarry stool. No abdominal pain complaints. AP UGI B IV PPI Hold Lovenox for now SCDs for DVT prophylaxis interim Defer decision regarding GI consultation for UGI B to AM provider given palliative care discussions as per AM provider notes .
[2020-07-26] MEDS ORDERED: SODIUM CHLORIDE 0.9% 1000ML 1,000 ML IV SCH (21:45)
[2020-07-26] MEDS ORDERED: PANTOprazole 80 MG in DEXTROSE 5% 100 ML IV ONE (22:00)
[2020-07-26 22:41] LABS: Eosinophils # (auto) 0.21 K/uL (0-0.5); Eosinophils % (auto) 1.3 %; Hematocrit (blood only) 43.3 % (42-52); Hemoglobin 15.3 g/dL (14.0-18.0); Immature Granulocytes # (auto) 0.09 K/uL (0.00-0.02); Immature Granulocytes % (auto) 0.5 %; Lymphocytes # (auto) 0.52 K/uL (1.2-3.4); Lymphocytes % (auto) 3.2 %; Mean Corpuscular Hemoglobin 30.8 pg (25-34); Mean Corpuscular Hgb Conc 35.3 g/dL (32-36); Mean Corpuscular Volume 87.1 fL (80-100); Mean Platelet Volume 10.7 fL (7.4-10.4); Monocytes # (auto) 0.23 K/uL (0.11-0.59); Monocytes % (auto) 1.4 %; Neutrophils # (auto) 15.35 K/uL (1.4-6.5); Neutrophils % (auto) 93.6 %; Platelet Count 401 K/uL (130-400); RDW Coefficient of Variation 14.1 % (11.5-14.5); RDW Standard Deviation 44.9 fL (36.4-46.3); Red Blood Count 4.97 M/uL (4.7-6.1)
[2020-07-27] MEDS: PANTOprazole 40 MG in DEXTROSE 5% 100 ML IV SCH ×4 (00:18→16:57)
[2020-07-27] MEDS: MoRPHine SULFATE 2 MG/ML CARP IV PRN (04:00)
[2020-07-27 06:34] LABS: Eosinophils # (auto) 0.24 K/uL (0-0.5); Eosinophils % (auto) 1.8 %; Hematocrit (blood only) 42.1 % (42-52); Hemoglobin 14.5 g/dL (14.0-18.0); Immature Granulocytes # (auto) 0.08 K/uL (0.00-0.02); Immature Granulocytes % (auto) 0.6 %; Lymphocytes # (auto) 0.44 K/uL (1.2-3.4); Lymphocytes % (auto) 3.2 %; Mean Corpuscular Hemoglobin 30.3 pg (25-34); Mean Corpuscular Hgb Conc 34.4 g/dL (32-36); Mean Corpuscular Volume 87.9 fL (80-100); Mean Platelet Volume 11.1 fL (7.4-10.4); Monocytes # (auto) 0.33 K/uL (0.11-0.59); Monocytes % (auto) 2.4 %; Neutrophils # (auto) 12.51 K/uL (1.4-6.5); Platelet Count 354 K/uL (130-400); RDW Coefficient of Variation 14.1 % (11.5-14.5); RDW Standard Deviation 45.6 fL (36.4-46.3); Red Blood Count 4.79 M/uL (4.7-6.1)
[2020-07-27 07:20] LABS: Calcium 8.7 mg/dl (8.5-10.1); Creatinine Clr Calc Pharmacy 44.1 ml/min; Est GFR (African American) 48.3; Est GFR (Non-African American) 41.7; Potassium 4.9 mmol/L (3.5-5.1)
[2020-07-27] MEDS: CHOLECALCIFEROL 1,000 UNITS 25 MCG TAB PO SCH (08:35)
--- NOTE | 2020-07-27 08:53 | XRay Report ---
XR chest 1V portable HISTORY: 79 years-old Male resp failure /COVID 19 acute respiratory failure COMPARISON: Chest radiograph 07/26/2020 TECHNIQUE: Portable AP view of the chest FINDINGS: Cardiac mediastinal and hilar silhouettes are unchanged. Mildly decreased size of the right apical pn eumothorax, now with pleural separation of 9 mm, previously 1.5 cm. Pneumomediastinum with subcutaneo us emphysema redemonstrated. The subcutaneous gas may have mildly increased from comparison. Unchange d positioning of the right basilar chest tube. Extensive bilateral airspace opacities are generally s table. No large pleural effusion. IMPRESSION: 1. Mildly decreased size of the small right apical pneumothorax. Unchanged positioning of the right b asilar chest tube. 2. Pneumomediastinum with subcutaneous emphysema redemonstrated. 3. Extensive bilateral airspace opacities are unchanged suggestive of multifocal pneumonia. ACT 112: Negative or not required by law. The above report was generated using voice recognition software. It may contain grammatical, syntax o r spelling errors. Electronically signed by: Shady Browne M.D. 07/27/2020 8:52 AM
[2020-07-27] MEDS: INSULIN ASPART 100 UNITS/ML 3 ML PEN SC SCH ×4 (09:19→21:14)
--- NOTE | 2020-07-27 10:55 | Gastrointestinal Consultation ---
Date of Consultation July 27, 2020 Assessment & Plan (1) Melena: Based on blood indices remaining stable and minimal evidence of gross GI bleeding, this likely represents mild, low grade diffuse gastritis or similar - at this point not a significant GI bleed, so would defer endoscopy at this p oint. His BUN is elevated which is concerning but there is also a compensatory rise in the creatinine. However, if he experiences a significant drop in Hb/Hct and significant gross GI bleeding, then we would reconsider. Agree with having PPI on board - though if no drop in Hb/Hct and no obvious gross bleeding by tomorrow morning then BID PPI should be adequate. Present on Admission?: Yes History of Present Illness Reason for Consultation: Tarry BMs on BID Lovenox Requesting Physician: Dr. Nash Attending Physician: Krys Nash, DO History of Present Illness Mr. Giovanni Flores is an 78 yr old male pt of Dr. Bragg with a hx of HTN, Hyperlipidemia, BPH, CKD3 who was admitted for COVID pneumonia on 07/14/20. GI is consulted for taryanet BMs on Lovenox. He is also on low dose daily aspirin and was tx with steroids. Hb was 13.8 on arrival and is 14.5 this morning. He has not received blood transfusions during this admission. I spoke with the pt's current nurse who has not evidenced any gross GI bleeding today. The concern for melena is based on binder fixer report to day shift nurse that there was a smear of incontinence and it appeared dark. Attg add: Chart reviewed - Pt with COVID pneumonia on HFNC with borderline sats, h/o PTX, on ac now with report of dark stool without evidence of hgb drop. A/P: No evidence of clin sig GIB, with stable hgb. OK to cont anticoag if indicated, follow hgb daily, IV BID PPI. No need for EGD at this time; of note, he is at high risk for anesthesia and likely would require intubation if this is required. Please call with questions. Allergies Allergy/AdvReac Type Severity Reaction Status Date / Time pollen extracts Allergy Intermediate "Environmental" Verified 07/14/20 21:57 -- runny nose, sneezing Home Medications Medication Instructions Recorded Confirmed Type cholecalciferol (vitamin D3) 25 1,000 unit PO DAILY 11/22/19 07/14/20 History mcg (1,000 unit) tablet coQ10 (ubiquinol) 100 mg capsule 100 mg PO DAILY 11/22/19 07/14/20 History lisinopril 10 mg tablet 10 mg PO DAILY 11/22/19 07/14/20 History simvastatin 40 mg tablet 40 mg PO HS 11/22/19 07/14/20 History tadalafil 20 mg tablet 10 - 20 mg PO DIRECTED PRN 11/22/19 07/14/20 History aspirin 81 mg PO DAILY 07/14/20 07/14/20 History dextromethorphan-guaifenesin 10 ml PO DIRECTED PRN 07/14/20 07/14/20 History [Delsym Cough-Chest Congest DM] tamsulosin 0.8 mg PO DAILY 07/14/20 07/14/20 History Patient History Medical History (Updated 07/27/20 @ 12:34 by HANANE Lentz) ARDS (adult respiratory distress syndrome) Hematuria Lower extremity edema No pertinent past medical history Pneumomediastinum Pneumothorax Prostate cancer screening encounter, options and risks discussed Surgical History (Updated 07/24/20 @ 11:15 by Candida Newman RN) No pertinent past surgical history (07/22/20) S/P thoracostomy tube placement right tube thoracostomy Dr. Sharma Family History Brother Diabetes Social History Smoking Status: Former smoker Tobacco Type: Cigarettes Hx Alcohol Use: No Hx Substance Use: No Preferred Language: Sami Communication Ability: Effective National Coverage Specialist Required: No Beliefs That Will Affect Care: None marital status: Current Living Situation: Spouse and Family Feels Safe at Home: Yes Safety Concerns: Feels Safe At This Time Assistive Devices: Glasses and Oxygen - Continuous Physical Exam Physical Exam: deferred as active COVID patient Results & Data ([facility]) Vital Signs (Past 12 Hours) Vital Signs Temp Pulse Resp BP Pulse Ox 07/27/20 07:33 36.6 C 82 20 105/60 92 07/27/20 07:24 80 20 91 07/27/20 03:55 36.4 C L 75 20 115/71 89 L 07/27/20 01:40 75 20 94 07/26/20 23:27 37.0 C 92 H 20 115/71 85 L Laboratory Results WBC 13.6, Hb 14.5, Hct 42.1, Plts 354, Na 129, K 4.9, BUN 80, Cr 1.54. Diagnostic Findings CXR 07/27/20: 1. Mildly decreased size of the small right apical pneumothorax. Unchanged positioning of the right basilar chest tube. 2. Pneumomediastinum with subcutaneous emphysema redemonstrated. 3. Extensive bilateral airspace opacities are unchanged suggestive of multifocal pneumonia.
[2020-07-27 13:09] LABS: Hematocrit (blood only) 42.6 % (42-52); Hemoglobin 14.4 g/dL (14.0-18.0)
--- NOTE | 2020-07-27 15:24 | Pulmonology Progress Note ---
Date of Service July 27, 2020 Assessment & Plan (1) Pneumonia due to COVID-19 virus: Impression: 79-year-old male with a past medical history of hypertension, hyperlipidemia and BPH presenting to the hospital due to COVID-19 illness. His course has been complicated by development of pneumothorax pneumomediastinum and significant subcutaneous emphysema. Recommendations: 1. Acute hypoxic respiratory failure: Secondary to COVID-19. Patient completed a course of Decadron. There are no other adjunctive therapies at this point time which would offer the patient clinical improvement. Continued steroids may result in worsening of the pneumothorax.. 2. Spontaneous pneumothorax on the right: Underwent surgical chest tube placement on 07/22/2020. Size 20 Chinese chest tube is currently in place. Pneumothorax on chest x-ray appears stable to slightly decreased in size. Would continue the tube for now although it appears to be migrating and is certainly at risk of coming out of the chest. Replacement of the tube or redirection in the tube I think may result in clinical worsening of the patient so I would hold off for now. We could consider clamping it to see whether or not the lung would remain up however that does pose the patient at risk for clinical deterioration and given his tenuous respiratory status, I think I would hold off for now. 3. Additional recommendations per palliative care and the primary hospitalist service Pulmonary will continue to follow at a distance. Please contact if we can be of more urgent assistance (2) Hypoxia: (3) Breath shortness: (4) Lower extremity edema: (5) Pneumothorax: (6) Pneumomediastinum: (7) ARDS (adult respiratory distress syndrome): Admission and Anticipated Discharge Date Admission Date: July 14, 2020 Subjective Chart reviewed. Deferred seeing the patient independently to limit foot traffic in the Covid unit. Please refer to hospitalist note for details Review of Systems Review of Systems: Deferred to hospitalist Physical Exam Physical Exam: Exam deferred Results & Data Results & Data ([facility]) Vital Signs (Past 12 Hours) Vital Signs Temp Pulse Resp BP Pulse Ox 07/27/20 11:48 36.6 C 75 22 105/62 91 07/27/20 11:30 76 22 91 07/27/20 07:33 36.6 C 82 20 105/60 92 07/27/20 07:24 80 20 91 07/27/20 03:55 36.4 C L 75 20 115/71 89 L Diagnostic Findings Chest x-ray from this morning was reviewed. There are diffuse parenchymal opacities. The chest tube remains in the lower right hemithorax. The pneumothorax appears slightly smaller. Subcutaneous emphysema is unchanged. PG Care Time/CCT Total # of Minutes Spent Total Time Spent with Patient: Total time spent is greater than 50% in coordination of care (as documented) at patient's floor/unit and/or counseling patient: Coding Level of Care Code 12332 Subseq Hosp Care Lvl 2 Diagnoses Pneumonia due to COVID-19 virus U07.1; J12.82 Hypoxia R09.02 Breath shortness R06.02 Lower extremity edema R60.0 Pneumothorax J93.9 Pneumomediastinum J98.2 ARDS (adult respiratory distress syndrome) J80 Time Spent (min) 22
[2020-07-27] MEDS ORDERED: FUROSEMIDE 40 MG in SYRINGE 0 ML IV ONE (17:30)
[2020-07-27] MEDS ORDERED: FUROSEMIDE 40 MG/4 ML VIAL IV SCH (17:30)
--- NOTE | 2020-07-27 19:35 | Hospitalist Progress Note ---
Date of Service July 27, 2020 Assessment & Plan (1) Acute and chronic respiratory failure with hypoxia: Patient with COVID-19 pneumonia. He completed a course of Decadron and a 5-day course of remdesivir. Steroids have been stopped as it may result in worsening of the pneumothorax. Continue supportive care of Covid pneumonia with oxygen supplementation and palliative medications as needed. Despite slightly elevated creatinine today on labs, breathing status is not much improved. Giving diuretic trial this evening. BMP in am. (2) ARDS (adult respiratory distress syndrome): On 07/19 patient's status was changed to ICU for worsening acute hypoxic respiratory failure secondary to COVID-19. His Decadron was increased per the ARDS trial results. His CODE STATUS was changed to DNR/DNI. (3) Pneumonia due to COVID-19 virus: Plan as above. Patient was placed on full dose Lovenox. With some concern for ?blackish stool, although not persistent this morning and bloody drainage in the chest tube will decrease to DVT prophylaxis dose. (4) Pneumothorax: On 07/22 he developed a spontaneous pneumothorax with a right tube thoracostomy placed by Dr. Sharma, general surgeon, at the bedside. There is no evidence of air leak. PTX is stable to slightly decreased on CXR this morning. Subcutaneous emphysema present. No utility at skin venting at this ti me. Serosanguinous drainage in tube. (5) Hypoxia: as above. (6) Pneumomediastinum: chest tube in place. cont current therapies. (7) Hypertension: all antihypertensives have been stopped for borderline low BP. (8) CKD (chronic kidney disease), stage III: at baseline 1.3-1.6 (9) DVT prophylaxis: Lovenox 40mg daily DNR/DNI Dispo-uncertain at this time. Poor prognosis. Krys Nash DO [facility] Hospitalist Admission and Anticipated Discharge Date Admission Date: July 14, 2020 Subjective 79 yo M with COVID pneumonia, complicated by development of pneumothorax, pneumomediastinum and significant subcutaneous emphysema. Throughout the day the patient has maintained an oxygen saturation in the low 90s on 60 L/min, 100% high flow nasal cannula. With any movement or talking he will desaturate into the mid 80s and have a prolonged recovery period. He is oriented and asks why his body is still holding on. We discussed the situation in detail so he could understand it. We discussed the possibility of diuretic therapy, and he was open to trying this. He denies any pain, fevers, cough. His main issue is air hunger. Of note, overnight nurse noted some questionable black tarry stool. Patient had a normal bowel movement today without evidence of blood. PPI drip and IV fluids were stopped. Discussed the case peripherally with GI who cannot do any procedure at this point with compromised pulmonary status. Opted for PPI twice daily at this time. Patient also has notably had serosanguineous drainage from his chest tube with very little output since when this was placed several days ago. There is no overt bleeding and the chest x- ray appeared to improve slightly this morning. Spoke with family by phone this evening-35 minutes discussing current issues, care plan and prognosis. All questions answered. Review of Systems Review of Systems: All systems reviewed & are unremarkable except as noted in Subjective Physical Exam Physical Exam: CONSTITUTIONAL: WNWD, vitals as above, ill-appearing EYES: normal conjunctivae, no scleral icterus ENT: external ear and nose normal, MMM, significant subcutaneous emphysema present on the right supraclavicular space. RESPIRATORY: diminished breath sounds throughout, intermittent crackles, no rales or wheezes, some increased respiratory effort on max supplemental oxygen therapy. CARDIOVASCULAR: regular rate and rhythm, S1 and 2 heard without murmurs, gallops or rubs, no JVD, no peripheral edema CHEST: right chest tube in place. GASTROINTESTINAL: soft, nontender, nondistended. MUSCULOSKELETAL: generalized weakness. SKIN: warm and dry NEUROLOGIC: CN 2-12 grossly intact, normal cognition, normal speech, no tremor. No gross focal deficits. Exam is limited 2/2 illness. PSYCHIATRIC: alert cooperative and oriented Results & Data Results & Data ([facility]) Vital Signs (Past 12 Hours) Vital Signs Temp Pulse Resp BP Pulse Ox 07/27/20 19:16 98 H 21 86 L 07/27/20 16:16 36.8 C 85 20 133/68 89 L 07/27/20 15:21 86 22 91 07/27/20 11:48 36.6 C 75 22 105/62 91 07/27/20 11:30 76 22 91 07/27/20 07:33 36.6 C 82 20 105/60 92 07/27/20 07:24 80 20 91 Laboratory Results Short CBC 07/26/20 07/27/20 07/27/20 Range/Units 22:24 05:49 12:48 WBC 16.40 H 13.60 H (4.8-10.8) K/uL Hgb 15.3 14.5 14.4 (14.0-18.0) g/dL Hct 43.3 42.1 42.6 (42-52) % Plt Count 401 H 354 (130-400) K/uL BMP 07/27/20 05:49 Sodium 129 L Potassium 4.9 Chloride 95 L Carbon Dioxide 27 BUN 80 H Creatinine 1.54 H Glucose 104 H Calcium 8.7 Medications Administered Current Inpatient Medications Acetaminophen (Acetaminophen 325 Mg Tab) 650 mg PO Q4H PRN PRN Reason: Pain or Fever Stop: 08/13/20 21:54 Aspirin (Aspirin 81 Mg Ectab) 81 mg PO DAILY MARIN Stop: 08/14/20 08:59 Last Admin: 07/23/20 08:21 Dose: 81 mg Documented by: Benzonatate (Benzonatate 100 Mg Capsule) 100 mg PO TID PRN PRN Reason: cough Stop: 08/20/20 13:59 Dextrose (Dextrose 50% 50 Ml Syringe) 25 - 50 ml IV UD PRN; Protocol PRN Reason: Hypoglycemia Protocol Stop: 08/19/20 16:14 Enoxaparin Sodium (Enoxaparin Inj 40 Mg/0.4 Ml Syr) 40 mg SQ BID MARIN Stop: 08/15/20 20:59 Last Admin: 07/26/20 20:16 Dose: 40 mg Documented by: Glucagon (Glucagon For Inj 1 Mg Vial) 1 mg IM UD PRN; Protocol PRN Reason: Hypoglycemia Protocol Stop: 08/19/20 16:14 Glucose (Glucose 40% Gel 15 Gm Tube) 15 - 30 gm PO UD PRN; Protocol PRN Reason: Hypoglycemia Protocol Stop: 08/19/20 16:14 Glucose (Glucose 10 Tabs/Tube) 4 - 8 tabs PO UD PRN; Protocol PRN Reason: Hypoglycemia Protocol Stop: 08/19/20 16:14 Guaifenesin/Codeine Phosphate (Guaifenesin/Codeine 100mg/10mg 5ml Udc) 5 ml PO Q6H PRN PRN Reason: Cough Stop: 08/24/20 16:28 Lorazepam (Ativan) 0.5 mg in 1 mls @ 1 mls/min IV Q4H PRN PRN Reason: Anxiety Stop: 08/24/20 16:26 Insulin Aspart (Insulin Aspart 100 Units/Ml 3 Ml Pen) 0 units SC ACHS [facility] Stop: 08/19/20 16:29 Last Admin: 07/27/20 17:51 Dose: Not Given Documented by: Levalbuterol HCl (Levalbuterol Tartrate 15 Gm Hfa.Aer.Ad) 2 puffs INH Q4H PRN PRN Reason: sob/wheeze Stop: 08/18/20 06:59 Last Admin: 07/19/20 08:08 Dose: 2 puffs Documented by: Miscellaneous (Carbohydrates For Hypoglycemia ) 15 - 30 gm PO UD PRN PRN Reason: Hypoglycemia Treatment Stop: 08/19/20 16:14 Morphine Sulfate (Morphine Sulfate 2 Mg/Ml Carp) 2 mg IV Q2H PRN PRN Reason: Pain Stop: 08/06/20 10:25 Last Admin: 07/27/20 04:00 Dose: 2 mg Documented by: Morphine Sulfate (Morphine Sulfate 10 Mg/0.5 Ml Udp) 10 mg PO Q1H PRN PRN Reason: Pain Stop: 08/09/20 05:44 Last Admin: 07/26/20 08:42 Dose: 10 mg Documented by: Pantoprazole Sodium (Pantoprazole 40 Mg Tab) 40 mg PO BID [facility] Stop: 08/26/20 20:59 Polyethylene Glycol (Polyethylene (Miralax) 17 Gm Pack) 17 gm PO BID PRN PRN Reason: CONSTIPATION Stop: 08/20/20 08:59 Senna/Docusate Sodium (Docusate Sodium/Senna 50/8.6mg Tab) 1 tab PO QAM MARIN Stop: 08/16/20 20:54 Last Admin: 07/23/20 08:19 Dose: Not Given Documented by: Simvastatin (Simvastatin 40 Mg Tab) 40 mg PO HS [facility] Stop: 08/13/20 21:54 Last Admin: 07/22/20 20:34 Dose: 40 mg Documented by: Vitamin D (Cholecalciferol 1,000 Units 25 Mcg Tab) 1,000 units PO DAILY MARIN Stop: 08/14/20 08:59 Last Admin: 07/27/20 08:35 Dose: 1,000 units Documented by:
[2020-07-27] MEDS: ASCORBIC ACID 500 MG TAB PO SCH (21:54)
[2020-07-27] MEDS: PANTOprazole 40 MG TAB PO SCH (21:55)
[2020-07-28] MEDS: MoRPHine SULFATE 2 MG/ML CARP IV PRN ×5 (00:10→20:16)
[2020-07-28 07:16] LABS: Hematocrit (blood only) 41.6 % (42-52); Hemoglobin 14.3 g/dL (14.0-18.0); Mean Corpuscular Hemoglobin 30.2 pg (25-34); Mean Corpuscular Hgb Conc 34.4 g/dL (32-36); Mean Corpuscular Volume 87.9 fL (80-100); Mean Platelet Volume 11.1 fL (7.4-10.4); Platelet Count 406 K/uL (130-400); RDW Standard Deviation 45.1 fL (36.4-46.3); Red Blood Count 4.73 M/uL (4.7-6.1); White Blood Count 13.23 K/uL (4.8-10.8)
[2020-07-28 07:49] LABS: BUN Creatinine Ratio 40.2 (10-20); Calcium 8.4 mg/dl (8.5-10.1); Creatinine Clr Calc Pharmacy 45.4 ml/min; Est GFR (African American) 56.2; Est GFR (Non-African American) 48.5; Potassium 4.3 mmol/L (3.5-5.1)
[2020-07-28] MEDS ORDERED: CHOLECALCIFEROL 1,000 UNITS 25 MCG TAB PO SCH (09:00)
[2020-07-28] MEDS: CHOLECALCIFEROL 1,000 UNITS 25 MCG TAB PO SCH (09:10)
[2020-07-28] MEDS: ZINC SULFATE 220 MG CAPSULE PO SCH (09:10)
[2020-07-28] MEDS: ASCORBIC ACID 500 MG TAB PO SCH ×2 (09:10→20:09)
[2020-07-28] MEDS: PANTOprazole 40 MG TAB PO SCH ×2 (09:10→20:09)
[2020-07-28] MEDS: DOCUSATE SODIUM/SENNA 50/8.6MG TAB PO SCH (09:10)
[2020-07-28] MEDS: INSULIN ASPART 100 UNITS/ML 3 ML PEN SC SCH ×5 (09:20→21:00)
--- NOTE | 2020-07-28 11:05 | XRay Report ---
XR chest 1V portable HISTORY: 79 years-old Male R PTX s/p chest tube, monitor progression follow-up study in a patient wi th right-sided pneumothorax COMPARISON: Chest radiograph 07/27/2020 TECHNIQUE: Portable AP view of the chest FINDINGS: Cardiac mediastinal and hilar silhouettes are unchanged. Unchanged small right apical pneumothorax wi th pleural separation of 10 mm. Stable positioning of the right lung base chest tube. Subcutaneous em physema with pneumomediastinum. Extensive bilateral airspace opacities are unchanged. IMPRESSION: 1. Unchanged positioning of the right lung base chest tube with stable small right apical pneumothora x. 2. Subcutaneous emphysema and pneumomediastinum redemonstrated. 3. Extensive bilateral airspace opacities are unchanged. ACT 112: Negative or not required by law. The above report was generated using voice recognition software. It may contain grammatical, syntax o r spelling errors. Electronically signed by: Shady Browne M.D. 07/28/2020 11:03 AM
--- NOTE | 2020-07-28 15:26 | Hospitalist Progress Note ---
Date of Service July 28, 2020 Assessment & Plan (1) Acute and chronic respiratory failure with hypoxia: Patient with COVID-19 pneumonia. He completed a course of Decadron and a 5-day course of remdesivir. Steroids have been stopped as it may result in worsening of the pneumothorax. Continue supportive care of Covid pneumonia with oxygen supplementation and palliative medications as needed. Diuretic trial with net 3L out overnight. No significant improvement in breathing yet but he is not worse today. CXR reveals no real changes. Cont current therapies including scheduled furosemide, (2) ARDS (adult respiratory distress syndrome): On 07/19 patient's status was changed to ICU for worsening acute hypoxic respiratory failure secondary to COVID-19. His Decadron was increased per the ARDS trial results. His CODE STATUS was changed to DNR/DNI. Off steroids now. (3) Pneumonia due to COVID-19 virus: Plan as above. Patient was placed on full dose Lovenox, however, this was held after some concern for bleeding. Some output into his chest tube today. Cont to hold. (4) Pneumothorax: On 07/22 he developed a spontaneous pneumothorax with a right tube t horacostomy placed by Dr. Sharma, general surgeon, at the bedside. There is no evidence of air leak. PTX is stable to slightly decreased on CXR this morning. Subcutaneous emphysema present. No utility at skin venting at this time. Serosanguinous drainage in tube. (5) Hypoxia: as above. (6) Catheter-associated urinary tract infection: empirically starting Rocephin pending culture results. (7) Pneumomediastinum: chest tube in place. cont current therapies. (8) Hypertension: all antihypertensives have been stopped for borderline low BP. (9) CKD (chronic kidney disease), stage III: at baseline 1.3-1.6 (10) DVT prophylaxis: SCDs DNR/DNI Dispo-uncertain at this time. Poor prognosis. DC'd covid precautions per policy. Family cleared for short visits at this time once he is moved off covid unit. Nursing leadership and family are all aware. Krys Nash DO [facility] Hospitalist Admission and Anticipated Discharge Date Admission Date: July 14, 2020 Subjective 79 yo M with COVID pneumonia, complicated by development of pneumothorax, pneumomediastinum and significant subcutaneous emphysema. He diuresed -2.7L out overnight after Lasix administration. He feels about the same today. He is still staying positive and wants to live. He is eagerly eating some sherbert and is oriented. Review of Systems Review of Systems: All systems reviewed & are unremarkable except as noted in Subjective Physical Exam Physical Exam: CONSTITUTIONAL: WNWD, vitals as above, ill-appearing, deconditioned and fatigued. EYES: normal conjunctivae, no scleral icterus ENT: external ear and nose normal, MMM, significant subcutaneous emphysema present on the right supraclavicular space. RESPIRATORY: diminished breath sounds throughout, no crackles, wheezes or rales, some increased respiratory effort on max supplemental oxygen therapy especially on recovery after exertion. CARDIOVASCULAR: regular rate and rhythm, S1 and 2 heard without murmurs, gallops or rubs, no JVD, no peripheral edema CHEST: right chest tube in place. GASTROINTESTINAL: soft, nontender, nondistended. MUSCULOSKELETAL: generalized weakness. SKIN: warm and dry NEUROLOGIC: CN 2-12 grossly intact, normal cognition, normal speech, no tremor. No gross focal deficits. Exam is limited 2/2 illness. PSYCHIATRIC: alert cooperative and oriented Results & Data Results & Data ([facility]) Vital Signs (Past 12 Hours) Vital Signs Temp Pulse Pulse Pulse Resp BP BP 07/28/20 15:06 92 H 26 H 07/28/20 11:45 91 H 31 H 07/28/20 11:35 99 H 30 H 106/65 07/28/20 11:32 36.9 C 07/28/20 11:10 89 24 07/28/20 10:03 92 H 32 H 112/63 07/28/20 07:17 89 24 07/28/20 04:30 92 H 26 H 07/28/20 04:03 36.6 C 88 30 H 114/59 L Pulse Ox 07/28/20 15:06 89 L 07/28/20 11:45 92 07/28/20 11:35 88 L 07/28/20 11:32 07/28/20 11:10 90 07/28/20 10:03 07/28/20 07:17 89 L 07/28/20 04:30 88 L 07/28/20 04:03 88 L Laboratory Results Short CBC 07/28/20 Range/Units 06:30 WBC 13.23 H (4.8-10.8) K/uL Hgb 14.3 (14.0-18.0) g/dL Hct 41.6 L (42-52) % Plt Count 406 H (130-400) K/uL BMP 07/28/20 06:30 Sodium 132 L Potassium 4.3 Chloride 97 L Carbon Dioxide 30 BUN 55 H Creatinine 1.36 Glucose 136 H Calcium 8.4 L Medications Administered Current Inpatient Medications Acetaminophen (Acetaminophen 325 Mg Tab) 650 mg PO Q4H PRN PRN Reason: Pain or Fever Stop: 08/13/20 21:54 Ascorbic Acid (Ascorbic Acid 500 Mg Tab) 500 mg PO BID MARIN Stop: 08/26/20 20:59 Last Admin: 07/28/20 09:10 Dose: 500 mg Documented by: Aspirin (Aspirin 81 Mg Ectab) 81 mg PO DAILY MARIN Stop: 08/14/20 08:59 Last Admin: 07/23/20 08:21 Dose: 81 mg Documented by: Benzonatate (Benzonatate 100 Mg Capsule) 100 mg PO TID PRN PRN Reason: cough Stop: 08/20/20 13:59 Dextrose (Dextrose 50% 50 Ml Syringe) 25 - 50 ml IV UD PRN; Protocol PRN Reason: Hypoglycemia Protocol Stop: 08/19/20 16:14 Glucagon (Glucagon For Inj 1 Mg Vial) 1 mg IM UD PRN; Protocol PRN Reason: Hypoglycemia Protocol Stop: 08/19/20 16:14 Glucose (Glucose 40% Gel 15 Gm Tube) 15 - 30 gm PO UD PRN; Protocol PRN Reason: Hypoglycemia Protocol Stop: 08/19/20 16:14 Glucose (Glucose 10 Tabs/Tube) 4 - 8 tabs PO UD PRN; Protocol PRN Reason: Hypoglycemia Protocol Stop: 08/19/20 16:14 Guaifenesin/Codeine Phosphate (Guaifenesin/Codeine 100mg/10mg 5ml Udc) 5 ml PO Q6H PRN PRN Reason: Cough Stop: 08/24/20 16:28 Lorazepam (Ativan) 0.5 mg in 1 mls @ 1 mls/min IV Q4H PRN PRN Reason: Anxiety Stop: 08/24/20 16:26 Insulin Aspart (Insulin Aspart 100 Units/Ml 3 Ml Pen) 0 units SC ACHS MARIN Stop: 08/19/20 16:29 Last Admin: 07/28/20 12:20 Dose: Not Given Documented by: Levalbuterol HCl (Levalbuterol Tartrate 15 Gm Hfa.Aer.Ad) 2 puffs INH Q4H PRN PRN Reason: sob/wheeze Stop: 08/18/20 06:59 Last Admin: 07/19/20 08:08 Dose: 2 puffs Documented by: Miscellaneous (Carbohydrates For Hypoglycemia ) 15 - 30 gm PO UD PRN PRN Reason: Hypoglycemia Treatment Stop: 08/19/20 16:14 Morphine Sulfate (Morphine Sulfate 2 Mg/Ml Carp) 2 mg IV Q2H PRN PRN Reason: Pain Stop: 08/06/20 10:25 Last Admin: 07/28/20 05:47 Dose: 2 mg Documented by: Morphine Sulfate (Morphine Sulfate 10 Mg/0.5 Ml Udp) 10 mg PO Q1H PRN PRN Reason: Pain Stop: 08/09/20 05:44 Last Admin: 07/26/20 08:42 Dose: 10 mg Documented by: Pantoprazole Sodium (Pantoprazole 40 Mg Tab) 40 mg PO BID MARIN Stop: 08/26/20 20:59 Last Admin: 07/28/20 09:10 Dose: 40 mg Documented by: Polyethylene Glycol (Polyethylene (Miralax) 17 Gm Pack) 17 gm PO BID PRN PRN Reason: CONSTIPATION Stop: 08/20/20 08:59 Senna/Docusate Sodium (Docusate Sodium/Senna 50/8.6mg Tab) 1 tab PO QAM MARIN Stop: 08/16/20 20:54 Last Admin: 07/28/20 09:10 Dose: 1 tab Documented by: Simvastatin (Simvastatin 40 Mg Tab) 40 mg PO HS [facility] Stop: 08/13/20 21:54 Last Admin: 07/22/20 20:34 Dose: 40 mg Documented by: Vitamin D (Cholecalciferol 1,000 Units 25 Mcg Tab) 1,000 units PO DAILY MARIN Stop: 08/27/20 08:59 Last Admin: 07/28/20 09:10 Dose: 1,000 units Documented by: Zinc Sulfate (Zinc Sulfate 220 Mg Capsule) 220 mg PO QAM MARIN Stop: 08/27/20 08:59 Last Admin: 07/28/20 09:10 Dose: 220 mg Documented by:
--- NOTE | 2020-07-28 15:29 | Palliative Care Progress Note ---
Date of Service July 28, 2020 Assessment & Plan (1) Palliative care encounter: Giovanni asked me if he's getting better. We discussed that despite best efforts he remains on maximum high flow oxygen and has been getting weaker. He realizes this and asked what it would be like "if we end it". We discussed sedation and withdrawing high flow oxygen support. I answered his questions about what to expect. I offered zoom visit with is family but he does not feel that he can talk to them and is concerned that it would make things harder for them. He is considering comfort directed care but requested time to think. I assured him that we will support whatever decision he makes. I spoke with his by phone. We talked about the concern that he is declining despite best efforts. She tells me that she is continuing to pray and is hopeful for recovery. Family has agreed to support whatever decision Giovanni makes for his care. (2) Pneumonia due to COVID-19 virus: (3) ARDS (adult respiratory distress syndrome): Admission and Anticipated Discharge Date Admission Date: July 14, 2020 Subjective More lethargic. Having difficulty with conversation. Asked if he's getting better. Review of Systems Review of Systems: [place] Symptom Assessment Scale Pain 0/3 Anxiety 1/3 Fatigue 3/3 Dyspnea 2/3 Nausea 0/3 Drowsiness 1/3 Palliative Performance Score 20% Physical Exam Constitutional: + ill appearing and + lethargic ENMT: Mouth: + dry oral mucous membranes Respiratory: + labored breathing and + uses accessory muscles sats in low to mid 80s with conversation on 100% 60L Cardiovascular: Rate/Rhythm: regular rate and regular rhythm Musculoskeletal: Extremities: + muscle atrophy Neurologic: not confused Results & Data ([facility]) Vital Signs (Past 12 Hours) Vital Signs Temp Pulse Pulse Pulse Resp BP BP 07/28/20 15:06 92 H 26 H 07/28/20 11:45 91 H 31 H 07/28/20 11:35 99 H 30 H 106/65 07/28/20 11:32 98.4 F 07/28/20 11:10 89 24 07/28/20 10:03 92 H 32 H 112/63 07/28/20 07:17 89 24 07/28/20 04:30 92 H 26 H 07/28/20 04:03 97.9 F 88 30 H 114/59 L Pulse Ox 07/28/20 15:06 89 L 07/28/20 11:45 92 07/28/20 11:35 88 L 07/28/20 11:32 07/28/20 11:10 90 07/28/20 10:03 07/28/20 07:17 89 L 07/28/20 04:30 88 L 07/28/20 04:03 88 L PG Care Time/CCT Total # of Minutes Spent Total Time Spent with Patient: Total time spent is greater than 50% in coordination of care (as documented) at patient's floor/unit and/or counseling patient: total time spent 45 min with more than 50% of time spent on patient and family support, prognosis, goals of care Coding Level of Care Code 19123 Subseq Hosp Care Lvl 3 Diagnoses Palliative care encounter Z51.5 Pneumonia due to COVID-19 virus U07.1; J12.82 ARDS (adult respiratory distress syndrome) J80
--- NOTE | 2020-07-28 16:29 | Pulmonology Progress Note ---
Date of Service July 28, 2020 Assessment & Plan (1) Pneumonia due to COVID-19 virus: Impression: 79-year-old male with a past medical history of hypertension, hyperlipidemia and BPH presenting to the hospital due to COVID-19 illness. His course has been complicated by development of pneumothorax pneumomediastinum and significant subcutaneous emphysema.He has received all approved therapies and unfortunately continues to decline. Do not believe that this is a salvageable situation at this point in time. Recommendations: 1. Acute hypoxic respiratory failure: Secondary to COVID-19. Patient completed a course of Decadron. There are no other adjunctive therapies at this point time which would offer the patient clinical improvement. Continued steroids may result in worsening of the pneumothorax. 2. Spontaneous pneumothorax on the right: Underwent surgical chest tube placement on 07/22/2020. Size 20 Romanian chest tube is currently in place. Pneumothorax on chest x-ray appears stable to slightly decreased in size. Would continue the tube for now although it appears to be migrating and is certainly at risk of coming out of the chest. Replacement of the tube or redirection in the tube I think may result in clinical worsening of the patient so I would hold off for now. The pneumothorax does not appear to be contributing to worsening of the patient's respiratory status currently so I would be reluctant to replace or reposition the tube. We could consider clamping it to see whether or not the lung would remain up however that does pose the patient at risk for clinical deterioration and given his tenuous respiratory status, I think I would hold off for now. If the patient elects to transition to complete comfort care measures and the tube is uncomfortable for him, it could be discontinued. 3. Additional recommendations per palliative care and the primary hospitalist service Unfortunately, I do not think I have anything else to offer the patient at this point in time. Agree with the palliative care notes and would recommend transition to full comfort measures at this point in time. Please contact us if we can be of additional assistance (2) Hypoxia: (3) Breath shortness: (4) Lower extremity edema: (5) Pneumothorax: (6) Pneumomediastinum: (7) ARDS (adult respiratory distress syndrome): Admission and Anticipated Discharge Date Admission Date: July 14, 2020 Subjective Patient seen and examined. EMR reviewed. Patient unfortunately continues to decline. He has oxygen saturations in the mid to low 80% range now despite 60 L/min at 100%. He is tachypneic with respiratory rate in the 30s and is complaining that his breathing is getting to be problematic for him. He is not having any pain. He denies cough or sputum production. Review of Systems Review of Systems: See hospital notes for full details. Physical Exam Neck: normal visual inspection Respiratory: + uses accessory muscles and + tachypneic Cardiovascular: Rate/Rhythm: regular rate and regular rhythm Heart Sounds: normal S1 and normal S2 Extremities: + edema Gastrointestinal (Abdomen): normal bowel sounds, soft, nontender, no hepatosplenomegaly Musculoskeletal: no cyanosis or clubbing, extremities motor strength 5/5 Neurologic: PERRL, EOMI, accommodation nl, no face palsy, no dysarthria Psychiatric: A+Ox3, euthymic affect Results & Data Results & Data ([facility]) Vital Signs (Past 12 Hours) Vital Signs Temp Pulse Pulse Pulse Resp BP Pulse Ox 07/28/20 15:06 92 H 26 H 89 L 07/28/20 11:45 91 H 31 H 92 07/28/20 11:35 99 H 30 H 106/65 88 L 07/28/20 11:32 36.9 C 07/28/20 11:10 89 24 90 07/28/20 10:03 92 H 32 H 112/63 07/28/20 07:17 89 24 89 L 07/28/20 04:30 92 H 26 H 88 L Laboratory Results 07/28/20 06:30 07/28/20 06:30 Diagnostic Findings Chest x-ray from today was reviewed. The chest tube remains in the thorax with a trivial apical pneumothorax. Extensive bilateral pulmonary infiltrates are noted and not significantly improved PG Care Time/CCT Total # of Minutes Spent Total Time Spent with Patient: Total time spent is greater than 50% in c oordination of care (as documented) at patient's floor/unit and/or counseling patient: Coding Level of Care Code 60334 Subseq Hosp Care Lvl 2 Diagnoses Pneumonia due to COVID-19 virus U07.1; J12.82 Hypoxia R09.02 Breath shortness R06.02 Lower extremity edema R60.0 Pneumothorax J93.9 Pneumomediastinum J98.2 ARDS (adult respiratory distress syndrome) J80
[2020-07-28] MEDS ORDERED: FUROSEMIDE 20 MG in SYRINGE 0 ML IV ONE (17:39)
[2020-07-28] MEDS ORDERED: FUROSEMIDE 40 MG/4 ML VIAL IV ONE ×2 (18:00→20:02)
[2020-07-28 19:04] LABS: Appearance Urine Cloudy (Clear); Bacteria Urine Automated 3+ (Negative); Blood Urine 1+ (Negative); Color Urine Dark Yellow; Epithelial Cell Urine Auto 0-5 /lpf (0-5); Glucose Urine UA Negative (Negative); Ketones Urine Trace (Negative); Leukocyte Esterase Urine 2+ (Negative); Nitrite Urine Positive (Negative); Protein Urine 1+ (Negative); Specific Gravity Urine 1.027 (1.000-1.030); Urobilinogen Urine Positive (Negative); WBC Urine Automated >30 /hpf (0-5)
[2020-07-28 19:22] LABS: Bilirubin Urine 2+ (Negative)
[2020-07-28 19:47] LABS: RBC Urine Automated 0-4 /hpf (0-4)
[2020-07-28] MEDS: MoRPHine SULFATE 10 MG/0.5 ML UDP PO PRN (20:09)
[2020-07-29] MEDS ORDERED: cefTRIAXone SODIUM 2,000 MG in DEXTROSE 5% 50 ML IV SCH
[2020-07-29] MEDS: MoRPHine SULFATE 2 MG/ML CARP IV PRN ×2 (04:25→06:56)
[2020-07-29 06:33] LABS: Hematocrit (blood only) 44.6 % (42-52); Hemoglobin 15.4 g/dL (14.0-18.0); Mean Corpuscular Hemoglobin 30.6 pg (25-34); Mean Corpuscular Hgb Conc 34.5 g/dL (32-36); Mean Corpuscular Volume 88.5 fL (80-100); Mean Platelet Volume 10.4 fL (7.4-10.4); Platelet Count 393 K/uL (130-400); RDW Coefficient of Variation 14.4 % (11.5-14.5); RDW Standard Deviation 46.1 fL (36.4-46.3); Red Blood Count 5.04 M/uL (4.7-6.1); White Blood Count 14.49 K/uL (4.8-10.8)
[2020-07-29 06:59] LABS: BUN Creatinine Ratio 40.9 (10-20); Calcium 8.7 mg/dl (8.5-10.1); Creatinine Clr Calc Pharmacy 53.2 ml/min; Est GFR (African American) 61.6; Est GFR (Non-African American) 53.1; Magnesium 2.6 mg/dl (1.8-2.4); Potassium 4.4 mmol/L (3.5-5.1)
[2020-07-29] MEDS: MoRPHine SULFATE 10 MG/0.5 ML UDP PO PRN ×6 (07:53→15:54)
[2020-07-29] MEDS: DOCUSATE SODIUM/SENNA 50/8.6MG TAB PO SCH (07:56)
[2020-07-29] MEDS: ZINC SULFATE 220 MG CAPSULE PO SCH (07:56)
[2020-07-29] MEDS: ASCORBIC ACID 500 MG TAB PO SCH (07:56)
[2020-07-29] MEDS: PANTOprazole 40 MG TAB PO SCH (07:56)
[2020-07-29] MEDS: CHOLECALCIFEROL 1,000 UNITS 25 MCG TAB PO SCH (07:56)
[2020-07-29] MEDS: INSULIN ASPART 100 UNITS/ML 3 ML PEN SC SCH ×2 (07:57→12:35)
[2020-07-29] MEDS ORDERED: FUROSEMIDE 20 MG in SYRINGE 0 ML IV SCH (09:00)
[2020-07-29] MEDS ORDERED: ONDANSETRON 4 MG OD TAB SL PRN (11:50)
[2020-07-29] MEDS ORDERED: LORazepam 0.5 MG/1 ML VIAL IV PRN (11:50)
[2020-07-29] MEDS ORDERED: ATROPINE SULFATE 1% OP SOLN 5 ML BTL SL PRN (11:50)
[2020-07-29] MEDS ORDERED: ONDANSETRON INJ 2 MG/ML 2 ML VIAL IV PRN (11:50)
[2020-07-29] MEDS ORDERED: LORazepam 0.5 MG TAB PO PRN (11:50)
--- NOTE | 2020-07-29 11:57 | Hospitalist Progress Note ---
Date of Service July 29, 2020 Assessment & Plan (1) Comfort measures only status: Roxanal preferred q1h as needed for RR>16 (tachypnea) or any increased work of breathing noted by nursing. Ativan PRN anxiety/agitation. May use Haldol for second option if needed. Atropine drops prn secretions. Maintain reynaga and chest tube at this time. (2) Acute and chronic respiratory failure with hypoxia: Patient with COVID-19 pneumonia. He completed a course of Decadron and a 5-day course of remdesivir. Steroids have been stopped as it may result in worsening of the pneumothorax. Remains very dyspneic at this point and has a high mortality risk. The patient has decided to pursue comfort care measures at this time. (3) ARDS (adult respiratory distress syndrome): On 07/19 patient's status was changed to ICU for worsening acute hypoxic respiratory failure secondary to COVID-19. His Decadron was increased per the ARDS trial results. His CODE STATUS was changed to DNR/DNI. Off steroids now. (4) Pneumonia due to COVID-19 virus: Plan as above. Patient was placed on full dose Lovenox, however, this was held after some concern for bleeding. Cont to avoid. (5) Pneumothorax: On 07/22 he developed a spontaneous pneumothorax with a right tube thoracostomy placed by Dr. Sharma, general surgeon, at the bedside. There is no evidence of air leak. PTX is stable to slightly decreased on CXR this morning. Subcutaneous emphysema present. No utility at skin venting at this time. Serosanguinous drainage in tube. (6) Hypoxia: as above. (7) Catheter-associated urinary tract infection: empirically starting Rocephin pending culture results. This has been stopped now that patient is on comfort measures. (8) Pneumomediastinum: chest tube in place. cont current therapies. (9) Hypertension: all antihypertensives have been stopped for borderline low BP. (10) CKD (chronic kidney disease), stage III: at baseline 1.3-1.6 (11) DVT prophylaxis: SCDs DNR/DNI Dispo-comfort care measures status. Off covid precautions. Transition to med/surg bed, preferably in a private room where family can visit. They have been cleared by clinical coordinator to enter hospital with end of life situation. Names placed at motel front desk clerk last night. I updated the family by phone of the change. Krys Nash DO [facility] Hospitalist Admission and Anticipated Discharge Date Admission Date: July 14, 2020 Subjective 79 yo M with COVID pneumonia, complicated by development of pneumothorax, pneumomediastinum and significant subcutaneous emphysema. Hospital course further complicated by CAUTI. The patient is requesting to transition into comfort care at this point. I informed him of his urinary tract infection I explained what morphine, ativan etc does and that he can ask for anything he needs He requests to keep the current oxygen piece in place as it is more comfortable He is still eating and verbalized understanding of the current instructions and that he can eat or drink anything he wants without restrictions. He verbalized he didn't need to have his family come in to see him and that it was his decision to . He expressed concern about this possibly delaying the process further. He was reassured that would not be the case. He denies pain but is very short of breath. Review of Systems Review of Systems: All systems reviewed & are unremarkable except as noted in Subjective Physical Exam Physical Exam: CONSTITUTIONAL: WNWD, vitals as above, ill-appearing, deconditioned and fatigued. EYES: normal conjunctivae, no scleral icterus ENT: external ear and nose normal, MMM, significant subcutaneous emphysema present on the right supraclavicular space. RESPIRATORY: diminished breath sounds throughout, no crackles, wheezes or rales, some increased respiratory effort on max supplemental oxygen therapy especially on recovery after exertion. CARDIOVASCULAR: regular rate and rhythm, S1 and 2 heard without murmurs, gallops or rubs, no JVD, no peripheral edema CHEST: right chest tube in place. GASTROINTESTINAL: soft, nontender, nondistended. MUSCULOSKELETAL: generalized weakness. SKIN: warm and dry NEUROLOGIC: CN 2-12 grossly intact, normal cognition, normal speech, no tremor. No gross focal deficits. Exam is limited 2/2 illness. PSYCHIATRIC: alert cooperative and oriented Results & Data Results & Data ([facility]) Vital Signs (Past 12 Hours) Vital Signs Temp Pulse Pulse Resp BP BP Pulse Ox 07/29/20 10:36 96 H 24 86 L 07/29/20 08:00 91 H 07/29/20 07:41 93 H 26 H 107/68 86 L 07/29/20 07:21 96 H 24 84 L 07/29/20 03:21 87 26 H 86 L 07/29/20 03:10 90 85 L 07/29/20 03:00 84 88 L 07/29/20 02:51 85 86 L 07/29/20 02:40 88 85 L 07/29/20 02:38 36.5 C 89 118/63 83 L 07/29/20 02:30 89 88 L 07/29/20 02:21 82 88 L 07/29/20 02:10 84 88 L 07/29/20 02:00 84 85 L 07/29/20 01:50 90 86 L 07/29/20 01:41 89 87 L 07/29/20 01:30 82 90 07/29/20 01:20 83 89 L 07/29/20 01:11 83 91 07/29/20 01:00 85 91 07/29/20 00:50 84 91 07/29/20 00:41 90 90 07/29/20 00:30 87 87 L 07/29/20 00:20 86 91 07/29/20 00:11 87 88 L 07/29/20 00:00 89 86 L Laboratory Results Short CBC 07/29/20 Range/Units 06:06 WBC 14.49 H (4.8-10.8) K/uL Hgb 15.4 (14.0-18.0) g/dL Hct 44.6 (42-52) % Plt Count 393 (130-400) K/uL BMP 07/29/20 06:16 Sodium 133 L Potassium 4.4 Chloride 99 Carbon Dioxide 30 BUN 52 H Creatinine 1.26 Glucose 135 H Calcium 8.7 Urine 07/28/20 Range/Units 18:41 Urine Color Dark Yellow Urine Appearance Cloudy A (Clear) Urine pH 5.0 (4.5-7.5) Ur Specific [place] 1.027 (1.000-1.030) Urine Protein 1+ H (Negative) Urine Glucose (UA) Negative (Negative) Medications Administered Current Inpatient Medications Acetaminophen (Acetaminophen 325 Mg Tab) 650 mg PO Q4H PRN PRN Reason: Pain or Fever Stop: 08/13/20 21:54 Atropine Sulfate (Atropine Sulfate 1% Op Soln 5 Ml Btl) 4 drops SL Q1H PRN PRN Reason: Secretions or pulm congestion Stop: 08/28/20 11:49 Benzonatate (Benzonatate 100 Mg Capsule) 100 mg PO TID PRN PRN Reason: cough Stop: 08/20/20 13:59 Guaifenesin/Codeine Phosphate (Guaifenesin/Codeine 100mg/10mg 5ml Udc) 5 ml PO Q6H PRN PRN Reason: Cough Stop: 08/24/20 16:28 Lorazepam (Ativan) 0.5 mg in 1 mls @ 1 mls/min IV Q4H PRN PRN Reason: Anxiety Stop: 08/24/20 16:26 Ceftriaxone Sodium 2,000 mg/ (Dextrose) 70 mls @ 100 mls/hr IV Q24H MARIN; Protocol Stop: 08/08/20 00:00 Last Infusion: 07/29/20 02:16 Dose: Infused Documented by: Lorazepam (Ativan) 0.5 mg in 1 mls @ 1 mls/min IV Q4H PRN PRN Reason: Anxiety/Agitation Stop: 08/28/20 11:49 Levalbuterol HCl (Levalbuterol Tartrate 15 Gm Hfa.Aer.Ad) 2 puffs INH Q4H PRN PRN Reason: sob/wheeze Stop: 08/18/20 06:59 Last Admin: 07/19/20 08:08 Dose: 2 puffs Documented by: Lorazepam (Lorazepam 0.5 Mg Tab) 0.5 mg PO Q4H PRN PRN Reason: Anxiety/Agitation Stop: 08/28/20 11:49 Morphine Sulfate (Morphine Sulfate 2 Mg/Ml Carp) 2 mg IV Q2H PRN PRN Reason: Pain Stop: 08/06/20 10:25 Last Admin: 07/29/20 06:56 Dose: 2 mg Documented by: Morphine Sulfate (Morphine Sulfate 10 Mg/0.5 Ml Udp) 10 mg PO Q1H PRN PRN Reason: Pain or RR>16 breaths/min Stop: 08/09/20 05:44 Ondansetron HCl (Ondansetron Inj 2 Mg/Ml 2 Ml Vial) 4 mg IV Q4H PRN PRN Reason: Nausea And Vomiting Stop: 08/28/20 11:49 Ondansetron HCl (Ondansetron 4 Mg Od Tab) 4 mg SL Q4H PRN PRN Reason: Nausea And Vomiting Stop: 08/28/20 11:49
[2020-07-30] MEDS ORDERED: MoRPHine SULFATE 4 MG/ML 1 ML CARP\\VIAL IV STA ×2 (10:43→13:52)
[2020-07-30] MEDS ORDERED: STAT IV Infusion **Titration per Protocol STA ×2 (10:44→15:33)
[2020-07-30] MEDS ORDERED: MoRPHine SULF/SW 240 MG/240 ML BTL IV SCH ×2 (10:45→15:45)
[2020-07-30] MEDS ORDERED: MoRPHine SULFATE 4 MG/ML 1 ML CARP\\VIAL ONE (13:56)
--- NOTE | 2020-07-30 14:42 | Hospitalist Progress Note ---
Date of Service July 30, 2020 Assessment & Plan (1) Comfort measures only status: Morphine drip started. No need to titrate if patient is comfortable. Watch for RR>16 breaths/min, go up on dose per protocol if over this or if patient struggling. OK to call for additional morphine boluses if needed anytime. Ativan PRN anxiety/agitation. May use Haldol for second option if needed. Atropine drops prn secretions. Maintain reynaga and chest tube at this time. Discussed care plan with both primary nurse and with son, Jan, who was at the bedside. (2) Acute and chronic respiratory failure with hypoxia: (3) ARDS (adult respiratory distress syndrome): (4) Pneumonia due to COVID-19 virus: (5) Pneumothorax: (6) Hypoxia: (7) Catheter-associated urinary tract infection: (8) Pneumomediastinum: (9) Hypertension: (10) CKD (chronic kidney disease), stage III: Admission and Anticipated Discharge Date Admission Date: July 14, 2020 Subjective 79 yo M with COVID pneumonia, complicated by development of pneumothorax, pneumomediastinum and significant subcutaneous emphysema. Hospital course further complicated by CAUTI. Transition to comfort care measures on 07/29. Notably he has not had any morphine overnight Patient reports some dyspnea which is evident on a respiratory rate tract at bedside He does not appear in any distress Son Jan is at the bedside and has many questions. Jan is wondering if the patient will recover in a long discussion took place regarding palliative measures and what this means again. We have discussed this at least 2 times on the phone together in the last few days. It appears he is having a hard time processing this. He was reassured that we will be here for the patient and him and his family as needed and to please ask for anything that is needed. He verbalized understanding and thanked me. Morphine drip started with morphine bolus 4 mg. Approximately 3 hours later the patient asked for another morphine bolus which was given. Morphine drip was running at this time. Continue to titrate based on respiratory rate. Discussed with primary nurse. Review of Systems Review of Systems: All systems reviewed & are unremarkable except as noted in Subjective Physical Exam Physical Exam: CONSTITUTIONAL: WNWD, vitals as above, ill-appearing, deconditioned and fatigued. EYES: normal conjunctivae, no scleral icterus ENT: external ear and nose normal, MMM, significant subcutaneous emphysema present on the right supraclavicular space. RESPIRATORY: diminished breath sounds throughout, no crackles, wheezes or rales, some increased respiratory effort on max supplemental oxygen therapy especially on recovery after exertion. CARDIOVASCULAR: regular rate and rhythm, S1 and 2 heard without murmurs, gallops or rubs, no JVD, no peripheral edema CHEST: right chest tube in place. GASTROINTESTINAL: soft, nontender, nondistended. MUSCULOSKELETAL: generalized weakness. SKIN: warm and dry NEUROLOGIC: CN 2-12 grossly intact, normal cognition, normal speech, no tremor. No gross focal deficits. Exam is limited 2/2 illness and hypoxia. PSYCHIATRIC: alert cooperative and oriented Results & Data Results & Data ([facility]) Vital Signs (Past 12 Hours) Vital Signs Pulse Resp Pulse Ox 07/30/20 10:25 89 22 80 L 07/30/20 03:48 104 H 28 H 84 L Medications Administered Current Inpatient Medications Acetaminophen (Acetaminophen 325 Mg Tab) 650 mg PO Q4H PRN PRN Reason: Pain or Fever Stop: 08/13/20 21:54 Atropine Sulfate (Atropine Sulfate 1% Op Soln 5 Ml Btl) 4 drops SL Q1H PRN PRN Reason: Secretions or pulm congestion Stop: 08/28/20 11:49 Benzonatate (Benzonatate 100 Mg Capsule) 100 mg PO TID PRN PRN Reason: cough Stop: 08/20/20 13:59 Lorazepam (Ativan) 0.5 mg in 1 mls @ 1 mls/min IV Q4H PRN PRN Reason: Anxiety Stop: 08/24/20 16:26 Lorazepam (Ativan) 0.5 mg in 1 mls @ 1 mls/min IV Q4H PRN PRN Reason: Anxiety/Agitation Stop: 08/28/20 11:49 Morphine Sulfate (Morphine Sulf/Sw) 240 mg in 240 mls @ 1 mls/hr IV .Q96H MARIN; Protocol Stop: 08/13/20 10:44 Last Admin: 07/30/20 12:05 Dose: 2 mg/hr, 2 mls/hr Documented by: Levalbuterol HCl (Levalbuterol Tartrate 15 Gm Hfa.Aer.Ad) 2 puffs INH Q4H PRN PRN Reason: sob/wheeze Stop: 08/18/20 06:59 Last Admin: 07/19/20 08:08 Dose: 2 puffs Documented by: Lorazepam (Lorazepam 0.5 Mg Tab) 0.5 mg PO Q4H PRN PRN Reason: Anxiety/Agitation Stop: 08/28/20 11:49 Ondansetron HCl (Ondansetron Inj 2 Mg/Ml 2 Ml Vial) 4 mg IV Q4H PRN PRN Reason: Nausea And Vomiting Stop: 08/28/20 11:49 Ondansetron HCl (Ondansetron 4 Mg Od Tab) 4 mg SL Q4H PRN PRN Reason: Nausea And Vomiting Stop: 08/28/20 11:49
[2020-07-31] MEDS ORDERED: MoRPHine SULFATE 2 MG/ML CARP IV PRN (12:06)
--- NOTE | 2020-07-31 12:48 | Palliative Care Progress Note ---
Date of Service July 31, 2020 Assessment & Plan (1) Palliative care encounter: He appears comfortable on current morphine dose of 3mg/hr. Will order prn dosing for pain or dyspnea with care as needed. At this point, high flow oxygen is not improving his comfort level. Would decrease to nasal cannula at 5-6 L and titrate for comfort only. Discussed with RN and with Dr. Nash. I spoke with Bro and with Mrs. Flores on the phone and updated them. They understand that he is approaching his dying time. They have spoken with family members out of town and a daughter in [place] will be arriving tomorrow. They have been in to see him and at this time they are more comfortable with not seeing him in his current condition. I assured them that we will focus on his comfort and keep them updated. (2) ARDS (adult respiratory distress syndrome): (3) Acute and chronic respiratory failure with hypoxia: (4) Pneumonia due to COVID-19 virus: Admission and Anticipated Discharge Date Admission Date: July 14, 2020 Subjective Now on morphine infusion. Currently on high flow oxygen. Does not respond to voice or touch. Review of Systems Review of Systems: Unobtainable due to reduced consciousness [place] Symptom Assessment Scale Pain 0/3 Dyspnea 0/3 Drowsiness 3/3 Palliative Performance Score 10% Physical Exam Constitutional: no acute distress Respiratory: no respiratory distress no audible rhonchi Cardiovascular: no edema, no mottling Gastrointestinal (Abdomen): Inspection/Auscultation: abdomen not distended Musculoskeletal: Extremities: extremities normal to inspection Neurologic: + obtunded Results & Data ([facility]) Vital Signs (Past 12 Hours) Vital Signs Resp 07/31/20 11:30 12 07/31/20 08:00 14 07/31/20 03:54 16 PG Care Time/CCT Total # of Minutes Spent Total Time Spent with Patient: Total time spent is greater than 50% in coordination of care (as documented) at patient's floor/unit and/or counseling patient: total time spent 40 minutes with more than 50% of time spent of symptom management, prognosis, family education and support, coordination of care. Coding Level of Care Code 45940 Subseq Hosp Care Lvl 3 Diagnoses Palliative care encounter Z51.5 ARDS (adult respiratory distress syndrome) J80 Acute and chronic respiratory failure with hypoxia J96.21 Pneumonia due to COVID-19 virus U07.1; J12.82 Time Spent (min) 40
--- NOTE | 2020-07-31 13:28 | Communication Note ---
Date of Service: July 31, 2020 NOTE: I was contacted by nursing staff that the patient was unresponsive. On arrival the patient was motionless with no rise and fall of the chest. He was not responsive to verbal or physical stimuli. Pupils were fixed and dilated. There was no pulse palpable, and there were no heart or breath sounds to auscultation. He was pronounced at 1:17pm. Son Giovanni was notified by phone per the contact information given in the chart. DO Saad
--- NOTE | 2020-07-31 13:32 | Discharge Summary ---
Date of Service July 31, 2020 Admission HPI Per Admitting Provider HISTORY OF PRESENT ILLNESS: This is an 79-year-old male with past medical history significant for hyperlipidemia, hypertension, who lives with his 5 family members with his and sons having symptoms of cough, fever since last Friday, having fever on and off and bringing some phlegm with cough, poor appetite, feeling weak, tired and getting short of breath, not getting better, so came to the ER. In the ER, he was saturating 74%, requiring 8 liters OxyMask. Currently with oxygen he is feeling fine and is able to talk and give history. Son is in the room. Son says all the family members are sick. While all of them got better, but dad was only not getting better and was bought to ER. Denies any chest pain, some nausea, no vomiting, no abdominal pain, some diarrhea. Normal bladder movements. Has headache, and some runny nose, no earaches, no sore throat. He has loss of sense of smell and taste and poor appetite. Otherwise, ambulating okay at home. Admission Exam Per Admitting Provider PHYSICAL EXAMINATION: GENERAL: The patient is of moderate build, not in acute distress. VITAL SIGNS: Temperature 37.6, pulse 81, respiratory rate 28, blood pressure 121/70, oxygen 72% on room air, 93% on 8 liters OxyMask. HEENT: Pupils equal, round, reactive to light. Oral mucosa dry. NECK: No JVD. No neck masses. CARDIOVASCULAR: S1, S2 heard, regular rate and rhythm, no murmur, no gallop. RESPIRATORY SYSTEM: Normal AP diameter. No accessory muscle use. Mild bibasilar crackles. No wheezing. ABDOMEN: Soft, bowel sounds present, nontender. No distention. CENTRAL NERVOUS SYSTEM: Cranial nerves II-XII grossly intact, nonfocal. EXTREMITIES: No edema, no erythema. Principal Diagnosis Acute on chronic respiratory failure with hypoxia Pneumonia due to COVID-19 virus ARDS Right-sided pneumothorax status post chest tube placement Hypoxia Catheter associated urinary tract infection Pneumomediastinum Discharge Exam See note Discharge Data Allergies Allergy/AdvReac Type Severity Reaction Status Date / Time pollen extracts Allergy Intermediate "Environmental" Verified 07/14/20 21:57 -- runny nose, sneezing Consultations 07/14/20 17:48 ED Decision to Admit Stat 07/17/20 07:34 Consult Pulmonology Routine 07/19/20 08:17 Consult Network Control Operator Routine 07/19/20 09:04 Consult Palliative Care Routine 07/22/20 13:57 Consult General Surgery Routine 07/27/20 10:01 Consult Gastroenterology Routine Ordered Studies Laboratory Results WBC 14.49 K/uL (4.8-10.8) H 07/29/20 06:06 RBC 5.04 M/uL (4.7-6.1) 07/29/20 06:06 Hgb 15.4 g/dL (14.0-18.0) 07/29/20 06:06 Hct 44.6 % (42-52) 07/29/20 06:06 MCV 88.5 fL (80-100) 07/29/20 06:06 MCH 30.6 pg (25-34) 07/29/20 06:06 MCHC 34.5 g/dL (32-36) 07/29/20 06:06 RDW Std Deviation 46.1 fL (36.4-46.3) 07/29/20 06:06 RDW Coeff of Coretta 14.4 % (11.5-14.5) 07/29/20 06:06 Plt Count 393 K/uL (130-400) 07/29/20 06:06 MPV 10.4 fL (7.4-10.4) 07/29/20 06:06 Immature Gran % (Auto) 0.6 % 07/27/20 05:49 Neut % (Auto) 92.0 % 07/27/20 05:49 Lymph % (Auto) 3.2 % 07/27/20 05:49 [place] % (Auto) 2.4 % 07/27/20 05:49 Eos % (Auto) 1.8 % 07/27/20 05:49 Baso % (Auto) 0.0 % 07/27/20 05:49 Neut # (Auto) 12.51 K/uL (1.4-6.5) H 07/27/20 05:49 Lymph # (Auto) 0.44 K/uL (1.2-3.4) L 07/27/20 05:49 Imperial # (Auto) 0.33 K/uL (0.11-0.59) 07/27/20 05:49 Eos # (Auto) 0.24 K/uL (0-0.5) 07/27/20 05:49 Baso # (Auto) 0.00 K/uL (0-0.2) 07/27/20 05:49 Immature Gran # (Auto) 0.08 K/uL (0.00-0.02) H 07/27/20 05:49 Echinocytes 1+ 07/17/20 04:24 ESR 47 mm/hr (0-20) H 07/17/20 04:24 APTT 28.8 Seconds (21.0-31.0) 07/17/20 04:24 PTT Ratio 1.1 07/17/20 04:24 D-Dimer 6520 ug/L FEU (0-500) H* 07/18/20 11:56 ABG pH 7.48 (7.35-7.45) H 07/19/20 08:15 ABG pCO2 29 mmHg (35-46) L 07/19/20 08:15 ABG pO2 63 mmHg (80-95) L 07/19/20 08:15 ABG HCO3 21 mmol/L (19-24) 07/19/20 08:15 ABG O2 Saturation 94.0 % (90-95) 07/19/20 08:15 ABG Base Excess -1.0 mEq/L (-9-1.8) 07/19/20 08:15 Cristian Test Pos (Pos) 07/19/20 08:15 Barometric Pressure 730.3 mm/Hg 07/19/20 08:15 Oxygen Given 40L 07/19/20 08:15 Sodium 133 mmol/L (136-145) L 07/29/20 06:16 Potassium 4.4 mmol/L (3.5-5.1) 07/29/20 06:16 Chloride 99 mmol/L (98-107) 07/29/20 06:16 Carbon Dioxide 30 mmol/L (21-32) 07/29/20 06:16 Anion Gap 4.0 (3-11) 07/29/20 06:16 BUN 52 mg/dl (7-18) H 07/29/20 06:16 Creatinine 1.26 mg/dl (0.6-1.4) 07/29/20 06:16 Est Cr Clr Drug Dosing 53.2 ml/min 07/29/20 06:16 Est GFR ( Amer) 61.6 07/29/20 06:16 Est GFR (Non-Af Amer) 53.1 07/29/20 06:16 BUN/Creatinine Ratio 40.9 (10-20) H 07/29/20 06:16 Glucose 135 mg/dl (70-99) H 07/29/20 06:16 POC Glucose 137 mg/dl (70-99) H 07/29/20 07:39 Lactate 1.4 mmol/L (0.4-2.0) 07/19/20 08:20 Calcium 8.7 mg/dl (8.5-10.1) 07/29/20 06:16 Phosphorus 3.5 mg/dl (2.5-4.9) 07/20/20 08:25 Magnesium 2.6 mg/dl (1.8-2.4) H 07/29/20 06:16 Ferritin 518.3 ng/ml (8-388) H 07/17/20 04:24 Total Bilirubin 0.9 mg/dl (0.2-1) 07/19/20 08:20 Direct Bilirubin 0.1 mg/dl (0-0.2) 07/15/20 06:26 AST 36 U/L (15-37) 07/19/20 08:20 ALT 36 U/L (12-78) 07/19/20 08:20 Alkaline Phosphatase 65 U/L (45-117) 07/19/20 08:20 Troponin I < 0.015 ng/ml (0-0.045) 07/15/20 06:26 C-Reactive Protein 19.00 mg/dl (0-0.29) H 07/29/20 06:16 NT-Pro-B Natriuret Pep 108 pg/ml (0-1800) 07/17/20 04:24 Total Protein 6.4 gm/dl (6.4-8.2) 07/19/20 08:20 Albumin 2.6 gm/dl (3.4-5.0) L 07/19/20 08:20 Globulin 3.8 gm/dl (2.5-4.0) 07/19/20 08:20 Albumin/Globulin Ratio 0.7 (0.9-2) L 07/19/20 08:20 Lipase 458 U/L (73-393) H 07/14/20 17:20 Procalcitonin 0.15 ng/ml (0-0.5) 07/28/20 06:30 Urine Color Dark Yellow 07/28/20 18:41 Urine Appearance Cloudy (Clear) A 07/28/20 18:41 Urine pH 5.0 (4.5-7.5) 07/28/20 18:41 Ur Specific [place] 1.027 (1.000-1.030) 07/28/20 18:41 Urine Protein 1+ (Negative) H 07/28/20 18:41 Urine Glucose (UA) Negative (Negative) 07/28/20 18:41 Urine Ketones Trace (Negative) H 07/28/20 18:41 Urine Blood 1+ (Negative) H 07/28/20 18:41 Urine Nitrite Positive (Negative) A 07/28/20 18:41 Urine Bilirubin 2+ (Negative) H 07/28/20 18:41 Urine Urobilinogen Positive (Negative) H 07/28/20 18:41 Ur Leukocyte Esterase 2+ (Negative) H 07/28/20 18:41 Urine WBC (Auto) >30 /hpf (0-5) H 07/28/20 18:41 Urine RBC (Auto) 0-4 /hpf (0-4) 07/28/20 18:41 U Hyaline Cast (Auto) 5-10 /lpf (0-5) H 07/28/20 18:41 U Epithel Cells (Auto) 0-5 /lpf (0-5) 07/28/20 18:41 Urine Bacteria (Auto) 3+ (Negative) H 07/28/20 18:41 Urine Yeast Not Reportable 07/28/20 18:41 COVID-19 Eval Order [facility]FluRsv at [facility] 07/14/20 18:02 SARS-CoV-2 (PCR) POSITIVE (Negative) A* 07/14/20 18:02 Influenza Type A (PCR) Negative (Neg) 07/14/20 18:02 Influenza Type B (PCR) Negative (Neg) 07/14/20 18:02 RSV (RT-PCR) Negative (Neg) 07/14/20 18:02 Blood Type O Positive 07/26/20 22:24 Antibody Screen NEGATIVE 07/26/20 22:24 Impressions Chest X-Ray 07/28/20 09:56 XR chest 1V portable HISTORY: 79 years-old Male R PTX s/p chest tube, monitor progression follow-up study in a patient with right-sided pneumothorax COMPARISON: Chest radiograph 07/27/2020 TECHNIQUE: Portable AP view of the chest FINDINGS: Cardiac mediastinal and hilar silhouettes are unchanged. Unchanged small right apical pneumothorax with pleural separation of 10 mm. Stable positioning of the right lung base chest tube. Subcutaneous emphysema with pneumomediastinum. Extensive bilateral airspace opacities are unchanged. IMPRESSION: 1. Unchanged positioning of the right lung base chest tube with stable small right apical pneumothorax. 2. Subcutaneous emphysema and pneumomediastinum redemonstrated. 3. Extensive bilateral airspace opacities are unchanged. ACT 112: Negative or not required by law. The above report was generated using voice recognition software. It may contain grammatical, syntax or spelling errors. Electronically signed by: Shady Browne M.D. 07/28/2020 11:03 AM Hospital Course (1) Comfort measures only status: (2) Acute and chronic respiratory failure with hypoxia: (3) ARDS (adult respiratory distress syndrome): (4) Pneumonia due to COVID-19 virus: (5) Pneumothorax: (6) Hypoxia: (7) Catheter-associated urinary tract infection: (8) Pneumomediastinum: (9) Hypertension: (10) CKD (chronic kidney disease), stage III: The patient is an 79-year-old man who was admitted for treatment of pneumonia secondary to COVID-19 virus. He was started on therapy with remdesivir and steroids and completed a full course of each. He subsequently declined on 07/19 and was changed to ICU status for worsening acute hypoxic respiratory failure. His steroid dose was increased. At that point his CODE STATUS was changed to DNR/DNI. Palliative therapy team was involved with his care. The ARDS evolved into a spontaneous pneumothorax on 07/22 and he underwent a right tube thoracostomy placed by Dr. Sharma and with general surgery. He developed subsequent pneumomediastinum and subcutaneous emphysema that persisted until his ultimate demise on 07/31. He continued to remain on supportive therapy and was given Lasix and full dose anticoagulation. A catheter associated UTI was noted and he was started on antibiotic therapy. On 07/29 he was transitioned to comfort measures only. On 07/30 he was placed on a morphine drip after subsequent doses of as needed morphine were given the previous day. He subsequently peacefully at 1:17 PM on 07/31/2020. Of note family members were allowed to be in the hospital since 07/29 with the patient. Family was notified by phone. Total Time Total Time Spent Total Time Spent (In Minutes): 60 Total Time Includes: Examination of the Patient, Discharge Planning, Medication Reconciliation and Communication With Other Providers Discharge Plan Discharge Items Patient Disposition: Discharge Diagnosis: Acute on chronic respiratory failure with hypoxia Pneumonia due to COVID-19 virus ARDS Right-sided pneumothorax status post chest tube placement Hypoxia Catheter associated urinary tract infection Pneumomediastinum Addtl Attending Provider Instructions: n/a, pt
== END 2020-07-31 16:45 | disposition expired | DRG 177 ==
LOC: ED 16:42 → SUATTDRO 20:26 → 2S 20:26 → 2E 07-19 09:07 → 3N 07-29 15:22